=== PATIENT | male | born 1940 | race Caucasian/White ===

== ENCOUNTER → 2016-11-05 | Outpatient (REF) | payer MEDICARE, MEDICAID ==
[~2016-11-05] MED LIST: /TAMS4CA PO; ADV250INH INH; ALBU17IN INH; ASPI81TA85 PO; BAYECHW PO; COLA100C PO; COLA50CA3 PO; DAILTAB49 PO; DOXY100C PO; DRIS50002 PO; FLEEENE4 PR; FOLI1TAB2 PO; FOLI1TAB86 PO; LEVA500T PO; LEVA750T PO; LEVO750T PO; LOPE2CA PO; LOPE2TAB3 PO; MAALSUS18 PO; METO-346 PO; METO12TA PO; MILKSUS5 PO; MIRA255PW PO; MOM30SS PO; MULTTAB4 PO; PRED10TA2 PO; Proscar PO; SENO8.6T10 PO; SENO8.6T9 PO; SERT-141 PO; THIA100T PO; TUSSLIQ3 PO; TYLE325T5 PO; VITA10003 PO; VITA100T2 PO; VITMTA PO; Vitamin B12 PO; XANA0.25 PO; ZOLO100T PO; no
== END ==
PROVIDERS: ATTEND Nurse Practitioner Family
DX: E55.9 Vitamin D deficiency, unspecified (principal)

== ENCOUNTER → 2016-12-25 | Outpatient (REF) | payer MEDICARE, MEDICAID ==
[~2016-12-25] MED LIST changes: -COLA100C PO; +COLA100C3 PO; -SERT-141 PO; +SERT50TA PO
== END ==
LOC: M LAB REF 16:49
PROVIDERS: ATTEND Nurse Practitioner Family
DX: S31.100A Unspecified open wound of abdominal wall, right upper quadrant without penetration into peritoneal cavity, initial encounter (principal); X58.XXXA Exposure to other specified factors, initial encounter; Y92.89 Other specified places as the place of occurrence of the external cause; Y93.89 Activity, other specified; Y99.8 Other external cause status

== ENCOUNTER → 2017-01-16 | Outpatient (CLI) | payer MEDICARE, MEDICAID ==
[~2017-01-16] MED LIST changes: +NORCOTAB PO
--- NOTE | 2017-01-16 16:24 | REP ---
CHEST, ONE VIEW: This examination has a rib series with a two view chest. REASON: Pain, status-post fall. The rib series consists of four views of the left ribs. The technique in obtain his examination is suboptimal and the osseous structures are under penetrated by the radiographic beam. Even though manipulation at the physician read station has optimized contrast it can not be to the degree that could be obtained with proper radiographic technique. With this said there is a subtle fracture involving the anterior end of the 8th rib on the left. Other fractures could exist. The accompanying two view chest shows suspected basilar fibrotic changes, however, the costophrenic angles were not included in total on the frontal view further limiting this exam. The heart is not enlarged. There is no pneumothorax. When the frontal view of the chest is compared to the latest prior PA view of the chest which is dated 09/16/2012, there does not appear to be a significant change. IMPRESSION: 1. The examination is markedly limited as described above. Rib series repeat is recommended. 2. The frontal view of the chest is suboptimal and I can not completely evaluate the lung bases as described above. Although this limited exam shows no acute cardiopulmonary disease, I recommend a repeat PA view of the chest to include all of the chest. Signed by Frank Iniguez DO 01/16/2017 04:54 P
== END ==
LOC: M SMT 12:14
PROVIDERS: ATTEND Nurse Practitioner Family
DX: R07.89 Other chest pain (principal)

== ENCOUNTER 2017-01-17 12:13 | Emergency (ER) | payer MEDICARE, MEDICAID ==
[~2017-01-17] VITALS: Ht 182.9 cm; Wt 77.0 kg
[~2017-01-17 12:13] MED LIST changes: -NORCOTAB PO
[2017-01-17 12:26] VITALS: BP 136/74
[2017-01-17] MEDS ORDERED: NORCOTAB PO (13:36)
[2017-01-17] MEDS ORDERED: NORCO, ANEXSIA 5/325MG TABLET (HYDROcodone/ACETAMINOPHEN) PO ONE (13:45)
== END 2017-01-17 15:02 | disposition home or self-care (01) ==
LOC: EDBD 12:13 → M ED 13:40
DX: N40.1 Benign prostatic hyperplasia with lower urinary tract symptoms (principal); S22.32XA Fracture of one rib, left side, initial encounter for closed fracture; W19.XXXA Unspecified fall, initial encounter; Y92.89 Other specified places as the place of occurrence of the external cause; Y93.89 Activity, other specified; Y99.9 Unspecified external cause status

== ENCOUNTER 2017-03-03 12:36 | Emergency (ER) | payer MEDICARE, MEDICAID ==
[~2017-03-03] VITALS: Ht 182.9 cm; Wt 77.3 kg
[~2017-03-03 12:36] MED LIST changes: -ALBU83IN INH; -BREO1INH INH; -CIPR-249 PO; +COLA100C3 PO; -COLA100C5 PO; -FERR325T16 PO; +FOLI1TAB2 PO; -FOLI1TAB4 PO; -IPRASOL4 INH; -LEVA1TAB2 PO; +LEVA500T PO; +LEVA750T PO; -LEVA750T7 PO; -OMEP20CA3 PO; +THIA100T PO; -THIA100T6 PO
[2017-03-03 14:22] LABS: MEAN CORPUSCULAR HEMOGLOBIN 36.1 pg (27.0-33.0); MEAN CORPUSCULAR HGB CONC 33.8 g/dl (32.0-36.5); MEAN CORPUSCULAR VOLUME 106.8 fl (80.0-96.0); RED CELL DISTRIBUTION WIDTH 15.4 % (11.5-14.5); WHITE BLOOD COUNT 13.8 K/mm3 (4.0-10.0)
[2017-03-03 14:25] LABS: INR 1.02
[2017-03-03 15:34] VITALS: BP 107/67
== END 2017-03-03 15:39 | disposition home or self-care (01) ==
LOC: M ED 13:16
DX: T83.038A Leakage of other urinary catheter, initial encounter (principal); R31.9 Hematuria, unspecified; I10 Essential (primary) hypertension; N40.0 Benign prostatic hyperplasia without lower urinary tract symptoms

== ENCOUNTER → 2017-03-03 | Outpatient (REF) | payer MEDICARE, MEDICAID ==
[~2017-03-03] MED LIST changes: +ALBU83IN INH; +BREO1INH INH; +CIPR-249 PO; -COLA100C3 PO; +COLA100C5 PO; +FERR325T16 PO; -FOLI1TAB2 PO; +FOLI1TAB4 PO; +IPRASOL4 INH; +LEVA1TAB2 PO; -LEVA500T PO; -LEVA750T PO; +LEVA750T7 PO; +NORCOTAB PO; +OMEP20CA3 PO; -THIA100T PO; +THIA100T6 PO
== END ==
PROVIDERS: ATTEND Nurse Practitioner Family
DX: R31.9 Hematuria, unspecified (principal)

== ENCOUNTER → 2017-03-18 | Outpatient (REF) | payer MEDICARE, MEDICAID ==
[~2017-03-18] MED LIST changes: +ALBU83IN INH; +BREO1INH INH; +CIPR-249 PO; -COLA100C3 PO; +COLA100C5 PO; +FERR325T16 PO; -FOLI1TAB2 PO; +FOLI1TAB4 PO; +IPRASOL4 INH; +LEVA1TAB2 PO; -LEVA500T PO; -LEVA750T PO; +LEVA750T7 PO; +OMEP20CA3 PO; -THIA100T PO; +THIA100T6 PO
== END ==
LOC: M SMT 17:39
PROVIDERS: ATTEND Nurse Practitioner Women's Health
DX: N39.0 Urinary tract infection, site not specified (principal); N28.89 Other specified disorders of kidney and ureter
CPT/HCPCS: 81001; 87086; G0463

== ENCOUNTER → 2017-03-25 | Outpatient (REF) | payer MEDICARE, MEDICAID ==
[2017-03-25 10:02] LABS: ANION GAP 5 MEQ/L (8-16); BLOOD UREA NITROGEN 18 MG/DL (7-18); CALCIUM LEVEL 8.4 MG/DL (8.8-10.2); CARBON DIOXIDE LEVEL 31 MEQ/L (21-32); CHLORIDE LEVEL 105 MEQ/L (98-107); CREATININE FOR GFR 0.77 MG/DL (0.70-1.30); GLOMERULAR FILTRATION RATE > 60.0 (>42); GLUCOSE, FASTING 80 MG/DL (83-110); POTASSIUM SERUM 4.2 MEQ/L (3.5-5.1); SODIUM LEVEL 141 MEQ/L (136-145)
== END ==
PROVIDERS: ATTEND Nurse Practitioner Women's Health
DX: N39.0 Urinary tract infection, site not specified (principal)

== ENCOUNTER → 2017-03-31 | Outpatient (CLI) | payer MEDICARE, MEDICAID ==
--- NOTE | 2017-03-31 16:32 | REP ---
HISTORY: Urinary retention. COMPARISON: 12/19/2015 There are chronic lung base changes with bronchiectasis, status quo. There is a large hiatal hernia, status quo. Limited evaluation of the solid intraabdominal organs and gallbladder show no gross abnormalities or significant changes from the prior exam. Limited evaluation of the pancreas and adrenal glands show no gross abnormalities or significant changes from the prior exam. Once again, there is a large low density lesion seen arising from the superior pole of the right kidney which is unchanged. Limited evaluation of this shows no definite mural nodules, however, thin septations cannot be excluded by this limited exam. Two focal areas of low density are again seen in the right kidney, status quo. These also have low Hounsfield unit readings consistent with cysts. Limited evaluation of the abdominal aorta and periaortic regions again show multiple borderline, but stable periaortic lymph nodes. No free fluid or free air is seen in the abdomen. Limited evaluation of the bowel loops and their mesenteries show no gross abnormalities or significant changes from the prior exam. CT PELVIS: There is no significant change from the prior exam. There is a Mcfadden balloon seen in the urinary bladder decompressing it, status quo. There is no free fluid or free air. There is no change in the appearance of the bowel loops or their mesenteries. Bone window technique throughout the examination shows no significant change in the appearance of the osseous structures. Spinal degenerative changes are again noted, status quo. IMPRESSION: Chronic changes as described above. This limited noncontrast enhanced examination shows no evidence of an acute intraabdominal or intrapelvic process with findings as described above. Signed by Frank Iniguez DO 03/31/2017 07:08 P
== END ==
LOC: M RAD 14:43
PROVIDERS: ATTEND Nurse Practitioner Women's Health
DX: N39.0 Urinary tract infection, site not specified (principal); N28.89 Other specified disorders of kidney and ureter

== ENCOUNTER → 2017-05-06 | Outpatient (REF) | payer MEDICARE, MEDICAID ==
[2017-05-06 10:32] LABS: MEAN CORPUSCULAR HEMOGLOBIN 34.7 pg (27.0-33.0); MEAN CORPUSCULAR HGB CONC 33.8 g/dl (32.0-36.5); MEAN CORPUSCULAR VOLUME 102.6 fl (80.0-96.0); RED CELL DISTRIBUTION WIDTH 13.9 % (11.5-14.5); WHITE BLOOD COUNT 7.7 K/mm3 (4.0-10.0)
[2017-05-06 11:07] LABS: ALBUMIN/GLOBULIN RATIO 1.15 (1.00-1.93); ALKALINE PHOSPHATASE 55 U/L (45-117); ALT/SGPT 11 U/L (12-78); ANION GAP 7 MEQ/L (8-16); AST/SGOT 8 U/L (15-37); BILIRUBIN,TOTAL 0.3 MG/DL (0.2-1.0); BLOOD UREA NITROGEN 18 MG/DL (7-18); CALCIUM LEVEL 7.7 MG/DL (8.8-10.2); CARBON DIOXIDE LEVEL 29 MEQ/L (21-32); CHLORIDE LEVEL 108 MEQ/L (98-107); CREATININE FOR GFR 0.83 MG/DL (0.70-1.30); GLOMERULAR FILTRATION RATE > 60.0 (>42); GLUCOSE, FASTING 78 MG/DL (83-110); POTASSIUM SERUM 4.4 MEQ/L (3.5-5.1); SODIUM LEVEL 144 MEQ/L (136-145); TOTAL PROTEIN 5.6 GM/DL (6.4-8.2)
== END ==
PROVIDERS: ATTEND Nurse Practitioner Family
DX: E03.9 Hypothyroidism, unspecified (principal); D64.9 Anemia, unspecified; I10 Essential (primary) hypertension

== ENCOUNTER → 2017-06-25 | Outpatient (CLI) | payer MEDICARE, MEDICAID ==
[2017-06-25 11:05] LABS: MEAN CORPUSCULAR HEMOGLOBIN 33.8 pg (27.0-33.0); MEAN CORPUSCULAR HGB CONC 33.5 g/dl (32.0-36.5); MEAN CORPUSCULAR VOLUME 100.8 fl (80.0-96.0); PLATELET COUNT, AUTOMATED 147 10^3/uL (150-450); RED CELL DISTRIBUTION WIDTH 13.4 % (11.5-14.5); WHITE BLOOD COUNT 14.6 10^3/uL (4.0-10.0)
[2017-06-25 12:08] LABS: ANION GAP 7 MEQ/L (8-16); BLOOD UREA NITROGEN 18 MG/DL (7-18); CARBON DIOXIDE LEVEL 29 MEQ/L (21-32); CHLORIDE LEVEL 101 MEQ/L (98-107); CREATININE FOR GFR 0.85 MG/DL (0.70-1.30); GLOMERULAR FILTRATION RATE > 60.0 (>42); GLUCOSE, FASTING 98 MG/DL (83-110); POTASSIUM SERUM 4.2 MEQ/L (3.5-5.1); SODIUM LEVEL 137 MEQ/L (136-145)
--- NOTE | 2017-06-25 16:24 | REP ---
Chest two views HISTORY: Preop Comparison: 01/16/2017 Linear density is present in the left lower lobe consistent with scar. The right lung is clear. The heart is normal in size. The pulmonary vasculature is normal in appearance. A hiatal hernia is present. Degenerative change is present in the left shoulder. IMPRESSION: No acute disease. Signed by Darrick Jones MD 06/25/2017 10:38 A
--- NOTE | 2017-06-25 16:32 | ECGEPIP ---
Stationary ECG Study [facility] Test Date: 2017-06-25 Pat Name: TIGIST RAY Department: Room: - Gender: M Bender Machine: JERRI : [id number] Requested By: ANDREW Newton Order Number: [id number] Reading MD: Royal Sanford Measurements Intervals [place] Rate: 64 P: 48 AL: 134 QRS: 18 QRSD: 77 T: 71 QT: 395 QTc: 408 Interpretive Statements SINUS RHYTHM LOW QRS VOLTAGE IN EXTREMITY LEADS No significant change compared with 07/19/2016. Electronically Signed On 06-25-2017 16:32:39 EDT by Royal Sanford
== END ==
LOC: M LAB 09:48
PROVIDERS: ATTEND Urology
DX: N21.0 Calculus in bladder (principal); R94.31 Abnormal electrocardiogram [ECG] [EKG]

== ENCOUNTER → 2017-07-03 | Outpatient (REF) | payer MEDICARE, MEDICAID | LOC: M LAB REF 16:32 | PROVIDERS: ATTEND Urology | DX: N21.0 Calculus in bladder (principal) ==

== ENCOUNTER 2017-09-22 18:38 | Emergency (ER) | payer MEDICARE, MEDICAID ==
[2017-09-22] MEDS: CIPROFLOXACIN 500 MG TAB PO (00:15)
[2017-09-22] MEDS: LIDOCAINE 2% 5ML JELLY UROJET TOP (20:45)
[2017-09-22 20:59] LABS: HEMATOCRIT 39.2 % (42.0-52.0); HEMOGLOBIN 13.6 g/dl (14.0-18.0); MEAN CORPUSCULAR HEMOGLOBIN 34.1 pg (27.0-33.0); MEAN CORPUSCULAR HGB CONC 34.7 g/dl (32.0-36.5); MEAN CORPUSCULAR VOLUME 98.2 fl (80.0-96.0); PLATELET COUNT, AUTOMATED 157 10^3/uL (150-450); RED BLOOD COUNT 3.99 10^6/uL (4.30-6.10); RED CELL DISTRIBUTION WIDTH 13.6 % (11.5-14.5); WHITE BLOOD COUNT 18.2 10^3/uL (4.0-10.0)
[2017-09-22 21:10] LABS: INR 1.02; PARTIAL THROMBOPLASTIN TIME 25.3 SECONDS (26.8-37.9); PROTHROMBIN TIME 13.5 SECONDS (12.4-14.5)
[2017-09-22 21:15] LABS: ADD MANUAL DIFFER YES; POSITIVE DIFF POS FLAG
[2017-09-22 21:16] LABS: DIFF SLIDE NUMBER 374
[2017-09-22 21:19] LABS: ANION GAP 8 MEQ/L (8-16); BANDS 4 % (< 11); BLOOD UREA NITROGEN 33 MG/DL (7-18); CALCIUM LEVEL 8.6 MG/DL (8.8-10.2); CARBON DIOXIDE LEVEL 30 MEQ/L (21-32); CHLORIDE LEVEL 100 MEQ/L (98-107); CREATININE FOR GFR 1.14 MG/DL (0.70-1.30); GLOMERULAR FILTRATION RATE > 60.0 (>42); GLUCOSE, FASTING 118 MG/DL (83-110); LYMPHOCYTES 24 % (16-52); METAMYELOCYTES 1 % (0-0); MONOCYTES 6 % (0-8); NEUTROPHILS 65 % (35-75); POTASSIUM SERUM 4.2 MEQ/L (3.5-5.1); SODIUM LEVEL 138 MEQ/L (136-145)
[2017-09-22 21:20] LABS: PLATELET ESTIMATE NORMAL (NORMAL)
[2017-09-22 21:25] LABS: KETONE, URINE AUTO RFX NEGATIVE (NEGATIVE); NITRITE, URINE AUTO RFX NEGATIVE (NEGATIVE); RBC, URINE AUTO RFX 134 /HPF (0-3); SPECIFIC GRAVITY UR AUTO RFX 1.008 (1.002-1.035); SQUAM EPITHELIAL CELL UR AURFX 0 /HPF (0-6)
[2017-09-22 21:30] LABS: LEUKOCYTE ESTERASE UR AUTO RFX 2+ (NEGATIVE); WBC, URINE AUTO RFX 21 /HPF (0-3)
== END 2017-09-23 00:33 | disposition home or self-care (01) ==
LOC: M ED 09-23 00:33
DX: N39.0 Urinary tract infection, site not specified (principal); T83.9XXD Unspecified complication of genitourinary prosthetic device, implant and graft, subsequent encounter; Z79.899 Other long term (current) drug therapy; Z79.82 Long term (current) use of aspirin; Z79.51 Long term (current) use of inhaled steroids; Z87.442 Personal history of urinary calculi
CPT/HCPCS: 80048

== ENCOUNTER → 2017-10-21 | Outpatient (REF) | payer MEDICARE, MEDICAID ==
[2017-10-21 10:13] LABS: HEMATOCRIT 34.4 % (42.0-52.0); HEMOGLOBIN 11.9 g/dl (14.0-18.0); MEAN CORPUSCULAR HGB CONC 34.6 g/dl (32.0-36.5); MEAN CORPUSCULAR VOLUME 98.3 fl (80.0-96.0); PLATELET COUNT, AUTOMATED 113 10^3/uL (150-450); RED CELL DISTRIBUTION WIDTH 13.6 % (11.5-14.5); WHITE BLOOD COUNT 9.7 10^3/uL (4.0-10.0)
[2017-10-21 10:47] LABS: ALBUMIN 3.1 GM/DL (3.2-5.2); ALBUMIN/GLOBULIN RATIO 1.07 (1.00-1.93); ALKALINE PHOSPHATASE 86 U/L (45-117); ALT/SGPT 12 U/L (12-78); ANION GAP 8 MEQ/L (8-16); AST/SGOT 14 U/L (7-37); BILIRUBIN,TOTAL 0.5 MG/DL (0.2-1.0); BLOOD UREA NITROGEN 27 MG/DL (7-18); CALCIUM LEVEL 8.5 MG/DL (8.8-10.2); CARBON DIOXIDE LEVEL 31 MEQ/L (21-32); CHLORIDE LEVEL 100 MEQ/L (98-107); CREATININE FOR GFR 0.98 MG/DL (0.70-1.30); GLOMERULAR FILTRATION RATE > 60.0 (>42); GLUCOSE, FASTING 97 MG/DL (70-100); POTASSIUM SERUM 3.7 MEQ/L (3.5-5.1); SODIUM LEVEL 139 MEQ/L (136-145)
== END ==
DX: E03.9 Hypothyroidism, unspecified (principal)
CPT/HCPCS: 84443

== ENCOUNTER 2017-12-02 11:24 | Emergency (ER) | payer MEDICARE, MEDICAID | END 2017-12-02 14:24 | disposition home or self-care (01) | LOC: M ED 11:24 | DX: T83.098A Other mechanical complication of other urinary catheter, initial encounter (principal); Y92.9 Unspecified place or not applicable; Y93.9 Activity, unspecified; I51.9 Heart disease, unspecified; I10 Essential (primary) hypertension; J44.9 Chronic obstructive pulmonary disease, unspecified; D64.9 Anemia, unspecified; Z79.82 Long term (current) use of aspirin; Z79.899 Other long term (current) drug therapy | CPT/HCPCS: 51703 ==

== ENCOUNTER 2018-01-07 18:43 | Emergency (ER) | payer MEDICARE, MEDICAID | END 2018-01-07 21:01 | disposition home or self-care (01) | LOC: M ED 18:43 | DX: Z46.6 Encounter for fitting and adjustment of urinary device (principal); R33.9 Retention of urine, unspecified; I10 Essential (primary) hypertension; J44.9 Chronic obstructive pulmonary disease, unspecified; N40.1 Benign prostatic hyperplasia with lower urinary tract symptoms; Z87.891 Personal history of nicotine dependence; Z79.899 Other long term (current) drug therapy; Z79.82 Long term (current) use of aspirin; Z79.52 Long term (current) use of systemic steroids; Z79.51 Long term (current) use of inhaled steroids | CPT/HCPCS: 99284 ==

== ENCOUNTER 2018-01-18 11:06 | Emergency (ER) | payer MEDICARE, MEDICAID | END 2018-01-18 12:08 | disposition home or self-care (01) | LOC: M ED 11:06 | DX: T83.098A Other mechanical complication of other urinary catheter, initial encounter (principal); Y73.2 Prosthetic and other implants, materials and accessory gastroenterology and urology devices associated with adverse incidents; N40.1 Benign prostatic hyperplasia with lower urinary tract symptoms; J44.9 Chronic obstructive pulmonary disease, unspecified; K21.9 Gastro-esophageal reflux disease without esophagitis; Z79.899 Other long term (current) drug therapy; Z79.84 Long term (current) use of oral hypoglycemic drugs; Z79.82 Long term (current) use of aspirin | CPT/HCPCS: 87186 ==

== ENCOUNTER 2018-02-06 18:28 | Emergency (ER) | payer MEDICARE, MEDICAID ==
[2018-02-06] MEDS ORDERED: LIDOCAINE 2% 5ML JELLY UROJET TOP (20:00)
== END 2018-02-06 21:37 | disposition home or self-care (01) ==
LOC: M ED 18:28
DX: T83.018A Breakdown (mechanical) of other urinary catheter, initial encounter (principal); Y84.6 Urinary catheterization as the cause of abnormal reaction of the patient, or of later complication, without mention of misadventure at the time of the procedure; Z85.46 Personal history of malignant neoplasm of prostate; D64.9 Anemia, unspecified; J44.9 Chronic obstructive pulmonary disease, unspecified; K21.9 Gastro-esophageal reflux disease without esophagitis; Z79.899 Other long term (current) drug therapy; Z79.82 Long term (current) use of aspirin; Z79.52 Long term (current) use of systemic steroids; Z79.51 Long term (current) use of inhaled steroids
CPT/HCPCS: 87086

== ENCOUNTER 2018-03-05 10:00 | Emergency (ER) | payer MEDICARE, MEDICAID | END 2018-03-05 11:47 | disposition home or self-care (01) | LOC: M ED 10:00 | DX: T83.098A Other mechanical complication of other urinary catheter, initial encounter (principal); Y92.9 Unspecified place or not applicable; Y93.9 Activity, unspecified; J44.9 Chronic obstructive pulmonary disease, unspecified; D64.9 Anemia, unspecified; R33.9 Retention of urine, unspecified; F10.10 Alcohol abuse, uncomplicated; Z87.891 Personal history of nicotine dependence; Z79.82 Long term (current) use of aspirin; Z79.899 Other long term (current) drug therapy | CPT/HCPCS: 51703 ==

== ENCOUNTER 2018-04-28 14:04 | Emergency (ER) | payer MEDICARE, MEDICAID | END 2018-04-28 15:20 | disposition home or self-care (01) | LOC: M ED 14:04 | DX: T83.091A Other mechanical complication of indwelling urethral catheter, initial encounter (principal); Y84.6 Urinary catheterization as the cause of abnormal reaction of the patient, or of later complication, without mention of misadventure at the time of the procedure; R10.9 Unspecified abdominal pain; D64.9 Anemia, unspecified; N40.0 Benign prostatic hyperplasia without lower urinary tract symptoms; I10 Essential (primary) hypertension; K31.1 Adult hypertrophic pyloric stenosis; Z87.891 Personal history of nicotine dependence; Z79.899 Other long term (current) drug therapy; Z79.52 Long term (current) use of systemic steroids; Z79.82 Long term (current) use of aspirin | CPT/HCPCS: 99283 ==

== ENCOUNTER → 2018-05-08 | Outpatient (REF) | payer MEDICARE, MEDICAID ==
[2018-05-08 10:27] LABS: HEMATOCRIT 38.4 % (42.0-52.0); MEAN CORPUSCULAR HGB CONC 33.9 g/dl (32.0-36.5); MEAN CORPUSCULAR VOLUME 103.5 fl (80.0-96.0); PLATELET COUNT, AUTOMATED 156 10^3/uL (150-450); RED BLOOD COUNT 3.71 10^6/uL (4.30-6.10); RED CELL DISTRIBUTION WIDTH 13.8 % (11.5-14.5); WHITE BLOOD COUNT 14.7 10^3/uL (4.0-10.0)
[2018-05-08 11:02] LABS: ALBUMIN 3.4 GM/DL (3.2-5.2); ALBUMIN/GLOBULIN RATIO 1.03 (1.00-1.93); ALKALINE PHOSPHATASE 78 U/L (45-117); ALT/SGPT 14 U/L (12-78); ANION GAP 8 MEQ/L (8-16); AST/SGOT 9 U/L (7-37); BILIRUBIN,TOTAL 0.5 MG/DL (0.2-1.0); BLOOD UREA NITROGEN 21 MG/DL (7-18); CALCIUM LEVEL 8.5 MG/DL (8.8-10.2); CARBON DIOXIDE LEVEL 29 MEQ/L (21-32); CHLORIDE LEVEL 105 MEQ/L (98-107); GLOMERULAR FILTRATION RATE > 60.0 (>42); GLUCOSE, FASTING 94 MG/DL (70-100); POTASSIUM SERUM 4.1 MEQ/L (3.5-5.1); SODIUM LEVEL 142 MEQ/L (136-145); TOTAL PROTEIN 6.7 GM/DL (6.4-8.2)
== END ==
DX: D64.9 Anemia, unspecified (principal); I10 Essential (primary) hypertension; E05.90 Thyrotoxicosis, unspecified without thyrotoxic crisis or storm
CPT/HCPCS: 84443

== ENCOUNTER → 2018-06-15 | Outpatient (REF) | payer MEDICARE, MEDICAID ==
[2018-06-15 18:52] LABS: APPEARANCE, URINE CLEAR (CLEAR); BACTERIA, URINE AUTO NEGATIVE (NEGATIVE); BILIRUBIN, URINE AUTO NEGATIVE (NEGATIVE); BLOOD, URINE BLOOD 2+ (NEGATIVE); COLOR, URINE YELLOW (YELLOW); GLUCOSE, URINE (UA) AUTO NEGATIVE (NEGATIVE); KETONE, URINE AUTO NEGATIVE (NEGATIVE); LEUKOCYTE ESTERASE, URINE AUTO 1+ (NEGATIVE); MUCUS, URINE SMALL (NEGATIVE); NITRITE, URINE AUTO NEGATIVE (NEGATIVE); PROTEIN, URINE AUTO NEGATIVE (NEGATIVE); RBC, URINE AUTO 4 /HPF (0-3); SPECIFIC GRAVITY URINE AUTO 1.011 (1.002-1.035); SQUAMOUS EPITHELIAL CELL UR AU 0 /HPF (0-6); UROBILINOGEN, URINE AUTO 0.2 mg/dL (0.0-2.0); WBC, URINE AUTO 5 /HPF (0-3)
== END ==
LOC: M SMT 17:25
DX: R32 Unspecified urinary incontinence (principal)
CPT/HCPCS: 81001

== ENCOUNTER 2018-07-15 13:43 | Emergency (ER) | payer MEDICARE, MEDICAID | END 2018-07-15 15:11 | disposition home or self-care (01) | LOC: M ED 13:43 | DX: T83.098A Other mechanical complication of other urinary catheter, initial encounter (principal); Y92.9 Unspecified place or not applicable; Y93.9 Activity, unspecified; N40.1 Benign prostatic hyperplasia with lower urinary tract symptoms; J44.9 Chronic obstructive pulmonary disease, unspecified; D50.9 Iron deficiency anemia, unspecified; K31.1 Adult hypertrophic pyloric stenosis; Z87.891 Personal history of nicotine dependence; Z79.82 Long term (current) use of aspirin; Z79.899 Other long term (current) drug therapy | CPT/HCPCS: 99283 ==

== ENCOUNTER 2018-07-18 13:33 | Emergency (ER) | payer MEDICARE, MEDICAID | END 2018-07-18 15:00 | disposition home or self-care (01) | LOC: M ED 13:33 | DX: T83.028A Displacement of other urinary catheter, initial encounter (principal); I10 Essential (primary) hypertension; J44.9 Chronic obstructive pulmonary disease, unspecified; G47.33 Obstructive sleep apnea (adult) (pediatric) | CPT/HCPCS: 99283 ==

== ENCOUNTER 2018-07-19 13:08 | Emergency (ER) | payer MEDICARE, MEDICAID ==
[2018-07-19] MEDS: IPRATROPIUM 0.5MG/ALBUTEROL 2.5MG INH SOL UD 3ML (DUONEB)(J7620) NEB ×3 (13:37→14:33)
[2018-07-19] MEDS: predniSONE 20 MG TAB PO (14:45)
== END 2018-07-19 16:03 | disposition home or self-care (01) ==
LOC: M ED 13:08
DX: T83.098A Other mechanical complication of other urinary catheter, initial encounter (principal); J44.1 Chronic obstructive pulmonary disease with (acute) exacerbation; I10 Essential (primary) hypertension; F41.9 Anxiety disorder, unspecified; Z79.899 Other long term (current) drug therapy; Z79.82 Long term (current) use of aspirin; Z87.891 Personal history of nicotine dependence
CPT/HCPCS: 99284

== ENCOUNTER → 2018-08-12 | Outpatient (REF) | payer MEDICARE, MEDICAID ==
[2018-08-12 14:21] LABS: AMORPHOUS SEDIMENT SMALL (NEGATIVE); APPEARANCE, URINE CLOUDY (CLEAR); BACTERIA, URINE AUTO 1+ (NEGATIVE); BILIRUBIN, URINE AUTO NEGATIVE (NEGATIVE); BLOOD, URINE BLOOD 3+ (NEGATIVE); COLOR, URINE YELLOW (YELLOW); GLUCOSE, URINE (UA) AUTO NEGATIVE (NEGATIVE); KETONE, URINE AUTO NEGATIVE (NEGATIVE); LEUKOCYTE ESTERASE, URINE AUTO 3+ (NEGATIVE); MUCUS, URINE SMALL (NEGATIVE); NITRITE, URINE AUTO NEGATIVE (NEGATIVE); PROTEIN, URINE AUTO NEGATIVE (NEGATIVE); RBC, URINE AUTO 52 /HPF (0-3); SPECIFIC GRAVITY URINE AUTO 1.014 (1.002-1.035); SQUAMOUS EPITHELIAL CELL UR AU 0 /HPF (0-6); UROBILINOGEN, URINE AUTO 0.2 mg/dL (0.0-2.0); WBC, URINE AUTO 51 /HPF (0-3)
== END ==
DX: R41.82 Altered mental status, unspecified (principal)
CPT/HCPCS: 81001

== ENCOUNTER → 2018-09-04 | Outpatient (REF) | payer MEDICARE, MEDICAID ==
[~2018-09-04] MED LIST changes: +ACET20%4ML INH; +ASPI81TA24 PO; +CLAR10CA3 PO; -DRIS50002 PO; +DRIS50003 PO; +FOLI1TAB11 PO; -FOLI1TAB4 PO; +HYDR-3713 PO; +IPRA0.00 INH; -IPRASOL4 INH; +LASI40TA9 PO; +METO1TAB87 PO; +PRED10PA2 PO; +SERT-138 PO; -THIA100T6 PO; +THIA100T7 PO; +VENTAER INH
[2018-09-04 18:16] LABS: APPEARANCE, URINE HAZY (CLEAR); BACTERIA, URINE AUTO NEGATIVE (NEGATIVE); BILIRUBIN, URINE AUTO NEGATIVE (NEGATIVE); BLOOD, URINE BLOOD 2+ (NEGATIVE); COLOR, URINE YELLOW (YELLOW); GLUCOSE, URINE (UA) AUTO NEGATIVE (NEGATIVE); KETONE, URINE AUTO NEGATIVE (NEGATIVE); LEUKOCYTE ESTERASE, URINE AUTO 2+ (NEGATIVE); MUCUS, URINE SMALL (NEGATIVE); NITRITE, URINE AUTO NEGATIVE (NEGATIVE); PROTEIN, URINE AUTO NEGATIVE (NEGATIVE); RBC, URINE AUTO 5 /HPF (0-3); SPECIFIC GRAVITY URINE AUTO 1.012 (1.002-1.035); SQUAMOUS EPITHELIAL CELL UR AU 0 /HPF (0-6); UROBILINOGEN, URINE AUTO 0.2 mg/dL (0.0-2.0); WBC, URINE AUTO 57 /HPF (0-3)
== END ==
LOC: M SMT 16:49
PROVIDERS: ATTEND Nurse Practitioner Women's Health
DX: N50.819 Testicular pain, unspecified (principal)

== ENCOUNTER 2018-09-09 10:14 | Inpatient (IN) | payer MEDICARE, MEDICAID ==
[~2018-09-09] VITALS: Ht 175.3 cm; Wt 94.7 kg
[~2018-09-09 10:14] MED LIST changes: -ACET20%4ML INH; -CLAR10CA3 PO; -PRED10PA2 PO
[2018-09-09 10:37] LABS: ABG HCO3 27.3 MEQ/L (22.0-26.0); ABG O2 SATURATION 95.1 % (95.0-99.0); ABG PARTIAL PRESSURE CO2 40.9 mmHg (35.0-45.0); ABG STANDARD HCO3 27.1 MEQ/L (22.0-26.0); ABG TOTAL CO2 28.6 MEQ/L (23.0-31.0); ABG pH (ARTERIAL) 7.443 UNITS (7.350-7.450)
[2018-09-09 10:40] LABS: HEMATOCRIT 39.1 % (42.0-52.0); HEMOGLOBIN 13.1 g/dl (13.5-17.5); MEAN CORPUSCULAR HEMOGLOBIN 35.5 pg (27.0-33.0); MEAN CORPUSCULAR HGB CONC 33.5 g/dl (32.0-36.5); PLATELET COUNT, AUTOMATED 106 10^3/uL (150-450); RED BLOOD COUNT 3.69 10^6/uL (4.30-6.10)
[2018-09-09] MEDS ORDERED: CLAR10CA3 PO (10:41)
[2018-09-09] MEDS ORDERED: CIPR-249 PO (10:41)
[2018-09-09 10:42] LABS: WHITE BLOOD COUNT 11.7 10^3/uL (4.0-10.0)
--- NOTE | 2018-09-09 10:50 | REP ---
Chest one-view HISTORY: Cough Comparison: 06/25/2017 Linear density is present in the left lower lobe consistent with scar. The right lung is clear. The heart is normal in size. The pulmonary vasculature is normal in appearance. Impression: No acute disease. Electronically Signed by Darrick Jones MD 09/09/2018 10:42 A
[2018-09-09 11:03] LABS: ATYPICAL LYMPH 5 % (0-5); BASOPHILS 1 % (0-4); LYMPHOCYTES 40 % (16-52); MONOCYTES 6 % (0-8); NEUTROPHILS 48 % (35-75); PLATELET ESTIMATE DECREASED (NORMAL)
[2018-09-09] MEDS ORDERED: IPRATROPIUM 0.5MG/ALBUTEROL 2.5MG INH SOL UD 3ML (DUONEB)(J7620) NEB ONE (11:15)
[2018-09-09 11:17] LABS: ALBUMIN 3.5 GM/DL (3.2-5.2); BILIRUBIN,DIRECT 0.2 MG/DL (0.0-0.2); BILIRUBIN,TOTAL 0.7 MG/DL (0.2-1.0); CALCIUM LEVEL 8.8 MG/DL (8.8-10.2); CREATININE FOR GFR 1.29 MG/DL (0.70-1.30); GLOMERULAR FILTRATION RATE 57.6 (>42); MB/CK RELATIVE INDEX 1.55 (< OR =4); THYROID STIMULATING HORMONE 0.666 uIU/ML (0.358-3.740); TOTAL PROTEIN 7.3 GM/DL (6.4-8.2); TROPONIN I 0.03 NG/ML (< 0.10)
[2018-09-09] MEDS ORDERED: OSELTAMIVIR PHOSPHATE 75 MG CAP (TAMIFLU) PO ONE (13:00)
[2018-09-09 13:32] VITALS: O2SAT 90
[2018-09-09] MEDS ORDERED: methylPREDNISolone INJ 125 MG/2 ML VIAL (J2930) IV ONE (13:45)
[2018-09-09] MEDS: HEPARIN SOD (PORCINE) 5000 UNITS/ML VIAL SC SCH ×2 (14:00→21:05)
[2018-09-09] MEDS ORDERED: ACETAMINOPHEN TAB 650MG DOSE (2X325MG) PO PRN (14:30)
--- NOTE | 2018-09-09 14:58 | HPEPDOC ---
General Date of Admission Sep 09, 2018 at 14:29 Chief Complaint The patient is a 78-year-old male who presented to the ER with complaints of ryne rtness of breath History of Present Illness Patient is a 78-year-old male with a PMHx of HTN, COPD on O2, Depression, BPH / Urinary retention (s/p Chronic Mcfadden catheter), Hx of PVC, GERD who is a resident of [facility] who presented to the emergency room with complaints of shortness of breath that has been going on for approximately 7-10 days. Patient has noted that his shortness of breath has been progressive. . He denies any chest pain or palpitations. Denies any productive cough. Denies any fevers or chills. Patient does report two-pillow orthopnea but denies any nighttime awakenings because of shortness of breath. Patient denies any lower extremity edema. Patient denies any nausea, vomiting, abdominal pain, constipation or diarrhea. Patient does have a chronic Mcfadden catheter in place. He is unsure of when this was last changed. He does follow with Dr. Guerra as an outpatient. As per ER staff, patient has been reported to be noncompliant with his oxygen use as an outpatient. Patient denies any significant change to his weight, and notes that his appetite has improved over the years. Home Medications Scheduled Albuterol/Ipratropium (Ipratropium [place]/Albut 0.5-2.5 (3) mg/3Ml) 1 Jennifer Jennifer, 1 JENNIFER INH TID, (Reported) 0600/1400/2000 Aspirin (Aspirin EC) 81 Mg Tab, 81 MG PO DAILY, (Reported) Ciprofloxacin HCl (Cipro) 500 Mg Tab, 500 MG PO BID, (Reported) FOR 11 DAYS. FINISH ON 09/15/18. Cyanocobalamin (Vitamin B-12 Cr) 1,000 Mcg Tab, 1,000 MCG PO DAILY, (Reported) Docusate Sod/Senna (Senokot S 8.6-50 mg) 1 Tab Tab, 1 TAB PO DAILY, (Reported) Docusate Sodium (Colace) 100 Mg Cap, 100 MG PO BID, (Reported) Ferrous Gluconate (Ferrous Gluconate) 324 Mg Tab, 324 MG PO BID, (Reported) Fluticasone/Vilanterol (Breo Ellipta 100-25 Mcg/INH) 1 Inh Inh, 1 PUFF INH DAILY, (Reported) Folic Acid (Folic Acid) 1 Mg Tab, 1 MG PO DAILY, (Reported) Furosemide (Lasix) 40 Mg Tab, 40 MG PO DAILY, (Reported) Loratadine (Claritin) 10 Mg Cap, 10 MG PO DAILY, (Reported) Metoprolol Tartrate (Metoprolol Tartrate) 25 Mg Tab, 12.5 MG PO BID, (Reported) Omeprazole (Omeprazole) 20 Mg Cap, 20 MG PO DAILY, (Reported) Prednisone (Prednisone) 10 Mg Tab, 10 MG PO DAILY, (Reported) Sertraline HCl (Sertraline HCl) 100 Mg Tab, 150 MG PO DAILY, (Reported) Thiamine HCl (Thiamine HCl) 100 Mg Tab, 100 MG PO DAILY, (Reported) Scheduled PRN Acetaminophen (Tylenol) 325 Mg Tab, 650 MG PO Q4H PRN for PAIN, (Reported) Acetaminophen/Hydrocodone (Hydrocodone/Acetaminophen 5-325 mg) 1 Tab Tab, 1 TAB PO Q6H PRN for PAIN, (Reported) Albuterol Sulfate (Albuterol Sulfate) 2.5 Mg/3 Ml Nebu, 2.5 MG INH Q2HP PRN for SOB/WHEEZING, (Reported) Albuterol Sulfate (Ventolin Hfa) 108 Mcg/Act Aer, 2 PUFFS INH Q6H PRN for SHORTNESS OF BREATH, (Reported) Loperamide HCl (Loperamide HCl) 2 Mg Cap, 2 MG PO for DIARRHEA, (Reported) Allergies Coded Allergies: No Known Allergies (Verified , 03/05/18) Past Medical History Medical History HTN, COPD on O2, Depression, BPH / Urinary retention (s/p Chronic Mcfadden catheter), Hx of PVC, GERD Surgical History Hx of Pyloric stenosis - s/p repair (Child) Family History - Noncontributory given advanced age Social History - Denies the use of illicit drugs; quit smoking 5 years ago but was a smoker of 50 years at 1 [facility]. 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 No evidence of rhonchi, rales - Abdomen: Soft, Non-distended, Non-tender, old scar/stretched lesions from prior surgery - Extremities: No lower extremity edema, No calf tenderness - Neuro: No focal motor or sensory deficit - Skin: No visible rashes Laboratory Data Labs 24H Laboratory Tests 2 09/09/18 10:23: Blood Gas Bicarbonate Standard 27.1H, Arterial Blood pH 7.443, Arterial Blood Partial Pressure CO2 40.9, Arterial Blood Partial Pressure O2 76.0, Arterial Blo od Total CO2 28.6, Arterial Blood HCO3 27.3H, Arterial Blood Base Excess 3.0H, Arterial Blood Oxygen Saturation 95.1 09/09/18 10:29: White Blood Count 11.7H, Red Blood Count 3.69L, Hemoglobin 13.1L, Hematocrit 39.1L, Mean Corpuscular Volume 106.0H, Mean Corpuscular Hemoglobin 35.5H, Mean Corpuscular Hemoglobin Concent 33.5, Red Cell Distribution Width 13.5, Platelet Count 106L, Lymphocytes # (Auto) , Nucleated Red Blood Cells % (auto) 0.0, Neutrophils 48, Lymphocytes (Manual) 40, Monocytes (Manual) 6, Basophils (Manual) 1, Atypical Lymphocytes 5, Platelet Estimate DECREASED, Macrocytosis 2+, Anion Gap 8, Glomerular Filtration Rate 57.6, Lactic Acid Level 1.4, Calcium Level 8.8, Aspartate Amino Transf (AST/SGOT) 29, Alanine Aminotransferase (ALT/SGPT) 26, Alkaline Phosphatase 90, Total Bilirubin 0.7, Direct Bilirubin 0.2, Total Creatine Kinase 110, Creatine Kinase MB 2.0, Creatine Kinase MB Relative Index 1.55, Troponin I 0.03, LO-Gbh-N-Type Natriuretic Peptide 548H, Total Protein 7.3, Albumin 3.5, Albumin/Globulin Ratio 0.92L, Thyroid Stimulating Hormone (TSH) 0.666 CBC/BMP Laboratory Tests 09/09/18 10:29 Red Blood Count 3.69 L, Mean Corpuscular Volume 106.0 H, Mean Corpuscular Hemoglobin 35.5 H, Mean Corpuscular Hemoglobin Concent 33.5, Red Cell Distribution Width 13.5, Lymphocytes # (Auto) Microbiology Microbiology 09/09/18 Blood Culture, Received Pending 09/09/18 Blood Culture, Received Pending 09/09/18 Respiratory Virus Panel (PCR) ([facility]) - Final, Complete Influenza A H1-2008 Plan / VTE VTE Prophylaxis Ordered?: Yes Plan Plan Acute hypoxic respiratory failure / Shortness of breath - Presented to the ER with complaints of shortness of breath - Has been reported to use oxygen as an outpatient for COPD; however has not been compliant - Physical reveals mild expiratory wheezing - Mild leukocytosis, no lactic acidosis - Respiratory panel: + Influenza A - CXR 09/09: No acute disease. - s/p Solumedrol 125mg in ER - c/w Inhaled therapy as ordered and Solumedrol 30 IV q8h - c/w Tamiflu HTN - BP well controlled - Reported history of orthopnea - Will check ECHO - c/w Metoprolol / Furosemide Depression - c/w Sertraline BPH / Urinary retention - s/p Chronic Mcfadden catheter - Changed on 09/05/18 by Urology clinic - Was prescribed Ciprofloxacin 500mg BID (Day #4) Hx of PVC GERD - c/w Omeprazole DVT prophylaxis - Will start Heparin BRISEIDA ALBRECHT MD Sep 09, 2018 14:58
[2018-09-09] MEDS ORDERED: NORCO, ANEXSIA 5/325MG TABLET (HYDROcodone/ACETAMINOPHEN) PO PRN (16:30)
[2018-09-09 16:45] VITALS: BP 161/80
[2018-09-09] MEDS: IPRATROPIUM 0.5MG/ALBUTEROL 2.5MG INH SOL UD 3ML (DUONEB)(J7620) NEB SCH ×2 (21:02→21:03)
[2018-09-09] MEDS: methylPREDNISolone INJ 40 MG/1 ML VIAL (J2920) IV SCH (21:03)
[2018-09-09] MEDS: CIPROFLOXACIN 500 MG TAB PO SCH (21:04)
[2018-09-09] MEDS: FERROUS GLUCONATE 324 MG TAB PO SCH (21:04)
[2018-09-09] MEDS: METOPROLOL TART 12.5 MG PER 1/2 TAB PO SCH (21:04)
[2018-09-09] MEDS: OSELTAMIVIR PHOSPHATE 75 MG CAP (TAMIFLU) PO SCH (21:04)
--- NOTE | 2018-09-09 21:57 | ECHO ---
DATE OF PROCEDURE: 09/09/2018 REFERRING PHYSICIAN: Jennifer Fleming MD PATIENT LOCATION: Room 4222 REASON FOR ECHOCARDIOGRAM: Shortness of breath. 2D MEASUREMENTS: IVS: LV: LVPW: LA: Aorta: IVC/inferior vena cava: 1.4 cm DOPPLER MEASUREMENTS: Peak velocity across the aortic valve: 0.95 Peak velocity across the LVOT: 0.55 Mitral E: 0.5, Mitral A: 0.7, with a ratio of 0.7 Maximum tricuspid valve velocity: 2.8 m/s 2D COMMENTS: 1. Technically limited study due to poor acoustic window. 2. The left ventricular size appeared to be normal as well as left ventricular wall thickness and systolic function. The estimated global left ventricular ejection fraction is 60%. 3. The left atrium appeared to be normal in limited views. The right ventricle and the right atrium were not well visualized, but appeared to be normal in limited views. 4. The aortic root was not well visualized. 5. No pericardial effusion seen. 6. The aortic valve was not well visualized. The mitral valve and the tricuspid valve appeared to be normal in limited views. The pulmonic valve and proximal pulmonary artery branches were not well visualized. 7. The inferior vena cava appeared to be normal in size in limited views. DOPPLER: Only mild tricuspid regurgitation detected. The calculated pulmonary artery systolic pressure varied between 30 to 40 mmHg. Abnormal relaxation pattern was noted across the mitral valve leaflets as well as the mitral valve annulus consistent with delayed relaxation. IMPRESSION: 1. Technically limited study. 2. As mentioned above.
[2018-09-09 22:00] VITALS: BP 138/92
[2018-09-10] MEDS: methylPREDNISolone INJ 40 MG/1 ML VIAL (J2920) IV SCH ×3 (05:13→21:27)
[2018-09-10] MEDS: HEPARIN SOD (PORCINE) 5000 UNITS/ML VIAL SC SCH ×3 (05:14→21:26)
[2018-09-10] MEDS: IPRATROPIUM 0.5MG/ALBUTEROL 2.5MG INH SOL UD 3ML (DUONEB)(J7620) NEB PRN ×2 (05:20→22:36)
[2018-09-10 05:51] LABS: HEMOGLOBIN 11.7 g/dl (13.5-17.5); MEAN CORPUSCULAR HEMOGLOBIN 34.6 pg (27.0-33.0); MEAN CORPUSCULAR HGB CONC 33.4 g/dl (32.0-36.5); MEAN CORPUSCULAR VOLUME 103.6 fl (80.0-96.0); PLATELET COUNT, AUTOMATED 104 10^3/uL (150-450); RED BLOOD COUNT 3.38 10^6/uL (4.30-6.10)
[2018-09-10 05:54] LABS: WHITE BLOOD COUNT 11.6 10^3/uL (4.0-10.0)
[2018-09-10 06:00] VITALS: BP 140/82
[2018-09-10 06:12] LABS: ALT/SGPT 23 U/L (12-78); BILIRUBIN,TOTAL 0.4 MG/DL (0.2-1.0); BLOOD UREA NITROGEN 38 MG/DL (7-18); CALCIUM LEVEL 8.5 MG/DL (8.8-10.2); CARBON DIOXIDE LEVEL 31 MEQ/L (21-32); CHLORIDE LEVEL 101 MEQ/L (98-107); CREATININE FOR GFR 1.15 MG/DL (0.70-1.30); GLOMERULAR FILTRATION RATE > 60.0 (>42); GLUCOSE, FASTING 128 MG/DL (70-100); MAGNESIUM LEVEL 2.2 MG/DL (1.8-2.4); POTASSIUM SERUM 4.1 MEQ/L (3.5-5.1); SODIUM LEVEL 139 MEQ/L (136-145); TOTAL PROTEIN 6.5 GM/DL (6.4-8.2)
[2018-09-10 06:31] LABS: ATYPICAL LYMPH 1 % (0-5); LYMPHOCYTES 34 % (16-52); MONOCYTES 7 % (0-8); NEUTROPHILS 58 % (35-75)
[2018-09-10 06:32] LABS: GIANT PLATELETS 1+; PLATELET ESTIMATE DECREASED (NORMAL)
[2018-09-10] MEDS: IPRATROPIUM 0.5MG/ALBUTEROL 2.5MG INH SOL UD 3ML (DUONEB)(J7620) NEB SCH ×4 (07:20→20:07)
[2018-09-10] MEDS: OMEPRAZOLE 20 MG CAP PO SCH (09:08)
[2018-09-10] MEDS: ASPIRIN 81 MG ENTERIC TAB PO SCH (09:08)
[2018-09-10] MEDS: FOLIC ACID 1 MG TAB PO SCH (09:08)
[2018-09-10] MEDS: LORATADINE 10 MG TAB PO SCH (09:08)
[2018-09-10] MEDS: CYANOCOBALAMIN 500 MCG TAB PO SCH (09:08)
[2018-09-10] MEDS: FERROUS GLUCONATE 324 MG TAB PO SCH ×2 (09:08→21:27)
[2018-09-10] MEDS: THIAMINE 100 MG TAB PO SCH (09:08)
[2018-09-10] MEDS: OSELTAMIVIR PHOSPHATE 75 MG CAP (TAMIFLU) PO SCH ×2 (09:08→21:27)
[2018-09-10] MEDS: CIPROFLOXACIN 500 MG TAB PO SCH ×2 (09:08→21:27)
[2018-09-10] MEDS: SENOKOT S TAB PO SCH (09:08)
[2018-09-10] MEDS: SERTRALINE HCL 50 MG TAB PO SCH (09:08)
[2018-09-10] MEDS: FUROSEMIDE 40 MG TAB PO SCH (09:08)
[2018-09-10] MEDS: METOPROLOL TART 12.5 MG PER 1/2 TAB PO SCH ×2 (09:09→21:27)
--- NOTE | 2018-09-10 10:44 | IPNPDOC ---
Text Note Date of Service The patient was seen on 09/10/18. NOTE Subjective: Patient is a 78-year-old male with a PMHx of HTN, COPD on O2, Depression, BPH / Urinary retention (s/p Chronic Mcfadden catheter), Hx of PVC, SANA D who is a resident of [facility] who presented to the emergency room with complaints of shortness of breath that has been going on for approximately 7-10 days. Patient was found to have positive Influenza in the ER. There admitted to the hospitalist service for further evaluation and treatment. Patient was seen and examined at the bedside. Currently patient denies any difficulty breathing. Denies chest pain or palpitations. Denies nausea, vomiting, abdominal pain, constipation, diarrhea or discomfort with urination. . He does have a chronic Mcfadden catheter in place. Objective: Vitals (See below) General: Lying in bed, no acute distress, comfortable, AAOx3 HEENT: NC, AT CVS: RRR, +S1S2 Lungs: Fair air entry b/l, mild wheezing, no appreciable rhonchi / rales Abdomen: Soft, ND, NT Extremities: - Edema, - Calf tenderness Assessment and plan: Chronic hypoxic respiratory failure / Shortness of breath - Presented to the ER with complaints of shortness of breath - Has been reported to use oxygen as an outpatient for COPD; however has not b een compliant - Physical continues to reveal mild expiratory wheezing - Mild leukocytosis, no lactic acidosis - Respiratory panel: + Influenza A - CXR /2: No acute disease. - c/w Inhaled therapy as ordered and current dose of Solumedrol; will begin to taper tomorrow - c/w Tamiflu (Day #2) HTN - BP well controlled - ECHO /2: Evidence of diastolic dysfunction - c/w Metoprolol / Furosemide Depression - c/w Sertraline BPH / Urinary retention - s/p Chronic Mcfadden catheter - Changed on 09/05/18 by Urology clinic - c/w Ciprofloxacin 500mg BID (Day #5) Hx of PVC GERD - c/w Omeprazole DVT prophylaxis - c/w Heparin Disposition: - Awaiting clinical improvement - Taper steroids - Start physical therapy VS,Fishbone, I+O VS, Fishbone, I+O Laboratory Tests 09/10/18 05:36 Red Blood Count 3.38 L, Mean Corpuscular Volume 103.6 H, Mean Corpuscular Hemoglobin 34.6 H, Mean Corpuscular Hemoglobin Concent 33.4, Red Cell Distri bution Width 13.2, Lymphocytes # (Auto) , Calcium Level 8.5 L, Aspartate Amino Transf (AST/SGOT) 23, Alanine Aminotransferase (ALT/SGPT) 23, Alkaline Phosphatase 74, Total Bilirubin 0.4, Total Protein 6.5, Albumin 3.0 L Vital Signs Date Time Temp Pulse Resp B/P (MAP) Pulse Ox O2 Delivery O2 Flow Rate FiO2 09/10/18 09:09 76 146/80 09/10/18 06:00 96.6 22 94 Nasal Cannula 2.0 I&O- Last 24 Hours up to 6 AM 09/10/18 05:59 Intake Total 100 ml Output Total 500 ml Balance -400 ml BRISEIDA ALBRECHT MD Sep 10, 2018 10:44
[2018-09-10 14:00] VITALS: BP 123/74
[2018-09-10 22:00] VITALS: BP 137/82
[2018-09-11] MEDS: HEPARIN SOD (PORCINE) 5000 UNITS/ML VIAL SC SCH ×3 (05:07→21:05)
[2018-09-11] MEDS: methylPREDNISolone INJ 40 MG/1 ML VIAL (J2920) IV SCH (05:07)
[2018-09-11 06:00] VITALS: BP 138/68
[2018-09-11 06:03] LABS: BASO % 0.1 % (0.0-1.0); HEMATOCRIT 31.8 % (42.0-52.0); HEMOGLOBIN 10.7 g/dl (13.5-17.5); LYMPH # 3.2 10^3/uL (1.5-4.5); LYMPH % 35.2 % (24.0-44.0); MEAN CORPUSCULAR HEMOGLOBIN 34.6 pg (27.0-33.0); MEAN CORPUSCULAR HGB CONC 33.6 g/dl (32.0-36.5); MEAN CORPUSCULAR VOLUME 102.9 fl (80.0-96.0); MONO # 0.7 10^3/uL (0.0-0.8); MONO % 7.4 % (0.0-5.0); NEUTROPHILS # 5.2 10^3/uL (1.8-7.7); NEUTROPHILS % 56.4 % (36.0-66.0); PLATELET COUNT, AUTOMATED 100 10^3/uL (150-450); RED BLOOD COUNT 3.09 10^6/uL (4.30-6.10); WHITE BLOOD COUNT 9.2 10^3/uL (4.0-10.0)
[2018-09-11 06:35] LABS: ALBUMIN 2.6 GM/DL (3.2-5.2); ALT/SGPT 22 U/L (12-78); BILIRUBIN,TOTAL 0.3 MG/DL (0.2-1.0); BLOOD UREA NITROGEN 36 MG/DL (7-18); CALCIUM LEVEL 8.1 MG/DL (8.8-10.2); CARBON DIOXIDE LEVEL 29 MEQ/L (21-32); CHLORIDE LEVEL 99 MEQ/L (98-107); CREATININE FOR GFR 1.15 MG/DL (0.70-1.30); GLOMERULAR FILTRATION RATE > 60.0 (>42); GLUCOSE, FASTING 141 MG/DL (70-100); MAGNESIUM LEVEL 2.2 MG/DL (1.8-2.4); POTASSIUM SERUM 3.7 MEQ/L (3.5-5.1); SODIUM LEVEL 137 MEQ/L (136-145)
[2018-09-11] MEDS: IPRATROPIUM 0.5MG/ALBUTEROL 2.5MG INH SOL UD 3ML (DUONEB)(J7620) NEB SCH ×4 (07:26→20:55)
[2018-09-11] MEDS: ASPIRIN 81 MG ENTERIC TAB PO SCH (09:10)
[2018-09-11] MEDS: LORATADINE 10 MG TAB PO SCH (09:10)
[2018-09-11] MEDS: THIAMINE 100 MG TAB PO SCH (09:10)
[2018-09-11] MEDS: FOLIC ACID 1 MG TAB PO SCH (09:10)
[2018-09-11] MEDS: OMEPRAZOLE 20 MG CAP PO SCH (09:10)
[2018-09-11] MEDS: CYANOCOBALAMIN 500 MCG TAB PO SCH (09:10)
[2018-09-11 09:11] VITALS: BP 138/91
[2018-09-11] MEDS: FUROSEMIDE 40 MG TAB PO SCH (09:11)
[2018-09-11] MEDS: OSELTAMIVIR PHOSPHATE 75 MG CAP (TAMIFLU) PO SCH ×2 (09:11→21:05)
[2018-09-11] MEDS: SERTRALINE HCL 50 MG TAB PO SCH (09:11)
[2018-09-11] MEDS: FERROUS GLUCONATE 324 MG TAB PO SCH ×2 (09:11→21:05)
[2018-09-11] MEDS: SENOKOT S TAB PO SCH (09:11)
[2018-09-11] MEDS: CIPROFLOXACIN 500 MG TAB PO SCH ×2 (09:11→21:05)
[2018-09-11] MEDS: METOPROLOL TART 12.5 MG PER 1/2 TAB PO SCH ×2 (09:12→21:11)
[2018-09-11] MEDS: methylPREDNISolone INJ 125 MG/2 ML VIAL (J2930) IV SCH ×2 (13:55→21:04)
[2018-09-11 14:00] VITALS: BP_SYST 119; BP_SYST 136; BP_DIAS 76; BP_DIAS 77
--- NOTE | 2018-09-11 14:34 | IPNPDOC ---
Text Note Date of Service The patient was seen on 09/11/18. NOTE Subjective: Patient is a 78-year-old male with a PMHx of HTN, COPD on O2, Depression, BPH / Urinary retention (s/p Chronic Mcfadden catheter), Hx of PVC, SANA D who is a resident of [facility] who presented to the emergency room with complaints of shortness of breath that has been going on for approximately 7-10 days. Patient was found to have positive Influenza in the ER. There admitted to the hospitalist service for further evaluation and treatment. Patient was seen and examined at the bedside. Patient is that there is still experiencing some shortness of breath overnight. Denies any chest pain, palpitations or significant cough, nausea, vomiting, abdominal pain, constipation, diarrhea or discomfort with urination. Objective: Vitals (See below) General: Lying in bed, no acute distress, comfortable, AAOx3 HEENT: NC, AT CVS: RRR, +S1S2 Lungs: Fair air entry b/l, auscultation. Still reveals mild wheezing bilaterally. There is no evidence of rales or rhonchi Abdomen: Soft, Non-distended without tenderness Extremities: NO LE edema, - Calf tenderness Assessment and plan: Chronic hypoxic respiratory failure / Shortness of breath - Presented to the ER with complaints of shortness of breath - Has been reported to use oxygen as an outpatient for COPD; however has not been compliant - Physical continues to reveal mild expiratory wheezing - s/p leukocytosis, no lactic acidosis - Respiratory panel: + Influenza A - CXR 1/2: No acute disease. - c/w Inhaled therapy - Will resume Solumedrol - c/w Tamiflu (Day #3) HTN - BP well controlled - ECHO 1/2: Evidence of diastolic dysfunction - c/w Metoprolol / Furosemide Depression - c/w Sertraline BPH / Urinary retention - s/p Chronic Mcfadden catheter - Changed on 09/05/18 by Urology clinic - c/w Ciprofloxacin 500mg BID (Day #5) Hx of PVC GERD - c/w Omeprazole DVT prophylaxis - c/w Heparin Disposition: - Awaiting clinical improvement - Taper steroids - Start physical therapy VS,Fishbone, I+O VS, Fishbone, I+O Laboratory Tests 09/11/18 05:38 Red Blood Count 3.09 L, Mean Corpuscular Volume 102.9 H, Mean Corpuscular Hemoglobin 34.6 H, Mean Corpuscular Hemoglobin Concent 33.6, Red Cell Distribution Width 13.2, Neutrophils (%) (Auto) 56.4, Lymphocytes (%) (Auto) 3 5.2, Monocytes (%) (Auto) 7.4 H, Eosinophils (%) (Auto) 0.0, Basophils (%) (Auto) 0.1, Neutrophils # (Auto) 5.2, Lymphocytes # (Auto) 3.2, Monocytes # (Auto) 0.7, Eosinophils # (Auto) 0.0, Basophils # (Auto) 0.0, Calcium Level 8.1 L, Aspartate Amino Transf (AST/SGOT) 18, Alanine Aminotransferase (ALT/SGPT) 22, Alkaline Phosphatase 67, Total Bilirubin 0.3, Total Protein 6.0 L, Albumin 2.6 L Vital Signs Date Time Temp Pulse Resp B/P (MAP) Pulse Ox O2 Delivery O2 Flow Rate FiO2 09/11/18 09:12 87 138/91 09/11/18 09:00 2.0 09/11/18 06:00 97.1 18 100 Nasal Cannula I&O- Last 24 Hours up to 6 AM 09/11/18 05:59 Intake Total 2160 ml Output Total 1150 ml Balance 1010 ml BRISEIDA ALBRECHT MD Sep 11, 2018 14:34
[2018-09-11 22:00] VITALS: BP 136/80
[2018-09-12] MEDS: methylPREDNISolone INJ 125 MG/2 ML VIAL (J2930) IV SCH ×3 (05:00→20:40)
[2018-09-12 06:00] VITALS: BP 132/80
[2018-09-12] MEDS: HEPARIN SOD (PORCINE) 5000 UNITS/ML VIAL SC SCH ×3 (06:00→22:19)
[2018-09-12 06:23] LABS: BASO % 0.1 % (0.0-1.0); EOS % 0.1 % (0.0-3.0); HEMATOCRIT 32.5 % (42.0-52.0); LYMPH # 3.9 10^3/uL (1.5-4.5); LYMPH % 46.6 % (24.0-44.0); MEAN CORPUSCULAR HEMOGLOBIN 34.6 pg (27.0-33.0); MEAN CORPUSCULAR HGB CONC 33.8 g/dl (32.0-36.5); MEAN CORPUSCULAR VOLUME 102.2 fl (80.0-96.0); MONO # 0.6 10^3/uL (0.0-0.8); MONO % 7.2 % (0.0-5.0); NEUTROPHILS # 3.9 10^3/uL (1.8-7.7); NEUTROPHILS % 45.6 % (36.0-66.0); PLATELET COUNT, AUTOMATED 113 10^3/uL (150-450); RED BLOOD COUNT 3.18 10^6/uL (4.30-6.10); WHITE BLOOD COUNT 8.4 10^3/uL (4.0-10.0)
[2018-09-12 06:48] LABS: ALBUMIN 2.7 GM/DL (3.2-5.2); ALT/SGPT 19 U/L (12-78); BILIRUBIN,TOTAL 0.2 MG/DL (0.2-1.0); BLOOD UREA NITROGEN 34 MG/DL (7-18); CALCIUM LEVEL 8.3 MG/DL (8.8-10.2); CARBON DIOXIDE LEVEL 34 MEQ/L (21-32); CHLORIDE LEVEL 100 MEQ/L (98-107); GLOMERULAR FILTRATION RATE > 60.0 (>42); GLUCOSE, FASTING 125 MG/DL (70-100); MAGNESIUM LEVEL 2.2 MG/DL (1.8-2.4); SODIUM LEVEL 140 MEQ/L (136-145); TOTAL PROTEIN 6.2 GM/DL (6.4-8.2)
--- NOTE | 2018-09-12 07:42 | ECGEPIP ---
Stationary ECG Study [facility] Test Date: 2018-09-09 Pat Name: TIGIST RAY Department: Room: [place] [address] Gender: M [employer]amp Red[employer] Clerk: ROMÁN : 1940 Requested By: Fátima Marie Order Number: [id number] Reading MD: Ruben Suh Measurements Intervals [place] Rate: 90 P: IA: 0 QRS: -6 QRSD: 77 T: 88 QT: 358 QTc: 440 Interpretive Statements SINUS RHYTHM WITH OCCASIONAL ATRIAL PREMATURE COMPLEXES BASELINE ARTIFACT AFFECTS INTERPRETATION SIMILAR TO 06/25/17 Electronically Signed On 09-12-2018 7:42:22 EST by Ruben Suh
[2018-09-12] MEDS: IPRATROPIUM 0.5MG/ALBUTEROL 2.5MG INH SOL UD 3ML (DUONEB)(J7620) NEB SCH ×4 (08:18→20:00)
[2018-09-12] MEDS ORDERED: predniSONE 20 MG TAB PO SCH (09:00)
[2018-09-12] MEDS: CYANOCOBALAMIN 500 MCG TAB PO SCH (10:07)
[2018-09-12] MEDS: SENOKOT S TAB PO SCH (10:08)
[2018-09-12] MEDS: OSELTAMIVIR PHOSPHATE 75 MG CAP (TAMIFLU) PO SCH ×2 (10:08→19:18)
[2018-09-12] MEDS: OMEPRAZOLE 20 MG CAP PO SCH (10:08)
[2018-09-12] MEDS: SERTRALINE HCL 50 MG TAB PO SCH (10:08)
[2018-09-12] MEDS: FOLIC ACID 1 MG TAB PO SCH (10:08)
[2018-09-12] MEDS: THIAMINE 100 MG TAB PO SCH (10:08)
[2018-09-12] MEDS: METOPROLOL TART 12.5 MG PER 1/2 TAB PO SCH ×2 (10:09→20:42)
[2018-09-12] MEDS: LORATADINE 10 MG TAB PO SCH (10:09)
[2018-09-12] MEDS: FERROUS GLUCONATE 324 MG TAB PO SCH ×2 (10:09→20:41)
[2018-09-12] MEDS: ASPIRIN 81 MG ENTERIC TAB PO SCH (10:09)
[2018-09-12] MEDS: CIPROFLOXACIN 500 MG TAB PO SCH ×2 (10:10→20:41)
[2018-09-12] MEDS: FUROSEMIDE 40 MG TAB PO SCH (10:10)
--- NOTE | 2018-09-12 12:28 | IPNPDOC ---
Text Note Date of Service The patient was seen on 09/12/18. NOTE Subjective: Patient is a 78-year-old male with a PMHx of HTN, COPD on O2, Depression, BPH / Urinary retention (s/p Chronic Mcfadden catheter), Hx of PVC, SANA Ava who is a resident of [facility] who presented to the emergency room with complaints of shortness of breath that has been going on for approximately 7-10 days. Patient was found to have positive Influenza in the ER. There admitted to the hospitalist service for further evaluation and treatment. Patient was seen and examined at the bedside. Patient notes that his breathing is actually doing better today. She still notes a nonproductive cough. Denies any chest pain or palpitations. Denies nausea, vomiting, abdominal pain, constipation, diarrhea or discomfort with urination. Objective: Vitals (See below) General: Lying in bed, no acute distress, comfortable, AAOx3 HEENT: NC, AT CVS: RRR, +S1S2 Lungs: Fair air entry b/l, auscultation reveals an improvement in his bilateral wheezing. There does not appear to be any rhonchi or rales Abdomen: Soft, nondistended, without tenderness Extremities: Lower extremities are without any edema, - Calf tenderness Assessment and plan: Chronic hypoxic respiratory failure / Shortness of breath - Presented to the ER with complaints of shortness of breath; clinically is having improvement in his breathing with current therapy - Has been reported to use oxygen as an outpatient for COPD; however has not been compliant - Auscultation reveals improvement in wheezing - s/p leukocytosis, no lactic acidosis - Respiratory panel: + Influenza A - CXR 1/2: No acute disease. - c/w Inhaled therapy - c/w Solumedrol at current dose; will possibly reduce dose tomorrow - c/w Tamiflu (Day #4) HTN - BP well controlled - ECHO /2: Evidence of diastolic dysfunction - c/w Metoprolol / Furosemide Depression - c/w Sertraline BPH / Urinary retention - s/p Chronic Mcfadden catheter - Changed on 09/05/18 by Urology clinic Urinary tract infection - likely 2/2 Mcfadden Catheter - Urine culture 09/04: E. Coli - c/w Ciprofloxacin 500mg BID (Day #6) Hx of PVC GERD - c/w Omeprazole DVT prophylaxis - c/w Heparin Disposition: - c/w Solumedrol; will reduce dose in 24-48 hours - c/w physical therapy VS,Fishbone, I+O VS, Fishbone, I+O Laboratory Tests 09/12/18 06:07 Red Blood Count 3.18 L, Mean Corpuscular Volume 102.2 H, Mean Corpuscular Hemoglobin 34.6 H, Mean Corpuscular Hemoglobin Concent 33.8, Red Cell Distribution Width 13.0, Neutrophils (%) (Auto) 45.6, Lymphocytes (%) (Auto) 46.6 H, Monocytes (%) (Auto) 7.2 H, Eosinophils (%) (Auto) 0.1, Basophils (%) (Auto) 0.1, Neutrophils # (Auto) 3.9, Lymphocytes # (Auto) 3.9, Monocytes # (Auto) 0.6, Eosinophils # (Auto) 0.0, Basophils # (Auto) 0.0, Calcium Level 8.3 L, Aspartate Amino Transf (AST/SGOT) 14, Alanine Aminotransferase (ALT/SGPT) 19, Alkaline Phosphatase 64, Total Bilirubin 0.2, Total Protein 6.2 L, Albumin 2.7 L Vital Signs Date Time Temp Pulse Resp B/P (MAP) Pulse Ox O2 Delivery O2 Flow Rate FiO2 09/12/18 10:09 87 132/80 09/12/18 10:00 2.0 09/12/18 06:00 96.9 20 95 Nasal Cannula I&O- Last 24 Hours up to 6 AM 09/12/18 05:59 Intake Total 1498 ml Output Total 1810 ml Balance -312 ml BRISEIDA ALBRECHT MD Sep 12, 2018 12:28
[2018-09-12 14:00] VITALS: BP 139/77
[2018-09-12 22:00] VITALS: BP 165/79
[2018-09-13] MEDS: HEPARIN SOD (PORCINE) 5000 UNITS/ML VIAL SC SCH ×3 (05:38→21:28)
[2018-09-13] MEDS: methylPREDNISolone INJ 125 MG/2 ML VIAL (J2930) IV SCH ×2 (05:38→13:00)
[2018-09-13 06:00] VITALS: BP 112/86
[2018-09-13 06:16] LABS: HEMATOCRIT 32.7 % (42.0-52.0); MEAN CORPUSCULAR HEMOGLOBIN 34.4 pg (27.0-33.0); MEAN CORPUSCULAR HGB CONC 33.6 g/dl (32.0-36.5); MEAN CORPUSCULAR VOLUME 102.2 fl (80.0-96.0); PLATELET COUNT, AUTOMATED 135 10^3/uL (150-450); WHITE BLOOD COUNT 10.4 10^3/uL (4.0-10.0)
[2018-09-13 06:38] LABS: ALBUMIN 2.7 GM/DL (3.2-5.2); ALT/SGPT 18 U/L (12-78); BILIRUBIN,TOTAL 0.3 MG/DL (0.2-1.0); BLOOD UREA NITROGEN 33 MG/DL (7-18); CALCIUM LEVEL 8.4 MG/DL (8.8-10.2); CARBON DIOXIDE LEVEL 34 MEQ/L (21-32); CHLORIDE LEVEL 99 MEQ/L (98-107); CREATININE FOR GFR 0.96 MG/DL (0.70-1.30); GLOMERULAR FILTRATION RATE > 60.0 (>42); GLUCOSE, FASTING 116 MG/DL (70-100); MAGNESIUM LEVEL 2.2 MG/DL (1.8-2.4); POTASSIUM SERUM 3.9 MEQ/L (3.5-5.1); SODIUM LEVEL 137 MEQ/L (136-145)
[2018-09-13 06:45] LABS: ATYPICAL LYMPH 4 % (0-5); LYMPHOCYTES 45 % (16-52); MONOCYTES 1 % (0-8); NEUTROPHILS 50 % (35-75); PLATELET ESTIMATE DECREASED (NORMAL)
[2018-09-13 06:46] LABS: SMUDGE CELLS 2+
[2018-09-13] MEDS: ASPIRIN 81 MG ENTERIC TAB PO SCH (08:25)
[2018-09-13] MEDS: LORATADINE 10 MG TAB PO SCH (08:26)
[2018-09-13] MEDS: OMEPRAZOLE 20 MG CAP PO SCH (08:26)
[2018-09-13] MEDS: FERROUS GLUCONATE 324 MG TAB PO SCH ×2 (08:26→21:28)
[2018-09-13] MEDS: METOPROLOL TART 12.5 MG PER 1/2 TAB PO SCH ×2 (08:26→21:28)
[2018-09-13] MEDS: SERTRALINE HCL 50 MG TAB PO SCH (08:27)
[2018-09-13] MEDS: OSELTAMIVIR PHOSPHATE 75 MG CAP (TAMIFLU) PO SCH ×2 (08:27→21:27)
[2018-09-13] MEDS: SENOKOT S TAB PO SCH (08:27)
[2018-09-13] MEDS: THIAMINE 100 MG TAB PO SCH (08:27)
[2018-09-13] MEDS: CIPROFLOXACIN 500 MG TAB PO SCH ×2 (08:27→21:27)
[2018-09-13] MEDS: CYANOCOBALAMIN 500 MCG TAB PO SCH (08:27)
[2018-09-13] MEDS: FOLIC ACID 1 MG TAB PO SCH (08:27)
[2018-09-13] MEDS: FUROSEMIDE 40 MG TAB PO SCH (08:28)
[2018-09-13] MEDS: IPRATROPIUM 0.5MG/ALBUTEROL 2.5MG INH SOL UD 3ML (DUONEB)(J7620) NEB SCH ×4 (08:53→20:33)
--- NOTE | 2018-09-13 13:26 | IPNPDOC ---
Text Note Date of Service The patient was seen on 09/13/18. NOTE Subjective: Patient is a 78-year-old male with a PMHx of HTN, COPD on O2, Depression, BPH / Urinary retention (s/p Chronic Mcfadden catheter), Hx of PVC, SANA D who is a resident of [facility] who presented to the emergency room with complaints of shortness of breath that has been going on for approximately 7-10 days. Patient was found to have positive Influenza in the ER. There admitted to the hospitalist service for further evaluation and treatment. Patient was seen and examined at the bedside. Patient notes his breathing is somewhat doing better. Denies any chest pain or palpitations. Denies any nausea, vomiting, abdominal pain, diarrhea, constipation, or urinary discomfort. Objective: Vitals (See below) General: Lying in bed, no acute distress, comfortable, AAOx3 HEENT: NC, AT CVS: RRR, +S1S2 Lungs: Fair air entry b/l, still appears to be mild wheezing bilaterally. No appreciable rhonchi, rales Abdomen: Soft, ND without tenderness Extremities: LE do not reveal any edema, - Calf tenderness Assessment and plan: Chronic hypoxic respiratory failure / Shortness of breath - Continues to have some improvement in breathing; - Has been reported to use oxygen as an outpatient for COPD; however has not been compliant - Physical still reveals mild expiratory wheezing - s/p leukocytosis, no lactic acidosis - Respiratory panel: + Influenza A - CXR /2: No acute disease. - c/w Inhaled therapy - c/w Solumedrol at current dose; dose reduced today - c/w Tamiflu (Day #5) HTN - BP well controlled - ECHO 2: Evidence of diastolic dysfunction - c/w Metoprolol / Furosemide Depression - c/w Sertraline BPH / Urinary retention - s/p Chronic Mcfadden catheter - Changed on 09/05/18 by Urology clinic Urinary tract infection - likely 2/2 Mcfadden Catheter - Urine culture 09/04: E. Coli - c/w Ciprofloxacin 500mg BID (Day #7) Hx of PVC GERD - c/w Omeprazole DVT prophylaxis - c/w Heparin Disposition: - c/w Solumedrol; dose reduced today - c/w physical therapy VS,Fishbone, I+O VS, Fishbone, I+O Laboratory Tests 09/13/18 05:44 Red Blood Count 3.20 L, Mean Corpuscular Volume 102.2 H, Mean Corpuscular Hemoglobin 34.4 H, Mean Corpuscular Hemoglobin Concent 33.6, Red Cell Distribution Width 12.9, Lymphocytes # (Auto) , Calcium Level 8.4 L, Aspartate Amino Transf (AST/SGOT) 12, Alanine Aminotransferase (ALT/SGPT) 18, Alkaline Phosphatase 61, Total Bilirubin 0.3, Total Protein 6.0 L, Albumin 2.7 L Vital Signs Date Time Temp Pulse Resp B/P (MAP) Pulse Ox O2 Delivery O2 Flow Rate FiO2 09/13/18 09:00 2.0 09/13/18 08:26 76 112/86 09/13/18 06:00 97.2 19 93 Nasal Cannula l I&O- Last 24 Hours up to 6 AM 09/13/18 05:59 Intake Total 1200 ml Output Total 1050 ml Balance 150 ml BRISEIDA ALBRECHT MD Sep 13, 2018 13:26
[2018-09-13 14:00] VITALS: BP 133/80
[2018-09-13] MEDS: methylPREDNISolone INJ 40 MG/1 ML VIAL (J2920) IV SCH (21:28)
[2018-09-13 22:00] VITALS: BP 130/70
[2018-09-14 05:57] LABS: HEMATOCRIT 33.6 % (42.0-52.0); HEMOGLOBIN 11.4 g/dl (13.5-17.5); MEAN CORPUSCULAR HEMOGLOBIN 35.3 pg (27.0-33.0); MEAN CORPUSCULAR HGB CONC 33.9 g/dl (32.0-36.5); PLATELET COUNT, AUTOMATED 133 10^3/uL (150-450); RED BLOOD COUNT 3.23 10^6/uL (4.30-6.10)
[2018-09-14 06:00] VITALS: BP 130/84
[2018-09-14 06:01] LABS: WHITE BLOOD COUNT 13.9 10^3/uL (4.0-10.0)
[2018-09-14] MEDS: HEPARIN SOD (PORCINE) 5000 UNITS/ML VIAL SC SCH ×3 (06:06→20:51)
[2018-09-14] MEDS: methylPREDNISolone INJ 40 MG/1 ML VIAL (J2920) IV SCH ×2 (06:06→13:05)
[2018-09-14 06:14] LABS: ALBUMIN 2.7 GM/DL (3.2-5.2); ALT/SGPT 27 U/L (12-78); BILIRUBIN,TOTAL 0.4 MG/DL (0.2-1.0); BLOOD UREA NITROGEN 37 MG/DL (7-18); CALCIUM LEVEL 8.4 MG/DL (8.8-10.2); CARBON DIOXIDE LEVEL 32 MEQ/L (21-32); CHLORIDE LEVEL 96 MEQ/L (98-107); CREATININE FOR GFR 1.06 MG/DL (0.70-1.30); GLOMERULAR FILTRATION RATE > 60.0 (>42); GLUCOSE, FASTING 104 MG/DL (70-100); POTASSIUM SERUM 3.9 MEQ/L (3.5-5.1); SODIUM LEVEL 135 MEQ/L (136-145); TOTAL PROTEIN 5.9 GM/DL (6.4-8.2)
[2018-09-14 06:20] LABS: ATYPICAL LYMPH 3 % (0-5); LYMPHOCYTES 48 % (16-52); MONOCYTES 7 % (0-8); NEUTROPHILS 42 % (35-75); PLATELET ESTIMATE NORMAL (NORMAL)
[2018-09-14 06:22] LABS: SMUDGE CELLS 1+
[2018-09-14] MEDS: IPRATROPIUM 0.5MG/ALBUTEROL 2.5MG INH SOL UD 3ML (DUONEB)(J7620) NEB SCH ×4 (08:16→20:20)
[2018-09-14] MEDS: FOLIC ACID 1 MG TAB PO SCH (08:24)
[2018-09-14] MEDS: FUROSEMIDE 40 MG TAB PO SCH (08:24)
[2018-09-14] MEDS: OSELTAMIVIR PHOSPHATE 75 MG CAP (TAMIFLU) PO SCH (08:24)
[2018-09-14] MEDS: FERROUS GLUCONATE 324 MG TAB PO SCH ×2 (08:24→20:50)
[2018-09-14] MEDS: SERTRALINE HCL 50 MG TAB PO SCH (08:24)
[2018-09-14] MEDS: SENOKOT S TAB PO SCH (08:24)
[2018-09-14] MEDS: THIAMINE 100 MG TAB PO SCH (08:24)
[2018-09-14] MEDS: ASPIRIN 81 MG ENTERIC TAB PO SCH (08:24)
[2018-09-14] MEDS: CIPROFLOXACIN 500 MG TAB PO SCH (08:24)
[2018-09-14] MEDS: OMEPRAZOLE 20 MG CAP PO SCH (08:24)
[2018-09-14] MEDS: LORATADINE 10 MG TAB PO SCH (08:24)
[2018-09-14] MEDS: METOPROLOL TART 12.5 MG PER 1/2 TAB PO SCH ×2 (08:25→20:50)
[2018-09-14] MEDS: CYANOCOBALAMIN 500 MCG TAB PO SCH (08:25)
--- NOTE | 2018-09-14 14:07 | IPNPDOC ---
Text Note Date of Service The patient was seen on 09/14/18. NOTE Subjective: Patient is a 78-year-old male with a PMHx of HTN, COPD on O2, Depression, BPH / Urinary retention (s/p Chronic Mcfadden catheter), Hx of PVC, SANA D who is a resident of [facility] who presented to the emergency room with complaints of shortness of breath that has been going on for approximately 7-10 days. Patient was found to have positive Influenza in the ER. There admitted to the hospitalist service for further evaluation and treatment. Patient was seen and examined at the bedside. Patient's breathing is doing better. Denies any nausea, vomiting, abdominal pain, constipation, diarrhea. Mcfadden catheter in place. Objective: Vitals (See below) General: Lying in bed, no acute distress, comfortable, AAOx3 HEENT: NC, AT CVS: RRR, +S1S2 Lungs: Fair air entry b/l, improvement in wheezing, no rhonchi / rales Abdomen: Soft, non-distended and non-tender Extremities: LE without edema, - Calf tenderness Assessment and plan: Chronic hypoxic respiratory failure / Shortness of breath - Breathing continues to improve - Has been reported to use oxygen as an outpatient for COPD; however has not been compliant - Physical still reveals mild expiratory wheezing - s/p leukocytosis, no lactic acidosis - Respiratory panel: + Influenza A - CXR 09/09: No acute disease. - c/w Inhaled therapy - c/w Solumedrol at current dose; dose reduced frequency today - s/p Tamiflu (5 day course) HTN - BP well controlled - ECHO 09/09: Evidence of diastolic dysfunction - c/w Metoprolol / Furosemide Depression - c/w Sertraline BPH / Urinary retention - s/p Chronic Mcfadden catheter - Changed on 09/05/18 by Urology clinic Urinary tract infection - likely 2/2 Mcfadden Catheter - Urine culture 09/04: E. Coli - s/p Ciprofloxacin 500mg BID (Completed 7 day course) Hx of PVC GERD - c/w Omeprazole DVT prophylaxis - c/w Heparin Disposition: - c/w Corticosteroids; will consider starting prednisone in next 24-48 hours - c/w physical therapy VS,Fishbone, I+O VS, Fishbone, I+O Laboratory Tests 09/14/18 05:25 Red Blood Count 3.23 L, Mean Corpuscular Volume 104.0 H, Mean Corpuscular Hemoglobin 35.3 H, Mean Corpuscular Hemoglobin Concent 33.9, Red Cell Distribution Width 13.0, Lymphocytes # (Auto) , Calcium Level 8.4 L, Aspartate Amino Transf (AST/SGOT) 22, Alanine Aminotransferase (ALT/SGPT) 27, Alkaline Phosphatase 62, Total Bilirubin 0.4, Total Protein 5.9 L, Albumin 2.7 L Vital Signs Date Time Temp Pulse Resp B/P (MAP) Pulse Ox O2 Delivery O2 Flow Rate FiO2 09/14/18 08:25 84 132/77 09/14/18 08:15 2.0 09/14/18 06:00 97.3 19 96 Nasal Cannula I&O- Last 24 Hours up to 6 AM 09/14/18 06:00 Intake Total 1200 ml Output Total 1700 ml Balance -500 ml BRISEIDA ALBRECHT MD Sep 14, 2018 14:07
[2018-09-14 22:00] VITALS: BP 126/77
[2018-09-15] MEDS: methylPREDNISolone INJ 40 MG/1 ML VIAL (J2920) IV SCH ×2 (01:11→13:10)
[2018-09-15] MEDS: IPRATROPIUM 0.5MG/ALBUTEROL 2.5MG INH SOL UD 3ML (DUONEB)(J7620) NEB PRN ×2 (01:28→04:25)
[2018-09-15] MEDS: HEPARIN SOD (PORCINE) 5000 UNITS/ML VIAL SC SCH ×3 (05:46→21:36)
[2018-09-15 06:00] VITALS: BP 112/59
[2018-09-15 06:07] LABS: HEMATOCRIT 33.7 % (42.0-52.0); HEMOGLOBIN 11.5 g/dl (13.5-17.5); MEAN CORPUSCULAR HEMOGLOBIN 35.1 pg (27.0-33.0); MEAN CORPUSCULAR HGB CONC 34.1 g/dl (32.0-36.5); MEAN CORPUSCULAR VOLUME 102.7 fl (80.0-96.0); PLATELET COUNT, AUTOMATED 138 10^3/uL (150-450); RED BLOOD COUNT 3.28 10^6/uL (4.30-6.10)
[2018-09-15 06:08] LABS: WHITE BLOOD COUNT 15.3 10^3/uL (4.0-10.0)
[2018-09-15 06:30] LABS: ALBUMIN 2.9 GM/DL (3.2-5.2); ALT/SGPT 42 U/L (12-78); BILIRUBIN,TOTAL 0.3 MG/DL (0.2-1.0); BLOOD UREA NITROGEN 36 MG/DL (7-18); CALCIUM LEVEL 8.6 MG/DL (8.8-10.2); CARBON DIOXIDE LEVEL 32 MEQ/L (21-32); CHLORIDE LEVEL 96 MEQ/L (98-107); GLOMERULAR FILTRATION RATE > 60.0 (>42); GLUCOSE, FASTING 128 MG/DL (70-100); MAGNESIUM LEVEL 2.1 MG/DL (1.8-2.4); POTASSIUM SERUM 3.8 MEQ/L (3.5-5.1); SODIUM LEVEL 134 MEQ/L (136-145)
[2018-09-15 06:43] LABS: LYMPHOCYTES 57 % (16-52); MONOCYTES 2 % (0-8); NEUTROPHILS 41 % (35-75); PLATELET ESTIMATE NORMAL (NORMAL)
[2018-09-15] MEDS: IPRATROPIUM 0.5MG/ALBUTEROL 2.5MG INH SOL UD 3ML (DUONEB)(J7620) NEB SCH ×4 (07:43→23:40)
[2018-09-15] MEDS: FERROUS GLUCONATE 324 MG TAB PO SCH ×2 (08:59→21:36)
[2018-09-15] MEDS: SERTRALINE HCL 50 MG TAB PO SCH (08:59)
[2018-09-15] MEDS: THIAMINE 100 MG TAB PO SCH (08:59)
[2018-09-15] MEDS: FOLIC ACID 1 MG TAB PO SCH (08:59)
[2018-09-15] MEDS: LORATADINE 10 MG TAB PO SCH (09:00)
[2018-09-15] MEDS: CYANOCOBALAMIN 500 MCG TAB PO SCH (09:00)
[2018-09-15] MEDS: FUROSEMIDE 40 MG TAB PO SCH (09:00)
[2018-09-15] MEDS: ASPIRIN 81 MG ENTERIC TAB PO SCH (09:01)
[2018-09-15] MEDS: SENOKOT S TAB PO SCH (09:01)
[2018-09-15] MEDS: OMEPRAZOLE 20 MG CAP PO SCH (09:01)
[2018-09-15] MEDS: METOPROLOL TART 12.5 MG PER 1/2 TAB PO SCH ×2 (09:01→21:36)
[2018-09-15 14:00] VITALS: BP 132/80
--- NOTE | 2018-09-15 15:20 | IPNPDOC ---
Date Seen The patient was seen on 09/15/18. Progress Note Subjective: Patient tells me that he is breathing more easily today he is more comfortably he denies any specific complaints at this time other than feeling fatigued Objective: Vitals (See below) General: Lying in bed, no acute distress, comfortable, AAOx3 HEENT: NC, AT CVS: RRR, +S1S2 Lungs: Fair air entry b/l, no rhonchi / rales Abdomen: Soft, non-distended and non-tender Extremities: LE without edema, - Calf tenderness, urinary catheter in place Assessment and plan: Chronic hypoxic respiratory failure / Shortness of breath. - Breathing continues to improve he tells me he is approaching his baseline today he supposed to be using O2 at home but does not use this regularly at this time he is using it. He did decompensate rather quickly when I trial of by mouth prednisone was attempted earlier and as such I'll continue him on IV Solu-Medrol today and transition to by mouth prednisone tomorrow with the hopes of disp osition planning. Likely secondary to influenza he has completed a course of Tamiflu. Continue to work with physical therapy and monitor ambulate and O2 sats HTN - BP well controlled - ECHO 09/09: Evidence of diastolic dysfunction - c/w Metoprolol / Furosemide Depression - c/w Sertraline BPH / Urinary retention - s/p Chronic Mcfadden catheter - Changed on 09/05/18 by Urology clinic Urinary tract infection - likely 2/2 Mcfadden Catheter - Urine culture 09/04: E. Coli - s/p Ciprofloxacin 500mg BID (Completed 7 day course) GERD - c/w Omeprazole DVT prophylaxis - c/w Heparin Disposition: Pending PT clearance and weaning of steroids with maintaining of O2 saturations VS, I&O, 24H, Fishbone Vital Signs/I&O Vital Signs Date Time Temp Pulse Resp B/P (MAP) Pulse Ox O2 Delivery O2 Flow Rate FiO2 09/15/18 11:42 2.0 09/15/18 09:01 76 128/88 09/15/18 06:00 97.9 19 93 Nasal Cannula I&O- Last 24 Hours up to 6 AM 09/15/18 06:00 Intake Total 2120 ml Output Total 2835 ml Balance -715 ml Laboratory Data 24H LABS Laboratory Tests 2 09/15/18 05:40: White Blood Count 15.3H, Red Blood Count 3.28L, Hemoglobin 11.5L, Hematocrit 33.7L, Mean Corpuscular Volume 102.7H, Mean Corpuscular Hemoglobin 35.1H, Mean Corpuscular Hemoglobin Concent 34.1, Red Cell Distribution Width 13.0, Platelet Count 138L, Lymphocytes # (Auto) , Nucleated Red Blood Cells % (auto) 0.0, Neutrophils 41, Lymphocytes (Manual) 57H, Monocytes (Manual) 2, Platelet Estimate NORMAL, Red Blood Cell Morphology NORMAL, Anion Gap 6L, Glomerular Filtration Rate > 60.0, Blood Urea Nitrogen 36H, Creatinine 1.10, Sodium Level 134L, Potassium Level 3.8, Chloride Level 96L, Carbon Dioxide Level 32, Calcium Level 8.6L, Aspartate Amino Transf (AST/SGOT) 31, Alanine Aminotransferase (ALT/SGPT) 42, Alkaline Phosphatase 60, Total Bilirubin 0.3, Total Protein 6.0L, Albumin 2.9L, Magnesium Level 2.1, Albumin/Globulin Ratio 0.94L CBC/BMP Laboratory Tests 09/15/18 05:40 Red Blood Count 3.28 L, Mean Corpuscular Volume 102.7 H, Mean Corpuscular Hemoglobin 35.1 H, Mean Corpuscular Hemoglobin Concent 34.1, Red Cell Distributi on Width 13.0, Lymphocytes # (Auto) , Calcium Level 8.6 L, Aspartate Amino Transf (AST/SGOT) 31, Alanine Aminotransferase (ALT/SGPT) 42, Alkaline Phosphatase 60, Total Bilirubin 0.3, Total Protein 6.0 L, Albumin 2.9 L Microbiology Microbiology 09/09/18 Blood Culture - Final, Complete NO GROWTH AFTER 5 DAYS 09/09/18 Blood Culture - Final, Complete NO GROWTH AFTER 5 DAYS 09/09/18 Respiratory Virus Panel (PCR) ([facility]) - Final, Complete Influenza A H1-2009 ANDERSON KELLEY MD Sep 15, 2018 15:20
[2018-09-15 22:00] VITALS: BP 129/77
[2018-09-16] MEDS: methylPREDNISolone INJ 40 MG/1 ML VIAL (J2920) IV SCH (00:09)
[2018-09-16] MEDS: HEPARIN SOD (PORCINE) 5000 UNITS/ML VIAL SC SCH ×3 (05:07→21:33)
[2018-09-16 06:00] VITALS: BP 129/79
[2018-09-16 06:29] LABS: HEMATOCRIT 34.2 % (42.0-52.0); HEMOGLOBIN 11.6 g/dl (13.5-17.5); MEAN CORPUSCULAR HEMOGLOBIN 34.5 pg (27.0-33.0); MEAN CORPUSCULAR HGB CONC 33.9 g/dl (32.0-36.5); MEAN CORPUSCULAR VOLUME 101.8 fl (80.0-96.0); PLATELET COUNT, AUTOMATED 151 10^3/uL (150-450); RED BLOOD COUNT 3.36 10^6/uL (4.30-6.10)
[2018-09-16 06:49] LABS: WHITE BLOOD COUNT 15.8 10^3/uL (4.0-10.0)
[2018-09-16 06:53] LABS: ALBUMIN 2.8 GM/DL (3.2-5.2); ALT/SGPT 51 U/L (12-78); BILIRUBIN,TOTAL 0.3 MG/DL (0.2-1.0); BLOOD UREA NITROGEN 37 MG/DL (7-18); CALCIUM LEVEL 8.6 MG/DL (8.8-10.2); CARBON DIOXIDE LEVEL 34 MEQ/L (21-32); CHLORIDE LEVEL 98 MEQ/L (98-107); GLOMERULAR FILTRATION RATE > 60.0 (>42); GLUCOSE, FASTING 126 MG/DL (70-100); MAGNESIUM LEVEL 2.3 MG/DL (1.8-2.4); POTASSIUM SERUM 4.1 MEQ/L (3.5-5.1); SODIUM LEVEL 136 MEQ/L (136-145); TOTAL PROTEIN 5.9 GM/DL (6.4-8.2)
[2018-09-16] MEDS: IPRATROPIUM 0.5MG/ALBUTEROL 2.5MG INH SOL UD 3ML (DUONEB)(J7620) NEB SCH ×4 (07:14→20:30)
[2018-09-16 07:37] LABS: ATYPICAL LYMPH 2 % (0-5); LYMPHOCYTES 57 % (16-52); MONOCYTES 2 % (0-8); NEUTROPHILS 39 % (35-75)
[2018-09-16 07:38] LABS: PLATELET ESTIMATE NORMAL (NORMAL); SMUDGE CELLS 2+
[2018-09-16] MEDS: SENOKOT S TAB PO SCH (08:45)
[2018-09-16] MEDS: METOPROLOL TART 12.5 MG PER 1/2 TAB PO SCH ×3 (08:45→22:06)
[2018-09-16] MEDS: SERTRALINE HCL 50 MG TAB PO SCH (08:46)
[2018-09-16] MEDS: THIAMINE 100 MG TAB PO SCH (08:46)
[2018-09-16] MEDS: LORATADINE 10 MG TAB PO SCH (08:46)
[2018-09-16] MEDS: CYANOCOBALAMIN 500 MCG TAB PO SCH (08:47)
[2018-09-16] MEDS: FUROSEMIDE 40 MG TAB PO SCH (08:47)
[2018-09-16] MEDS: OMEPRAZOLE 20 MG CAP PO SCH (08:47)
[2018-09-16] MEDS: ASPIRIN 81 MG ENTERIC TAB PO SCH (08:47)
[2018-09-16] MEDS: FERROUS GLUCONATE 324 MG TAB PO SCH ×2 (08:47→21:33)
[2018-09-16] MEDS: FOLIC ACID 1 MG TAB PO SCH (08:48)
--- NOTE | 2018-09-16 11:30 | DS.PDOC ---
Discharge Summary General Date of Admission Sep 09, 2018 at 14:29 Date of Discharge Anticipated for 09/17/18 Discharge Summary PROCEDURES PERFORMED DURING STAY: [None]. DISCHARGE DIAGNOSES: 1. Influenza A 2. chronic hypoxic respiratory failure 3. generalized deconditioning Secondary Diagnoses: 1. HTN 2. COPD 3. chronic hypoxic respiratory failure 4. BPH/urinary retention - chronic downey catheter 5. GERD COMPLICATIONS/CHIEF COMPLAINT: Copd Exacerbation Influenza A. HISTORY OF PRESENT ILLNESS: Patient is a 78-year-old male with a PMHx of HTN, COPD on O2, Depression, BPH / Urinary retention (s/p Chronic Downey catheter), Hx of PVC, GERD who is a resident of [facility] who presented to the emergency room with complaints of progressively worsening shortness of breath that has been going on for approximately 7-10 days. Patient does have a chronic Downey catheter in place. He is unsure of when this was last changed. He does follow with Dr. Guerra as an outpatient. Patient did report two-pillow orthopnea but denied any nighttime awakenings because of shortness of breath. He denied any chest pain or palpitations, cough, fevers or chills. Patient denied any lower extremity edema. As per ER staff, patient has been reported to be noncompliant with his oxygen use as an outpatient. HOSPITAL COURSE: Patient admitted for further evaluation and treatment. Respiratory was positive for influenza A. He states he did receive a flu vaccine this year. He was started on Tamiflu and IV steroid therapy. He was found to have mild leukocytosis, with no lactic acidosis. He was already receiving Cipro for chronic urinary tract infections. An echocardiogram was obtained which was a technically limited study due to a poor acoustic window, but showed and estimated LVEF of 60%. An attempt to wean from IV to PO steroids was initially unsuccessful, but will be attempted again. He was not particularly ambulatory during his hospital stay, which is also being re-evaluated. DISCHARGE MEDICATIONS: Please see below. ALLERGIES: Please see below. PHYSICAL EXAMINATION ON DISCHARGE: VITAL SIGNS: Please see below. GENERAL: NAD, lying comfortably in bed HEENT: NC/AT, EOMI, PERRL CARDIOVASCULAR EXAMINATION: RRR, +S1S2 RESPIRATORY EXAMINATION: mild VISH wheezing ABDOMINAL EXAMINATION: obese, soft, NT, ND, +BS LABORATORY DATA: Please see below. PROGNOSIS: Guarded given non-compliance and medical history. ACTIVITY: [As tolerated]. DIET: 2 gram sodium/COPD DISCHARGE PLAN: Discharge home, with services if needed. DISCHARGE INSTRUCTIONS: 1. Follow up PCP in 3-5 days. 2. Medications as directed. 3. Oxygen as directed. 4. Urology as scheduled DISCHARGE CONDITION: [Stable]. TIME SPENT ON DISCHARGE: Greater than 30 minutes. Vital Signs/I&Os Vital Signs Date Time Temp Pulse Resp B/P (MAP) Pulse Ox O2 Delivery O2 Flow Rate FiO2 09/16/18 08:45 63 129/79 09/16/18 07:15 Nasal Cannula 2.0 09/16/18 06:00 97.2 21 98 I&O- Last 24 Hours up to 6 AM 09/16/18 06:00 Intake Total 120 ml Output Total 2100 ml Balance -1980 ml Laboratory Data Labs 24H Laboratory Tests 2 09/16/18 06:09: White Blood Count 15.8H, Red Blood Count 3.36L, Hemoglobin 11.6L, Hematocrit 34.2L, Mean Corpuscular Volume 101.8H, Mean Corpuscular Hemoglobin 34.5H, Mean Corpuscular Hemoglobin Concent 33.9, Red Cell Distribution Width 13.0, Platelet Count 151, Lymphocytes # (Auto) , Nucleated Red Blood Cells % (auto) 0.1H, Neutrophils 39, Lymphocytes (Manual) 57H, Monocytes (Manual) 2, Atypical Lymphocytes 2, Smudge Cells 2+, Platelet Estimate NORMAL, Anion Gap 4L, Glome rular Filtration Rate > 60.0, Blood Urea Nitrogen 37H, Creatinine 1.00, Sodium Level 136, Potassium Level 4.1, Chloride Level 98, Carbon Dioxide Level 34H, Calcium Level 8.6L, Aspartate Amino Transf (AST/SGOT) 31, Alanine Aminotransferase (ALT/SGPT) 51, Alkaline Phosphatase 56, Total Bilirubin 0.3, Total Protein 5.9L, Albumin 2.8L, Magnesium Level 2.3, Albumin/Globulin Ratio 0.90L CBC/BMP Laboratory Tests 09/16/18 06:09 Red Blood Count 3.36 L, Mean Corpuscular Volume 101.8 H, Mean Corpuscular Hemoglobin 34.5 H, Mean Corpuscular Hemoglobin Concent 33.9, Red Cell Distribution Width 13.0, Lymphocytes # (Auto) , Calcium Level 8.6 L, Aspartate Amino Transf (AST/SGOT) 31, Alanine Aminotransferase (ALT/SGPT) 51, Alkaline Phosphatase 56, Total Bilirubin 0.3, Total Protein 5.9 L, Albumin 2.8 L Microbiology Microbiology 09/09/18 Blood Culture - Final, Complete NO GROWTH AFTER 5 DAYS 09/09/18 Blood Culture - Final, Complete NO GROWTH AFTER 5 DAYS 09/09/18 Respiratory Virus Panel (PCR) (LIZA) - Final, Complete Influenza A H1-2009 Discharge Medications Scheduled Albuterol/Ipratropium (Ipratropium [place]/Albut 0.5-2.5 (3) mg/3Ml) 1 Elmo Elmo, 1 ELMO INH TID, (Reported) 0600/1400/2000 Aspirin (Aspirin EC) 81 Mg Tab, 81 MG PO DAILY, (Reported) Ciprofloxacin HCl (Cipro) 500 Mg Tab, 500 MG PO BID, (Reported) FOR 11 DAYS. FINISH ON 09/15/18. Cyanocobalamin (Vitamin B-12 Cr) 1,000 Mcg Tab, 1,000 MCG PO DAILY, (Reported) Docusate Sod/Senna (Senokot S 8.6-50 mg) 1 Tab Tab, 1 TAB PO DAILY, (Reported) Docusate Sodium (Colace) 100 Mg Cap, 100 MG PO BID, (Reported) Ferrous Gluconate (Ferrous Gluconate) 324 Mg Tab, 324 MG PO BID, (Reported) Fluticasone/Vilanterol (Breo Ellipta 100-25 Mcg/INH) 1 Inh Inh, 1 PUFF INH DAILY, (Reported) Folic Acid (Folic Acid) 1 Mg Tab, 1 MG PO DAILY, (Reported) Furosemide (Lasix) 40 Mg Tab, 40 MG PO DAILY, (Reported) Loratadine (Claritin) 10 Mg Cap, 10 MG PO DAILY, (Reported) Metoprolol Tartrate (Metoprolol Tartrate) 25 Mg Tab, 12.5 MG PO BID, (Reported) Omeprazole (Omeprazole) 20 Mg Cap, 20 MG PO DAILY, (Reported) Prednisone (Prednisone) 10 Mg Tab, 10 MG PO DAILY, (Reported) Sertraline HCl (Sertraline HCl) 100 Mg Tab, 150 MG PO DAILY, (Reported) Thiamine HCl (Thiamine HCl) 100 Mg Tab, 100 MG PO DAILY, (Reported) Scheduled PRN Acetaminophen (Tylenol) 325 Mg Tab, 650 MG PO Q4H PRN for PAIN, (Reported) Acetaminophen/Hydrocodone (Hydrocodone/Acetaminophen 5-325 mg) 1 Tab Tab, 1 TAB PO Q6H PRN for PAIN, (Reported) Albuterol Sulfate (Albuterol Sulfate) 2.5 Mg/3 Ml Nebu, 2.5 MG INH Q2HP PRN for SOB/WHEEZING, (Reported) Albuterol Sulfate (Ventolin Hfa) 108 Mcg/Act Aer, 2 PUFFS INH Q6H PRN for SHORTNESS OF BREATH, (Reported) Loperamide HCl (Loperamide HCl) 2 Mg Cap, 2 MG PO for DIARRHEA, (Reported) Allergies Coded Allergies: No Known Allergies (Verified , 03/05/18) SARAH CUMMINS MD Sep 16, 2018 11:30
[2018-09-16] MEDS: predniSONE 20 MG TAB PO SCH (12:28)
[2018-09-16 14:00] VITALS: BP_SYST 110; BP_SYST 124; BP_DIAS 74; BP_DIAS 80
[2018-09-16 22:00] VITALS: BP 141/81
[2018-09-17] MEDS: HEPARIN SOD (PORCINE) 5000 UNITS/ML VIAL SC SCH ×3 (06:00→22:58)
[2018-09-17 06:38] LABS: HEMATOCRIT 34.3 % (42.0-52.0); HEMOGLOBIN 11.9 g/dl (13.5-17.5); MEAN CORPUSCULAR HEMOGLOBIN 35.2 pg (27.0-33.0); MEAN CORPUSCULAR HGB CONC 34.7 g/dl (32.0-36.5); MEAN CORPUSCULAR VOLUME 101.5 fl (80.0-96.0); PLATELET COUNT, AUTOMATED 160 10^3/uL (150-450); RED BLOOD COUNT 3.38 10^6/uL (4.30-6.10)
[2018-09-17 07:06] LABS: WHITE BLOOD COUNT 20.2 10^3/uL (4.0-10.0)
[2018-09-17] MEDS: IPRATROPIUM 0.5MG/ALBUTEROL 2.5MG INH SOL UD 3ML (DUONEB)(J7620) NEB SCH ×4 (07:37→21:24)
[2018-09-17 07:43] LABS: ATYPICAL LYMPH 4 % (0-5); LYMPHOCYTES 56 % (16-52); MONOCYTES 8 % (0-8); NEUTROPHILS 32 % (35-75); PLATELET ESTIMATE NORMAL (NORMAL); SMUDGE CELLS 3+
[2018-09-17] MEDS: FOLIC ACID 1 MG TAB PO SCH (08:51)
[2018-09-17] MEDS: SENOKOT S TAB PO SCH (08:51)
[2018-09-17] MEDS: ASPIRIN 81 MG ENTERIC TAB PO SCH (08:51)
[2018-09-17] MEDS: FERROUS GLUCONATE 324 MG TAB PO SCH ×2 (08:51→20:34)
[2018-09-17] MEDS: THIAMINE 100 MG TAB PO SCH (08:51)
[2018-09-17] MEDS: predniSONE 20 MG TAB PO SCH (08:51)
[2018-09-17] MEDS: LORATADINE 10 MG TAB PO SCH (08:51)
[2018-09-17] MEDS: FUROSEMIDE 40 MG TAB PO SCH (08:52)
[2018-09-17] MEDS: CYANOCOBALAMIN 500 MCG TAB PO SCH (08:52)
[2018-09-17] MEDS: SERTRALINE HCL 50 MG TAB PO SCH (08:52)
[2018-09-17] MEDS: OMEPRAZOLE 20 MG CAP PO SCH (08:52)
[2018-09-17] MEDS: METOPROLOL TART 12.5 MG PER 1/2 TAB PO SCH ×2 (08:56→20:34)
--- NOTE | 2018-09-17 13:18 | IPNPDOC ---
Text Note Date of Service The patient was seen on 09/17/18. NOTE Subjective: Patient seen and examined at bedside. Admits to non-productive cough today. Denies any changes with his breathing. He has no specific complaints, but is somewhat reluctant to answer questions. Objective: General: NAD, lying comfortably in bed, somewhat disheveled HEENT: NC, AT, EOMI CVS: RRR, +S1S2 Lungs: diminished breath sounds, diffuse wheezes Abdomen: soft, obese, non-distended and non-tender Extremities: no edema Assessment/Plan: #Chronic hypoxic respiratory failure / SOB - respiratory status somewhat worsened today - transitioned to PO prednisone yes terday - CXR pending - added IS/acapella - if no further improvements consider resuming IV steroid therapy #Influenza - completed Tamiflu #HTN - BP well controlled - ECHO 09/09: Evidence of diastolic dysfunction - c/w Metoprolol / Furosemide #EtOH abuse - continue folic acid/thiamine #Depression - c/w Sertraline #BPH / Urinary retention - s/p Chronic Mcfadden catheter - Changed on 09/05/18 by Urology clinic #Urinary tract infection/likely CAUTI - UCx 09/04 = E. Coli - s/p Ciprofloxacin 500mg BID (Completed 7 day course) #GERD - c/w Omeprazole #DVT prophylaxis - c/w Heparin Dispo: Pending clinical improvement, f/u CXR; possible return to [facility] tomorrow VS,Fishbone, I+O VS, Fishbone, I+O Laboratory Tests 09/17/18 06:15 Red Blood Count 3.38 L, Mean Corpuscular Volume 101.5 H, Mean Corpuscular Hemoglobin 35.2 H, Mean Corpuscular Hemoglobin Concent 34.7, Red Cell Distribution Width 12.9, Lymphocytes # (Auto) Vital Signs Date Time Temp Pulse Resp B/P (MAP) Pulse Ox O2 Delivery O2 Flow Rate FiO2 09/17/18 08:56 80 124/82 09/17/18 06:00 97.2 18 94 Nasal Cannula 2.0 I&O- Last 24 Hours up to 6 AM 09/17/18 06:00 Intake Total 980 ml Output Total 1425 ml Balance -445 ml SARAH CUMMINS MD Sep 17, 2018 13:18
[2018-09-17 14:00] VITALS: BP 104/56
--- NOTE | 2018-09-17 14:45 | REP ---
Chest two views HISTORY: Shortness of breath Comparison: 09/09/2018 Linear density is present in the left lower lobe consistent with scar. The right lung is clear. The heart is normal in size. The pulmonary vasculature is normal in appearance. A small hiatal hernia is present. The bony structure is intact. IMPRESSION: No acute disease. Electronically Signed by Darrick Jones MD 09/17/2018 02:38 P
[2018-09-17 22:00] VITALS: BP 134/85
[2018-09-18] MEDS: HEPARIN SOD (PORCINE) 5000 UNITS/ML VIAL SC SCH ×3 (05:37→21:23)
[2018-09-18 06:00] VITALS: BP 125/93
[2018-09-18] MEDS: IPRATROPIUM 0.5MG/ALBUTEROL 2.5MG INH SOL UD 3ML (DUONEB)(J7620) NEB SCH ×4 (07:16→19:25)
[2018-09-18 07:33] LABS: HEMATOCRIT 37.1 % (42.0-52.0); HEMOGLOBIN 12.7 g/dl (13.5-17.5); MEAN CORPUSCULAR HEMOGLOBIN 34.7 pg (27.0-33.0); MEAN CORPUSCULAR HGB CONC 34.2 g/dl (32.0-36.5); MEAN CORPUSCULAR VOLUME 101.4 fl (80.0-96.0); PLATELET COUNT, AUTOMATED 197 10^3/uL (150-450); RED BLOOD COUNT 3.66 10^6/uL (4.30-6.10)
[2018-09-18 08:00] LABS: ALBUMIN 3.3 GM/DL (3.2-5.2); ALT/SGPT 71 U/L (12-78); BILIRUBIN,TOTAL 0.6 MG/DL (0.2-1.0); BLOOD UREA NITROGEN 43 MG/DL (7-18); CALCIUM LEVEL 8.6 MG/DL (8.8-10.2); CARBON DIOXIDE LEVEL 33 MEQ/L (21-32); CHLORIDE LEVEL 97 MEQ/L (98-107); CREATININE FOR GFR 1.17 MG/DL (0.70-1.30); GLOMERULAR FILTRATION RATE > 60.0 (>42); GLUCOSE, FASTING 85 MG/DL (70-100); POTASSIUM SERUM 3.6 MEQ/L (3.5-5.1); SODIUM LEVEL 135 MEQ/L (136-145); TOTAL PROTEIN 6.6 GM/DL (6.4-8.2)
[2018-09-18 08:11] LABS: ATYPICAL LYMPH 6 % (0-5); EOSINOPHILS 1 % (0-5); LYMPHOCYTES 65 % (16-52); MONOCYTES 1 % (0-8); NEUTROPHILS 27 % (35-75); OVALOCYTES 1+; PLATELET ESTIMATE NORMAL (NORMAL); POIKILOCYTOSIS 1+; SMUDGE CELLS 1+
[2018-09-18 08:12] LABS: GIANT PLATELETS 1+
[2018-09-18] MEDS: predniSONE 20 MG TAB PO SCH (09:55)
[2018-09-18] MEDS: FUROSEMIDE 40 MG TAB PO SCH (09:55)
[2018-09-18] MEDS: SERTRALINE HCL 50 MG TAB PO SCH (09:55)
[2018-09-18] MEDS: FERROUS GLUCONATE 324 MG TAB PO SCH ×2 (09:55→21:23)
[2018-09-18] MEDS: SENOKOT S TAB PO SCH (09:56)
[2018-09-18] MEDS: ASPIRIN 81 MG ENTERIC TAB PO SCH (09:56)
[2018-09-18] MEDS: LORATADINE 10 MG TAB PO SCH (09:56)
[2018-09-18] MEDS: FOLIC ACID 1 MG TAB PO SCH (09:56)
[2018-09-18] MEDS: THIAMINE 100 MG TAB PO SCH (09:56)
[2018-09-18] MEDS: CYANOCOBALAMIN 500 MCG TAB PO SCH (09:56)
[2018-09-18] MEDS: OMEPRAZOLE 20 MG CAP PO SCH (09:56)
[2018-09-18] MEDS: METOPROLOL TART 12.5 MG PER 1/2 TAB PO SCH ×2 (10:00→21:22)
--- NOTE | 2018-09-18 11:34 | IPNPDOC ---
Date Seen The patient was seen on 09/18/18. Progress Note Subjective: Patient tells me that he is breathing close to his normal he tells me that he wants to go home today and he is not interested in staying here any longer denies chest pressure and nausea vomiting lightheadedness or dizziness. He tells me he has been using his Acapella Objective: Vitals (See below) General: Lying in bed, no acute distress, comfortable, AAOx3 speaking in complete sentences HEENT: NC, AT CVS: RRR, +S1S2 Lungs: Fair air entry b/l, no rhonchi / rales transmitted upper airway sounds Abdomen: Soft, non-distended and non-tender Extremities: LE without edema, - Calf tenderness, urinary catheter in place Assessment and plan: Chronic hypoxic respiratory failure / Shortness of breath. Normally on 2 L co ntinuously however he is intermittently compliant with this therapy. He improved today and wishes to return back to assisted living however shortly after I visited the patient did request nursing staff to check ambulating O2 site with him on oxygen and he was unable to make it out of the room without dropping his sats significantly. It is curious that he is not improved course of Tamiflu for his influenza I will check a CT angiogram to rule out any other reason why he could be remaining to be hypoxic he has been on steroids for quite a significant amount of time at this point should his CTA be revealing we'll consider inpatient pulmonary consult. I'm less concerned with his rising white count does not appear to be grossly septic whatsoever HTN - BP well controlled - ECHO 09/09: Evidence of diastolic dysfunction - c/w Metoprolol / Furosemide Depression - c/w Sertraline BPH / Urinary retention - s/p Chronic Mcfadden catheter - Changed on 09/05/18 by Urology clinic Urinary tract infection - likely /2 Mcfadden Catheter - Urine culture 09/04: E. Coli - s/p Ciprofloxacin 500mg BID (Completed 7 day course) GERD - c/w Omeprazole DVT prophylaxis - c/w Heparin Disposition: Pending improvement in his respiratory status VS, I&O, 24H, Fishbone Vital Signs/I&O Vital Signs Date Time Temp Pulse Resp B/P (MAP) Pulse Ox O2 Delivery O2 Flow Rate FiO2 09/18/18 11:24 Nasal Cannula 2.0 09/18/18 10:40 22 93 09/18/18 10:00 60 112/78 09/18/18 06:00 97.1 I&O- Last 24 Hours up to 6 AM 09/18/18 06:00 Intake Total 1200 ml Output Total 1350 ml Balance -150 ml Laboratory Data 24H LABS Laboratory Tests 2 09/18/18 07:21: White Blood Count 28.0H, Red Blood Count 3.66L, Hemoglobin 12.7L, Hematocrit 37.1L, Mean Corpuscular Volume 101.4H, Mean Corpuscular Hemoglobin 34.7H, Mean Corpuscular Hemoglobin Concent 34.2, Red Cell Distribution Width 13.1, Platelet Count 197, Lymphocytes # (Auto) , Nucleated Red Blood Cells % (auto) 0.1H, Neutrophils 27L, Lymphocytes (Manual) 65H, Monocytes (Manual) 1, Eosinophils (Manual) 1, Atypical Lymphocytes 6H, Smudge Cells 1+, Platelet Estimate NORMAL, Giant Platelets 1+, Poikilocytosis 1+, Macrocytosis 2+, Ovalocytes 1+, Schistocytes , Anion Gap 5L, Glomerular Filtration Rate > 60.0, Blood Urea Nitrogen 43H, Creatinine 1.17, Sodium Level 135L, Potassium Level 3.6, Chloride Level 97L, Carbon Dioxide Level 33H, Calcium Level 8.6L, Aspartate Amino Transf (AST/SGOT) 36, Alanine Aminotransferase (ALT/SGPT) 71, Alkaline Phosphatase 63, Total Bilirubin 0.6#, Total Protein 6.6, Albumin 3.3, Albumin/Globulin Ratio 1.00 CBC/BMP Laboratory Tests 09/18/18 07:21 Red Blood Count 3.66 L, Mean Corpuscular Volume 101.4 H, Mean Corpuscular Hemoglobin 34.7 H, Mean Corpuscular Hemoglobin Concent 34.2, Red Cell Distribution Width 13.1, Lymphocytes # (Auto) , Calcium Level 8.6 L, Aspartate Amino Transf (AST/SGOT) 36, Alanine Aminotransferase (ALT/SGPT) 71, Alkaline Phosphatase 63, Total Bilirubin 0.6 #, Total Protein 6.6, Albumin 3.3 Microbiology Microbiology 09/09/18 Blood Culture - Final, Complete NO GROWTH AFTER 5 DAYS 09/09/18 Blood Culture - Final, Complete NO GROWTH AFTER 5 DAYS 09/09/18 Respiratory Virus Panel (PCR) (LIZA) - Final, Complete Influenza A H1-2009 ANDERSON KELLEY MD Sep 18, 2018 11:34
[2018-09-18] MEDS ORDERED: ISOVUE-370 76% 100ML VIAL (Q9967) As Ordered ONE (12:02)
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
[2018-09-18 14:00] VITALS: BP 130/89
[2018-09-18] MEDS: guaiFENesin ER 600 MG TAB PO SCH ×2 (14:17→21:22)
[2018-09-18 22:00] VITALS: BP 128/82
[2018-09-19] MEDS: HEPARIN SOD (PORCINE) 5000 UNITS/ML VIAL SC SCH ×3 (05:48→22:00)
[2018-09-19] MEDS: IPRATROPIUM 0.5MG/ALBUTEROL 2.5MG INH SOL UD 3ML (DUONEB)(J7620) NEB SCH ×4 (07:46→19:05)
[2018-09-19] MEDS: SENOKOT S TAB PO SCH (09:02)
[2018-09-19] MEDS: CYANOCOBALAMIN 500 MCG TAB PO SCH (09:02)
[2018-09-19] MEDS: FERROUS GLUCONATE 324 MG TAB PO SCH ×2 (09:02→21:13)
[2018-09-19] MEDS: predniSONE 20 MG TAB PO SCH (09:02)
[2018-09-19] MEDS: FOLIC ACID 1 MG TAB PO SCH (09:02)
[2018-09-19] MEDS: FUROSEMIDE 40 MG TAB PO SCH (09:02)
[2018-09-19] MEDS: guaiFENesin ER 600 MG TAB PO SCH ×2 (09:02→21:13)
[2018-09-19] MEDS: ASPIRIN 81 MG ENTERIC TAB PO SCH (09:02)
[2018-09-19] MEDS: LORATADINE 10 MG TAB PO SCH (09:02)
[2018-09-19] MEDS: SERTRALINE HCL 50 MG TAB PO SCH (09:02)
[2018-09-19] MEDS: THIAMINE 100 MG TAB PO SCH (09:02)
[2018-09-19] MEDS: METOPROLOL TART 12.5 MG PER 1/2 TAB PO SCH ×2 (09:03→21:14)
[2018-09-19] MEDS: OMEPRAZOLE 20 MG CAP PO SCH (09:03)
[2018-09-19 10:40] LABS: HEMOGLOBIN 11.5 g/dl (13.5-17.5); MEAN CORPUSCULAR HGB CONC 33.8 g/dl (32.0-36.5); MEAN CORPUSCULAR VOLUME 103.3 fl (80.0-96.0); PLATELET COUNT, AUTOMATED 191 10^3/uL (150-450); RED BLOOD COUNT 3.29 10^6/uL (4.30-6.10); WHITE BLOOD COUNT 22.8 10^3/uL (4.0-10.0)
[2018-09-19 10:56] LABS: BLOOD UREA NITROGEN 36 MG/DL (7-18); CALCIUM LEVEL 8.2 MG/DL (8.8-10.2); CARBON DIOXIDE LEVEL 31 MEQ/L (21-32); CHLORIDE LEVEL 98 MEQ/L (98-107); GLOMERULAR FILTRATION RATE > 60.0 (>42); GLUCOSE, FASTING 108 MG/DL (70-100); POTASSIUM SERUM 3.5 MEQ/L (3.5-5.1); SODIUM LEVEL 139 MEQ/L (136-145)
--- NOTE | 2018-09-19 11:53 | IPNPDOC ---
Date Seen The patient was seen on 09/19/18. Progress Note SUBJECTIVE: Patient is a 78-year-old male with influenza positive. Patient is evaluated at bedside this morning. Laying in the supine position and does not use to conversant. States he feels short of breath and has a productive cough. States has a history of chronic obstructive pulmonary disease and follows with a local training consultant, but is unsure which training consultant. Wears oxygen c hronically. OBJECTIVE PHYSICAL EXAMINATION: VITAL SIGNS: Please see below. GENERAL: Elderly frail male, appropriately dressed in hospital attire, laying in the supine position in the hospital, minimally conversant, no acute distress. HEENT: Atraumatic, normocephalic, PERRL, EOMI, oral mucosa appears pink and moist, nasal septum appears midline, nares are patent, nasal cannula is initia lly not in place during my evaluation, dry blood around the bilateral nares. CARDIOVASCULAR: Regular rate and rhythm, normal S1 and S2, no murmur, rub, click. RESPIRATORY: Diffuse wheezes noted throughout lung lobes, diminished in the bases bilaterally, no crackles. ABDOMINAL: Soft, nontender, nondistended, bowel sounds appreciated EXTREMITIES: No cyanosis, no clubbing, no peripheral edema. NEUROLOGICAL: No focal neurological deficits. PSYCHOLOGICAL: Minimally conversant, but answers questions appropriately. LABORATORY DATA, IMAGING STUDIES, MICROBIOLOGY: Please see below. Portable chest x-ray on 09/09/2018 - no acute disease. Chest x-ray, two-view, PA and lateral on 09/17/2018 - no acute disease. CT angiogram of the chest on 09/18/2018 - no evidence of pulmonary embolus, large hiatal hernia, bilateral upper pole renal cyst, bronchiectasis in the lower lobes bilaterally, no infiltrate. Echocardiogram - mild tricuspid regurgitation. DVT prophylaxis ordered?: Heparin 5000 units subcutaneous every 8 hours. ASSESSMENT AND PLAN: This is a 78-year-old male with COPD exacerbation with influenza positive. PROBLEMS: 1. Chronic obstructive pulmonary disease exacerbation, bronchiectasis: Likely secondary to influenza infection. Continue DuoNeb scheduled and as needed. Cont inue with prednisone 40 mg by mouth daily. Patient was previously on Solu- Medrol. Chronically, patient takes prednisone 10 mg by mouth daily. Takes Breo at home. Patient is chronically oxygen dependent and currently on 2 L by nasal cannula. Continue with incentive spirometry, EZ-Pap and chest PT. CT angiogram of the chest negative for pulmonary embolism. Added Advair and Mucomyst. Pulmonology consulted. 2. Influenza positive: Patient completed a course of Tamiflu. 3. Cough: Continue with Mucinex. Respiratory panel was positive for influenza A [id number]. 4. Hypertension: Continue metoprolol and Lasix. 5. Gastroesophageal reflux disease: Continue omeprazole. 6. Allergies: Continue Claritin. 7. Depression: Continue sertraline. 8. Iron deficiency: Continue ferrous gluconate. DISPOSITION: Pulmonology consulted. VS, I&O, 24H, Fishbone Vital Signs/I&O Vital Signs Date Time Temp Pulse Resp B/P (MAP) Pulse Ox O2 Delivery O2 Flow Rate FiO2 09/19/18 10:33 2.0 09/19/18 09:03 79 133/77 09/18/18 22:00 97.8 20 96 Nasal Cannula I&O- Last 24 Hours up to 6 AM 09/19/18 06:00 Intake Total 2040 ml Output Total 1800 ml Balance 240 ml Laboratory Data 24H LABS Laboratory Tests 2 09/19/18 10:15: Nucleated Red Blood Cells % (auto) 0.0, Anion Gap 10, Glomerular Filtration Rate > 60.0, Blood Urea Nitrogen 36H, Creatinine 1.00, Sodium Level 139, Potassium Level 3.5, Chloride Level 98, Carbon Dioxide Level 31, Calcium Level 8.2L CBC/BMP Laboratory Tests 09/19/18 10:15 Red Blood Count 3.29 L, Mean Corpuscular Volume 103.3 H, Mean Corpuscular Hemoglobin 35.0 H, Mean Corpuscular Hemoglobin Concent 33.8, Red Cell Distribution Width 13.2, Calcium Level 8.2 L Microbiology Microbiology 09/09/18 Blood Culture - Final, Complete NO GROWTH AFTER 5 DAYS 09/09/18 Blood Culture - Final, Complete NO GROWTH AFTER 5 DAYS 09/09/18 Respiratory Virus Panel (PCR) ([facility]) - Final, Complete Influenza A H1-2009 GIULIANO DÍAZ DO Sep 19, 2018 11:53
[2018-09-19] MEDS ORDERED: ACETYLCYSTEINE 20% 4 ML VIAL (200MG/ML) INH ONE (13:45)
[2018-09-19 14:00] VITALS: BP 117/62
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
[2018-09-19] MEDS: ADVAIR HFA 230/21MCG INHALER INH SCH (19:06)
[2018-09-19] MEDS: ACETYLCYSTEINE 20% 4 ML VIAL (200MG/ML) INH SCH (20:00)
[2018-09-19 22:00] VITALS: BP 124/80
[2018-09-20] MEDS: HEPARIN SOD (PORCINE) 5000 UNITS/ML VIAL SC SCH (05:03)
[2018-09-20 06:00] VITALS: BP 130/76
[2018-09-20] MEDS: ACETYLCYSTEINE 20% 4 ML VIAL (200MG/ML) INH SCH ×2 (07:56→21:29)
[2018-09-20] MEDS: IPRATROPIUM 0.5MG/ALBUTEROL 2.5MG INH SOL UD 3ML (DUONEB)(J7620) NEB SCH ×4 (07:56→21:29)
[2018-09-20] MEDS: ADVAIR HFA 230/21MCG INHALER INH SCH ×2 (07:59→21:00)
[2018-09-20] MEDS: SENOKOT S TAB PO SCH (08:38)
[2018-09-20] MEDS: predniSONE 20 MG TAB PO SCH (08:38)
[2018-09-20] MEDS: ASPIRIN 81 MG ENTERIC TAB PO SCH (08:39)
[2018-09-20] MEDS: SERTRALINE HCL 50 MG TAB PO SCH (08:39)
[2018-09-20] MEDS: FERROUS GLUCONATE 324 MG TAB PO SCH ×2 (08:39→21:30)
[2018-09-20] MEDS: CYANOCOBALAMIN 500 MCG TAB PO SCH (08:39)
[2018-09-20] MEDS: FUROSEMIDE 40 MG TAB PO SCH (08:39)
[2018-09-20] MEDS: OMEPRAZOLE 20 MG CAP PO SCH (08:39)
[2018-09-20] MEDS: guaiFENesin ER 600 MG TAB PO SCH ×2 (08:39→21:30)
[2018-09-20] MEDS: FOLIC ACID 1 MG TAB PO SCH (08:39)
[2018-09-20] MEDS: LORATADINE 10 MG TAB PO SCH (08:40)
[2018-09-20] MEDS: THIAMINE 100 MG TAB PO SCH (08:40)
[2018-09-20] MEDS: METOPROLOL TART 12.5 MG PER 1/2 TAB PO SCH ×2 (08:40→21:30)
[2018-09-20] MEDS: ENOXAPARIN 40 MG/0.4 ML SYRINGE (J1650) SC SCH (09:00)
[2018-09-20 14:00] VITALS: BP 127/87
--- NOTE | 2018-09-20 14:21 | IPNPDOC ---
Date Seen The patient was seen on 09/20/18. Progress Note Subjective: Patient tells me that he is breathing is improved today he has no specific complaints at this time Objective: Vitals (See below) General: Sitting in a chair, no acute distress, comfortable, AAOx3 speaking in complete sentences HEENT: NC, AT CVS: RRR, +S1S2 Lungs: Fair air entry b/l, no rhonchi / rales transmitted upper airway sounds Abdomen: Soft, non-distended and non-tender ecchymosis secondary to heparin injections Extremities: LE without edema, - Calf tenderness, urinary catheter in place Assessment and plan: Chronic hypoxic respiratory failure / Shortness of breath. Normally on 2 L continuously however he is intermittently compliant with this therapy. He has had very slow progress, pulmonary help is greatly appreciated he does appear to be improved. I've encouraged him to be out of bed with meals. Continue steroid she's completed a course of Tamiflu continue with pulmonary toilet easy Pap chest PT Advair Mucomyst duo nebs. We'll check an admitting O2 sat tomorrow morning HTN - BP well controlled - ECHO 09/09: Evidence of diastolic dysfunction - c/w Metoprolol / Furosemide Depression - c/w Sertraline BPH / Urinary retention - s/p Chronic Mcfadden catheter - Changed on 09/05/18 by Urology clinic Urinary tract infection - likely 2/2 Mcfadden Catheter - Urine culture 09/04: E. Coli - s/p Ciprofloxacin 500mg BID (Completed 7 day course) GERD - c/w Omeprazole DVT prophylaxis - c/w Heparin Disposition: Pending improvement in his respiratory status VS, I&O, 24H, Fishbone Vital Signs/I&O Vital Signs Date Time Temp Pulse Resp B/P (MAP) Pulse Ox O2 Delivery O2 Flow Rate FiO2 09/20/18 10:07 2.0 09/20/18 08:40 88 127/83 09/20/18 06:00 97.7 18 97 Nasal Cannula I&O- Last 24 Hours up to 6 AM 09/20/18 06:00 Intake Total 600 ml Output Total 1775 ml Balance -1175 ml ANDERSON KELLEY MD Sep 20, 2018 14:21
[2018-09-20 22:00] VITALS: BP 130/90
[2018-09-21 06:00] VITALS: BP 130/78
[2018-09-21] MEDS: ACETYLCYSTEINE 20% 4 ML VIAL (200MG/ML) INH SCH ×2 (07:12→23:15)
[2018-09-21] MEDS: IPRATROPIUM 0.5MG/ALBUTEROL 2.5MG INH SOL UD 3ML (DUONEB)(J7620) NEB SCH ×4 (07:12→23:15)
[2018-09-21] MEDS: ADVAIR HFA 230/21MCG INHALER INH SCH ×2 (07:12→20:14)
[2018-09-21] MEDS: CYANOCOBALAMIN 500 MCG TAB PO SCH (08:30)
[2018-09-21] MEDS: THIAMINE 100 MG TAB PO SCH (08:30)
[2018-09-21] MEDS: OMEPRAZOLE 20 MG CAP PO SCH (08:30)
[2018-09-21] MEDS: guaiFENesin ER 600 MG TAB PO SCH ×2 (08:30→21:42)
[2018-09-21] MEDS: FOLIC ACID 1 MG TAB PO SCH (08:30)
[2018-09-21] MEDS: FUROSEMIDE 40 MG TAB PO SCH (08:31)
[2018-09-21] MEDS: FERROUS GLUCONATE 324 MG TAB PO SCH ×2 (08:31→21:42)
[2018-09-21] MEDS: SERTRALINE HCL 50 MG TAB PO SCH (08:31)
[2018-09-21] MEDS: METOPROLOL TART 12.5 MG PER 1/2 TAB PO SCH ×2 (08:31→21:43)
[2018-09-21] MEDS: SENOKOT S TAB PO SCH (08:31)
[2018-09-21] MEDS: LORATADINE 10 MG TAB PO SCH (08:31)
[2018-09-21] MEDS: ASPIRIN 81 MG ENTERIC TAB PO SCH (08:31)
[2018-09-21] MEDS: predniSONE 20 MG TAB PO SCH (08:31)
[2018-09-21] MEDS: ENOXAPARIN 40 MG/0.4 ML SYRINGE (J1650) SC SCH (08:32)
--- NOTE | 2018-09-21 11:26 | IPNPDOC ---
Date Seen The patient was seen on 09/21/18. Progress Note SUBJECTIVE: Patient is a 78-year-old male with influenza. Patient is evaluated bedside this morning. Is laying in the supine position. He states that he feels short of breath, is coughing, and feels diffusely weak. No fevers, night sweats, chills. Ate breakfast this morning without difficulty. OBJECTIVE PHYSICAL EXAMINATION: VITAL SIGNS: Please see below. GENERAL: Elderly frail male, appropriately dressed in hospital attire, laying in the supine position in the hospital, more conversant today, no acute distress. HEENT: Atraumatic, normocephalic, PERRL, EOMI, oral mucosa appears pink and moist, nasal septum appears midline, nares are patent, nasal cannula malaligned in nares. CARDIOVASCULAR: Regular rate and rhythm, normal S1 and S2, no murmur, rub, click. RESPIRATORY: Coarse breath sounds noted in upper bilateral lobes, diminished auscultatory findings noted in the bilateral lower lobes, poor inspiratory effort, no definite wheezing noted, no crackles. ABDOMINAL: Soft, nontender, nondistended, bowel sounds appreciated EXTREMITIES: No cyanosis, no clubbing, no peripheral edema. NEUROLOGICAL: No focal neurological deficits. PSYCHOLOGICAL: Minimally conversant, but answers questions appropriately. LABORATORY DATA, IMAGING STUDIES, MICROBIOLOGY: Please see below. Portable chest x-ray on 09/09/2018 - no acute disease. Chest x-ray, two-view, PA and lateral on 09/17/2018 - no acute disease. CT angiogram of the chest on 09/18/2018 - no evidence of pulmonary embolus, large hiatal hernia, bilateral upper pole renal cyst, bronchiectasis in the lower lobes bilaterally, no infiltrate. Echocardiogram - mild tricuspid regurgitation. DVT prophylaxis ordered?: Heparin 5000 units subcutaneous every 8 hours. ASSESSMENT AND PLAN: This is a 78-year-old male with influenza and chronic obstructive pulmonary disease exacerbation. PROBLEMS: 1. Chronic obstructive pulmonary disease exacerbation, bronchiectasis: Likely secondary to influenza. Pulmonary consult. Continue with DuoNeb's. Continue with Mucomyst and Advair. Continue with EZ Pap, incentive spirometry, and chest PT. Continue with prednisone 40 mg by mouth daily. Patient is on prednisone 10 mg by mouth daily as outpatient. Patient is chronically oxygen dependent and on 2 L by nasal cannula. Patient to be ambulated with oxygen with monitoring of oxygen saturation. 2. Diffuse weakness. Patient is previously been cleared by physical therapy on 09/11/2018 and 09/15/2018. Will have physical therapy reevaluate patient. Patient lives in assisted living facility and uses a wheelchair at baseline. Patient's ambulatory distance may need clarification prior to discharge. 3. Leukocytosis: Patient is on Prednisone and takes Prednisone chronically at home. He is not currently febrile, tachycardiac, or hypotensive. No active si gns indicating infectious source. Patient has chronic Mcfadden catheter. Will change catheter. Nursing informed. 4. Influenza positive: Patient completed a course of Tamiflu. 5. Cough: Continue with Mucinex. Respiratory panel was positive for influenza A [id number]. 6. Hypertension: Continue metoprolol and Lasix. 7. Gastroesophageal reflux disease: Continue omeprazole. 8. Allergies: Continue Claritin. 9. Depression: Continue sertraline. 10. Iron deficiency: Continue ferrous gluconate. 11. Chronic indwelling Mcfadden catheter: Will change urinary catheter. No clinical signs of infection. Negative CVA. No suprapubic pain. DISPOSITION: Pending respiratory improvement and physical therapy evaluation. VS, I&O, 24H, Fishbone Vital Signs/I&O Vital Signs Date Time Temp Pulse Resp B/P (MAP) Pulse Ox O2 Delivery O2 Flow Rate FiO2 09/21/18 09:00 2.0 09/21/18 08:31 59 09/21/18 08:30 97 Nasal Cannula 09/21/18 06:00 97.7 20 130/78 (95) I&O- Last 24 Hours up to 6 AM 09/21/18 06:00 Intake Total 1580 ml Output Total 900 ml Balance 680 ml GIULIANO DÍAZ DO Sep 21, 2018 11:26
[2018-09-21 14:00] VITALS: BP 126/68
[2018-09-21 21:43] VITALS: BP 126/68
[2018-09-21 22:00] VITALS: BP 142/79
[2018-09-22 06:00] VITALS: BP 143/69
[2018-09-22 06:16] LABS: HEMATOCRIT 32.6 % (42.0-52.0); HEMOGLOBIN 10.8 g/dl (13.5-17.5); MEAN CORPUSCULAR HEMOGLOBIN 34.5 pg (27.0-33.0); MEAN CORPUSCULAR HGB CONC 33.1 g/dl (32.0-36.5); MEAN CORPUSCULAR VOLUME 104.2 fl (80.0-96.0); PLATELET COUNT, AUTOMATED 198 10^3/uL (150-450); RED BLOOD COUNT 3.13 10^6/uL (4.30-6.10); WHITE BLOOD COUNT 17.4 10^3/uL (4.0-10.0)
[2018-09-22 06:40] LABS: BLOOD UREA NITROGEN 33 MG/DL (7-18); CALCIUM LEVEL 8.3 MG/DL (8.8-10.2); CARBON DIOXIDE LEVEL 33 MEQ/L (21-32); CHLORIDE LEVEL 99 MEQ/L (98-107); CREATININE FOR GFR 0.93 MG/DL (0.70-1.30); GLOMERULAR FILTRATION RATE > 60.0 (>42); GLUCOSE, FASTING 105 MG/DL (70-100); POTASSIUM SERUM 3.4 MEQ/L (3.5-5.1); SODIUM LEVEL 138 MEQ/L (136-145)
[2018-09-22] MEDS ORDERED: POTASSIUM CHLORIDE 10 MEQ SR TABLET PO ONE (07:15)
[2018-09-22] MEDS: IPRATROPIUM 0.5MG/ALBUTEROL 2.5MG INH SOL UD 3ML (DUONEB)(J7620) NEB SCH ×2 (07:57→10:56)
[2018-09-22] MEDS: ACETYLCYSTEINE 20% 4 ML VIAL (200MG/ML) INH SCH (07:57)
[2018-09-22] MEDS: ADVAIR HFA 230/21MCG INHALER INH SCH (07:58)
[2018-09-22] MEDS: guaiFENesin ER 600 MG TAB PO SCH (09:17)
[2018-09-22] MEDS: CYANOCOBALAMIN 500 MCG TAB PO SCH (09:17)
[2018-09-22] MEDS: ASPIRIN 81 MG ENTERIC TAB PO SCH (09:18)
[2018-09-22] MEDS: SERTRALINE HCL 50 MG TAB PO SCH (09:18)
[2018-09-22] MEDS: FERROUS GLUCONATE 324 MG TAB PO SCH (09:18)
[2018-09-22] MEDS: predniSONE 20 MG TAB PO SCH (09:18)
[2018-09-22] MEDS: FOLIC ACID 1 MG TAB PO SCH (09:18)
[2018-09-22] MEDS: LORATADINE 10 MG TAB PO SCH (09:18)
[2018-09-22] MEDS: FUROSEMIDE 40 MG TAB PO SCH (09:18)
[2018-09-22] MEDS: THIAMINE 100 MG TAB PO SCH (09:18)
[2018-09-22] MEDS: OMEPRAZOLE 20 MG CAP PO SCH (09:18)
[2018-09-22] MEDS: SENOKOT S TAB PO SCH (09:18)
[2018-09-22] MEDS: METOPROLOL TART 12.5 MG PER 1/2 TAB PO SCH (09:19)
[2018-09-22] MEDS: ENOXAPARIN 40 MG/0.4 ML SYRINGE (J1650) SC SCH ×2 (09:20→10:15)
[2018-09-22] MEDS ORDERED: PRED10PA2 PO (10:32)
[2018-09-22] MEDS ORDERED: ACET20%4ML INH ×3 (11:05→11:46)
[2018-09-22] MEDS ORDERED: PRED10TA2 PO (11:18)
[2018-09-22] MEDS ORDERED: ALBU83IN INH (11:46)
--- NOTE | 2018-09-22 14:01 | DS.PDOC ---
Discharge Summary General Date of Admission Sep 09, 2018 at 14:29 Date of Discharge 09/22/2018 Primary Care Physician: Jr Mccarthy Collins Attending Physician: ANDERSON KELLEY MD Specialist/Consultants Involve: ROCAEL LANGSTON MD Discharge Summary PROCEDURES PERFORMED DURING STAY: 1. Transthoracic echocardiogram - left ventricular ejection fraction 60%, mild tricuspid regurgitation, mild pulmonary hypertension. ADMITTING DIAGNOSES: 1. Acute hypoxic respiratory failure. 2. Shortness of breath. DISCHARGE DIAGNOSES: 1. Chronic hypoxic respiratory failure. 2. Shortness of breath. 3. COPD exacerbation, bronchiectasis. 4. Influenza A. 5. Diffuse weakness. 6. Leukocytosis, reactive/drug induced. 7. Cough. 8. Hypertension. 9. Gastroesophageal reflux disease. 10. Allergies. 11. Depression. 12. Iron deficiency. 13. Chronic indwelling Mcfadden catheter. COMPLICATIONS/CHIEF COMPLAINT: COPD Exacerbation, Influenza A. HISTORY OF PRESENT ILLNESS: Mr. Sterling is a 78-year-old male with a PMHx of HTN, COPD on O2, Depression, BPH / Urinary retention (s/p Chronic Mcfadden catheter), Hx of PVC, GERD who is a resident of [facility] who presented to the emergency room with complaints of shortness of breath that has been going on for approximately 7-10 days. Patient has noted that his shortness of breath has been progressive. . He denies any chest pain or palpitations. Denies any productive cough. Denies any fevers or chills. Patient does report two-pillow orthopnea but denies any nighttime awakenings because of shortness of breath. Patient denies any lower extremity edema. Patient denies any nausea, vomiting, abdominal pain, constipation or diarrhea. Patient does have a chronic Mcfadden catheter in place. He is unsure of when this was last changed. He does follow with Dr. Guerra as an outpatient. As per ER staff, patient has been reported to be noncompliant with his oxygen use as an outpatient. Patient denies any significant change to his weight, and notes that his appetite has improved over the years. HOSPITAL COURSE: Patient was admitted for COPD exacerbation with underlying influenza A infection. Continue inhaled therapy. Started SoluMedrol, tapered dose, and transitioned to oral Prednisone which patient initially did not tolerated. Required transition back to SoluMedrol. Taper to oral Prednisone was again attempted with success which was continued on a long taper at time of discharge. Completed a course of Tamiflu. Obtained a chest x-ray which was unrevealing. However, patient continued to cough with noted wheezing. Ambulation with oxygen while monitoring oxygenation saturation revealed a decrease in his oxygenation. Incentive spirometry and Acapella were added as well as chest PT. Pulmonology was consulted with recommendations to start Mucomyst and adjust patient's out-patient BREO to Advair. Patient may continue BREo at time of discharge. He is to continue Mucomyst upon discharge. Physical therapy evaluated patient several time with determination that patient was at baseline for return to assisted living when medically cleared. Obtained a echocardiogram as resulted above. Continued Ciprofloxacin that was prescribed as an out-patient for urinary retention with urine culture positive for E. coli. The course of antibiotic was completed. Continued medications for chronic medi shane conditions. Patient improved to baseline with additions made to medications. Cleared for discharge to assisted living facility. DISCHARGE MEDICATIONS: Please see below. ALLERGIES: Please see below. PHYSICAL EXAMINATION ON DISCHARGE: VITAL SIGNS: Please see below. GENERAL: Elderly frail male, appropriately dressed in hospital attire, laying in the supine position in the hospital, more conversant today, no acute distress. HEENT: Atraumatic, normocephalic, PERRL, EOMI, oral mucosa appears pink and moist, nasal septum appears midline, nares are patent, nasal cannula malaligned in nares. CARDIOVASCULAR: Regular rate and rhythm, normal S1 and S2, no murmur, rub, click. RESPIRATORY: Coarse breath sounds noted in upper bilateral lobes, diminished auscultatory findings noted in the bilateral lower lobes, poor inspiratory effort, no definite wheezing noted, no crackles. ABDOMINAL: Soft, nontender, nondistended, bowel sounds appreciated EXTREMITIES: No cyanosis, no clubbing, no peripheral edema. NEUROLOGICAL: No focal neurological deficits. PSYCHOLOGICAL: Minimally conversant, but answers questions appropriately. LABORATORY DATA: Please see below. IMAGING: PROGNOSIS: ACTIVITY: Activity as tolerated, wheelchair as needed for shortness of breath. DIET: Regular. DISCHARGE PLAN: Problem: Managing health at home Goal: Improve health & wellness Instructions: Follow DC Instruction DISPOSITION: [facility], [facility]. DISCHARGE INSTRUCTIONS: 1. Follow up with primary care provider, Dr. Mccarthy, in 7-10 days. 2. Start using Mucomyst co-administered with Albuterol nebulizer twice daily. 3. Complete the tapering course of Prednisone. 4. Return to the nearest Emergency Department should your symptoms worsen or persist. ITEMS TO FOLLOWUP ON ON OUTPATIENT: 1. Bronchiectasis. 2. Chronic indwelling Mcfadden catheter management. DISCHARGE CONDITION: Stable. TIME SPENT ON DISCHARGE: Greater than 30 minutes. Vital Signs/I&Os Vital Signs Date Time Temp Pulse Resp B/P (MAP) Pulse Ox O2 Delivery O2 Flow Rate FiO2 09/22/18 09:19 76 09/22/18 09:00 2.0 09/22/18 06:00 97.3 16 143/69 (93) 97 Nasal Cannula I&O- Last 24 Hours up to 6 AM 09/22/18 05:59 Intake Total 1730 ml Output Total 1350 ml Balance 380 ml Laboratory Data Labs 24H Laboratory Tests 2 09/22/18 06:03: Nucleated Red Blood Cells % (auto) 0.0, Anion Gap 6L, Glomerular Filtration Rate > 60.0, Blood Urea Nitrogen 33H, Creatinine 0.93, Sodium Level 138, Potassium Level 3.4L, Chloride Level 99, Carbon Dioxide Level 33H, Calcium Level 8.3L CBC/BMP Laboratory Tests 09/22/18 06:03 Red Blood Count 3.13 L, Mean Corpuscular Volume 104.2 H, Mean Corpuscular Hemoglobin 34.5 H, Mean Corpuscular Hemoglobin Concent 33.1, Red Cell Dis tribution Width 13.1, Calcium Level 8.3 L Discharge Medications Scheduled Acetylcysteine (Acetylcysteine) 800 Mg/4 Ml Elmo, 400 MG INH RBID Co-administer with Albuterol nebulizer, twice daily Albuterol Sulfate (Albuterol Sulfate) 2.5 Mg/3 Ml Nebu, 2.5 MG INH BID Co-administer with Mucomyst, twice daily Albuterol/Ipratropium (Ipratropium Thomas/Albut 0.5-2.5 (3) mg/3Ml) 1 Elmo Elmo, 1 ELMO INH TID, (Reported) 0600/1400/1999 Aspirin (Aspirin EC) 81 Mg Tab, 81 MG PO DAILY, (Reported) Cyanocobalamin (Vitamin B-12 Cr) 1,000 Mcg Tab, 1,000 MCG PO DAILY, (Reported) Docusate Sod/Senna (Senokot S 8.6-50 mg) 1 Tab Tab, 1 TAB PO DAILY, (Reported) Docusate Sodium (Colace) 100 Mg Cap, 100 MG PO BID, (Reported) Ferrous Gluconate (Ferrous Gluconate) 324 Mg Tab, 324 MG PO BID, (Reported) Fluticasone/Vilanterol (Breo Ellipta 100-25 Mcg/INH) 1 Inh Inh, 1 PUFF INH DAILY, (Reported) Folic Acid (Folic Acid) 1 Mg Tab, 1 MG PO DAILY, (Reported) Furosemide (Lasix) 40 Mg Tab, 40 MG PO DAILY, (Reported) Loratadine (Claritin) 10 Mg Cap, 10 MG PO DAILY, (Reported) Metoprolol Tartrate (Metoprolol Tartrate) 25 Mg Tab, 12.5 MG PO BID, (Reported) Omeprazole (Omeprazole) 20 Mg Cap, 20 MG PO DAILY, (Reported) Prednisone (Prednisone) 10 Mg Arturo, 10 MG PO DAILY Take 3 tabs daily for 7 days, then take 2 tabs daily for 7 days, then resume home dose of 10mg daily Prednisone (Prednisone) 10 Mg Tab, 10 MG PO DAILY Continue upon completion of tapering Prednisone dosing Sertraline HCl (Sertraline HCl) 100 Mg Tab, 150 MG PO DAILY, (Reported) Thiamine HCl (Thiamine HCl) 100 Mg Tab, 100 MG PO DAILY, (Reported) Scheduled PRN Acetaminophen (Tylenol) 325 Mg Tab, 650 MG PO Q4H PRN for PAIN, (Reported) Acetaminophen/Hydrocodone (Hydrocodone/Acetaminophen 5-325 mg) 1 Tab Tab, 1 TAB PO Q6H PRN for PAIN, (Reported) Albuterol Sulfate (Albuterol Sulfate) 2.5 Mg/3 Ml Nebu, 2.5 MG INH Q2HP PRN for SOB/WHEEZING, (Reported) Albuterol Sulfate (Ventolin Hfa) 108 Mcg/Act Aer, 2 PUFFS INH Q6H PRN for SHORTNESS OF BREATH, (Reported) Loperamide HCl (Loperamide HCl) 2 Mg Cap, 2 MG PO for DIARRHEA, (Reported) Allergies Coded Allergies: No Known Allergies (Verified , 03/05/18) GIULIANO DÍAZ DO Sep 22, 2018 14:01
== END 2018-09-22 13:30 | DRG 194 ==
LOC: EDBD 10:14 → M ED 10:14 → M ED INP 14:29 → M MSPAV 16:45
PROVIDERS: ADMIT Internal Medicine; ATTEND Internal Medicine
DX: J10.1 Influenza due to other identified influenza virus with other respiratory manifestations (principal); J96.11 Chronic respiratory failure with hypoxia; J44.1 Chronic obstructive pulmonary disease with (acute) exacerbation; J44.0 Chronic obstructive pulmonary disease with (acute) lower respiratory infection; I10 Essential (primary) hypertension; F32.9 Major depressive disorder, single episode, unspecified; B96.20 Unspecified Escherichia coli [E. coli] as the cause of diseases classified elsewhere; N40.1 Benign prostatic hyperplasia with lower urinary tract symptoms; J30.9 Allergic rhinitis, unspecified; E61.1 Iron deficiency; R33.9 Retention of urine, unspecified; K21.9 Gastro-esophageal reflux disease without esophagitis; Z99.81 Dependence on supplemental oxygen; Z79.82 Long term (current) use of aspirin; Z79.52 Long term (current) use of systemic steroids; Z79.899 Other long term (current) drug therapy; Z87.891 Personal history of nicotine dependence

== ENCOUNTER 2018-09-30 10:22 | Emergency (ER) | payer MEDICARE, MEDICAID ==
[~2018-09-30 10:22] MED LIST changes: +ACET20%4ML INH; +CLAR10CA3 PO; +PRED10PA2 PO
--- NOTE | 2018-09-30 11:54 | REP ---
Chest one-view HISTORY: Weakness Comparison: 09/17/2018 Linear density is present in the left lower lobe consistent with scarring. The right lung is clear. The heart is normal in size. The pulmonary vasculature is normal in appearance. Impression: No acute disease. Electronically Signed by Darrick Jones MD 09/30/2018 11:46 A
[2018-09-30 11:55] LABS: ABG BASE EXCESS 7.3 (-2.0-2.0); ABG HCO3 31.9 MEQ/L (22.0-26.0); ABG O2 SATURATION 95.7 % (95.0-99.0); ABG PARTIAL PRESSURE CO2 44.8 mmHg (35.0-45.0); ABG PARTIAL PRESSURE O2 80.9 mmHg (75.0-100.0); ABG STANDARD HCO3 31.1 MEQ/L (22.0-26.0); ABG TOTAL CO2 33.2 MEQ/L (23.0-31.0)
[2018-09-30 11:57] LABS: HEMATOCRIT 36.3 % (42.0-52.0); HEMOGLOBIN 12.4 g/dl (13.5-17.5); MEAN CORPUSCULAR HEMOGLOBIN 34.5 pg (27.0-33.0); MEAN CORPUSCULAR HGB CONC 34.2 g/dl (32.0-36.5); MEAN CORPUSCULAR VOLUME 101.1 fl (80.0-96.0); PLATELET COUNT, AUTOMATED 189 10^3/uL (150-450); RED BLOOD COUNT 3.59 10^6/uL (4.30-6.10)
[2018-09-30] MEDS ORDERED: IPRA2IN NEB (12:08)
[2018-09-30] MEDS ORDERED: ACET20%4ML INH (12:08)
[2018-09-30] MEDS ORDERED: ALB2.5NEB INH ×2 (12:08→12:21)
[2018-09-30 12:09] LABS: WHITE BLOOD COUNT 19.4 10^3/uL (4.0-10.0)
[2018-09-30] MEDS ORDERED: PRED10TA2 PO (12:21)
[2018-09-30 12:31] LABS: BLOOD UREA NITROGEN 34 MG/DL (7-18); CARBON DIOXIDE LEVEL 31 MEQ/L (21-32); CHLORIDE LEVEL 99 MEQ/L (98-107); GLOMERULAR FILTRATION RATE > 60.0 (>42); GLUCOSE, FASTING 139 MG/DL (70-100); POTASSIUM SERUM 3.8 MEQ/L (3.5-5.1); SODIUM LEVEL 138 MEQ/L (136-145)
[2018-09-30 12:32] LABS: MB/CK RELATIVE INDEX 6.9 (< OR =4); TROPONIN I 0.05 NG/ML (< 0.10)
[2018-09-30 12:54] LABS: ATYPICAL LYMPH 12 % (0-5); BASOPHILS 2 % (0-4); LYMPHOCYTES 32 % (16-52); MONOCYTES 4 % (0-8); NEUTROPHILS 46 % (35-75); PLATELET ESTIMATE NORMAL (NORMAL)
[2018-09-30 15:47] VITALS: BP 125/76
--- NOTE | 2018-09-30 17:52 | ECGEPIP ---
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
== END 2018-09-30 17:30 | disposition home or self-care (01) ==
LOC: M ED 10:22 → EDBD 10:22 → M ED 17:30
DX: J44.1 Chronic obstructive pulmonary disease with (acute) exacerbation (principal); J09.X2 Influenza due to identified novel influenza A virus with other respiratory manifestations; Z91.19 Patient's noncompliance with other medical treatment and regimen; I10 Essential (primary) hypertension; K21.9 Gastro-esophageal reflux disease without esophagitis; Z87.891 Personal history of nicotine dependence

== ENCOUNTER → 2018-10-06 | Outpatient (REF) | payer MEDICARE, MEDICAID ==
[~2018-10-06] MED LIST changes: +ALB2.5NEB INH; +IPRA2IN NEB
[2018-10-06 10:56] LABS: MB/CK RELATIVE INDEX 8.97 (< OR =4); TROPONIN I 0.04 NG/ML (< 0.10)
== END ==
PROVIDERS: ATTEND Nurse Practitioner Family
DX: I10 Essential (primary) hypertension (principal)

== ENCOUNTER → 2018-10-14 | Outpatient (REF) | payer MEDICARE, MEDICAID ==
[2018-10-14 08:46] LABS: HEMATOCRIT 32.9 % (42.0-52.0); HEMOGLOBIN 10.8 g/dl (13.5-17.5); MEAN CORPUSCULAR HEMOGLOBIN 34.3 pg (27.0-33.0); MEAN CORPUSCULAR HGB CONC 32.8 g/dl (32.0-36.5); MEAN CORPUSCULAR VOLUME 104.4 fl (80.0-96.0); PLATELET COUNT, AUTOMATED 115 10^3/uL (150-450); RED BLOOD COUNT 3.15 10^6/uL (4.30-6.10); WHITE BLOOD COUNT 13.5 10^3/uL (4.0-10.0)
[2018-10-14 09:09] LABS: BLOOD UREA NITROGEN 25 MG/DL (7-18); CALCIUM LEVEL 8.3 MG/DL (8.8-10.2); CARBON DIOXIDE LEVEL 31 MEQ/L (21-32); CHLORIDE LEVEL 100 MEQ/L (98-107); GLOMERULAR FILTRATION RATE > 60.0 (>42); GLUCOSE, FASTING 88 MG/DL (70-100); POTASSIUM SERUM 3.7 MEQ/L (3.5-5.1); SODIUM LEVEL 138 MEQ/L (136-145)
== END ==
PROVIDERS: ATTEND Internal Medicine
DX: J44.9 Chronic obstructive pulmonary disease, unspecified (principal)

== ENCOUNTER → 2018-10-19 | Outpatient (REF) | payer MEDICARE, MEDICAID ==
--- NOTE | 2018-10-19 12:43 | REP ---
Chest, single AP view, patient sitting: Comparison is 09/30/2018. The patient is rotated. The lung higgins are clear. The cardiac size is normal. The eddie and mediastinum are unchanged, taking into consideration patient rotation. There is chronic deformity of the left humeral head and multiple metallic densities in the left shoulder, compatible with trauma. However, these findings are unchanged from a prior study of 2016. Impression: No acute cardiopulmonary findings are identified. Electronically Signed by Harman Dupree MD 10/19/2018 12:35 P
[2018-10-19 13:17] LABS: HEMOGLOBIN 11.8 g/dl (13.5-17.5); MEAN CORPUSCULAR HEMOGLOBIN 34.4 pg (27.0-33.0); MEAN CORPUSCULAR HGB CONC 32.8 g/dl (32.0-36.5); PLATELET COUNT, AUTOMATED 165 10^3/uL (150-450); RED BLOOD COUNT 3.43 10^6/uL (4.30-6.10); WHITE BLOOD COUNT 14.8 10^3/uL (4.0-10.0)
[2018-10-19 13:43] LABS: BLOOD UREA NITROGEN 23 MG/DL (7-18); CALCIUM LEVEL 8.3 MG/DL (8.8-10.2); CARBON DIOXIDE LEVEL 32 MEQ/L (21-32); CHLORIDE LEVEL 98 MEQ/L (98-107); CREATININE FOR GFR 0.98 MG/DL (0.70-1.30); GLOMERULAR FILTRATION RATE > 60.0 (>42); GLUCOSE, FASTING 105 MG/DL (70-100); NT-PRO BNP 682 PG/ML (<450); POTASSIUM SERUM 4.2 MEQ/L (3.5-5.1); SODIUM LEVEL 136 MEQ/L (136-145)
== END ==
PROVIDERS: ATTEND Internal Medicine
DX: J44.9 Chronic obstructive pulmonary disease, unspecified (principal)

== ENCOUNTER → 2018-10-27 | Outpatient (REF) | payer MEDICARE, MEDICAID ==
[2018-10-27 09:42] LABS: HEMATOCRIT 37.3 % (42.0-52.0); HEMOGLOBIN 12.3 g/dl (13.5-17.5); MEAN CORPUSCULAR HEMOGLOBIN 33.9 pg (27.0-33.0); MEAN CORPUSCULAR VOLUME 102.8 fl (80.0-96.0); PLATELET COUNT, AUTOMATED 245 10^3/uL (150-450); RED BLOOD COUNT 3.63 10^6/uL (4.30-6.10); WHITE BLOOD COUNT 19.5 10^3/uL (4.0-10.0)
[2018-10-27 09:58] LABS: BLOOD UREA NITROGEN 26 MG/DL (7-18); CALCIUM LEVEL 8.7 MG/DL (8.8-10.2); CARBON DIOXIDE LEVEL 30 MEQ/L (21-32); CHLORIDE LEVEL 98 MEQ/L (98-107); CREATININE FOR GFR 1.12 MG/DL (0.70-1.30); GLOMERULAR FILTRATION RATE > 60.0 (>42); GLUCOSE, FASTING 125 MG/DL (70-100); POTASSIUM SERUM 3.8 MEQ/L (3.5-5.1); SODIUM LEVEL 136 MEQ/L (136-145)
== END ==
PROVIDERS: ATTEND Internal Medicine
DX: J44.9 Chronic obstructive pulmonary disease, unspecified (principal)

== ENCOUNTER → 2018-11-24 | Outpatient (REF) | payer MEDICARE, MEDICAID ==
[2018-11-24 10:03] LABS: HEMATOCRIT 38.9 % (42.0-52.0); HEMOGLOBIN 12.8 g/dl (13.5-17.5); MEAN CORPUSCULAR HEMOGLOBIN 34.5 pg (27.0-33.0); MEAN CORPUSCULAR HGB CONC 32.9 g/dl (32.0-36.5); MEAN CORPUSCULAR VOLUME 104.9 fl (80.0-96.0); PLATELET COUNT, AUTOMATED 178 10^3/uL (150-450); RED BLOOD COUNT 3.71 10^6/uL (4.30-6.10); WHITE BLOOD COUNT 15.2 10^3/uL (4.0-10.0)
[2018-11-24 10:31] LABS: BLOOD UREA NITROGEN 32 MG/DL (7-18); CALCIUM LEVEL 8.6 MG/DL (8.8-10.2); CARBON DIOXIDE LEVEL 28 MEQ/L (21-32); CHLORIDE LEVEL 101 MEQ/L (98-107); CREATININE FOR GFR 1.04 MG/DL (0.70-1.30); GLOMERULAR FILTRATION RATE > 60.0 (>42); GLUCOSE, FASTING 121 MG/DL (70-100); SODIUM LEVEL 138 MEQ/L (136-145)
== END ==
PROVIDERS: ATTEND Internal Medicine
DX: J44.9 Chronic obstructive pulmonary disease, unspecified (principal)

== ENCOUNTER → 2019-02-26 | Outpatient (REF) | payer MEDICARE, MEDICAID ==
[~2019-02-26] MED LIST changes: -/TAMS4CA PO; -DAILTAB49 PO; +FLOM0.4C39 PO; +HYDR-3715 PO; -METO12TA PO; -MIRA255PW PO; -NORCOTAB PO; +POLY1POW4 PO; +SERT-141 PO; -SERT50TA PO; +TH DTAB2 PO
[2019-02-26 10:54] LABS: HEMATOCRIT 37.2 % (42.0-52.0); HEMOGLOBIN 12.3 g/dl (13.5-17.5); MEAN CORPUSCULAR HEMOGLOBIN 34.4 pg (27.0-33.0); MEAN CORPUSCULAR HGB CONC 33.1 g/dl (32.0-36.5); MEAN CORPUSCULAR VOLUME 103.9 fl (80.0-96.0); PLATELET COUNT, AUTOMATED 140 10^3/uL (150-450); RED BLOOD COUNT 3.58 10^6/uL (4.30-6.10); WHITE BLOOD COUNT 10.9 10^3/uL (4.0-10.0)
[2019-02-26 11:03] LABS: BLOOD UREA NITROGEN 29 MG/DL (7-18); CALCIUM LEVEL 8.6 MG/DL (8.8-10.2); CARBON DIOXIDE LEVEL 32 MEQ/L (21-32); CHLORIDE LEVEL 104 MEQ/L (98-107); GLOMERULAR FILTRATION RATE > 60.0 (>42); GLUCOSE, FASTING 121 MG/DL (70-100); NT-PRO BNP 222 PG/ML (<450); POTASSIUM SERUM 3.8 MEQ/L (3.5-5.1); SODIUM LEVEL 143 MEQ/L (136-145)
--- NOTE | 2019-02-26 14:09 | REP ---
CHEST X-RAY: Single view. HISTORY: Cough. COMPARISON CHEST X-RAY: October 19, 2018. FINDINGS: The left hemidiaphragm is slightly elevated unchanged. The lungs are symmetrically aerated and clear. Heart is not enlarged. Pulmonary vasculature is not increased. No infiltrate is seen. IMPRESSION: No infiltrate noted. Electronically Signed by Juan Jose Waite MD 02/26/2019 03:36 P
== END ==
PROVIDERS: ATTEND Internal Medicine
DX: R05 Cough (principal); I50.9 Heart failure, unspecified

== ENCOUNTER → 2019-07-27 | Outpatient (REF) | payer MEDICARE, MEDICAID ==
[~2019-07-27] MED LIST changes: -OMEP20CA3 PO; +OMEP20CA4 PO
[2019-07-27 10:00] LABS: HEMATOCRIT 38.5 % (42.0-52.0); HEMOGLOBIN 12.4 g/dl (13.5-17.5); MEAN CORPUSCULAR HEMOGLOBIN 34.5 pg (27.0-33.0); MEAN CORPUSCULAR HGB CONC 32.2 g/dl (32.0-36.5); MEAN CORPUSCULAR VOLUME 107.2 fl (80.0-96.0); PLATELET COUNT, AUTOMATED 120 10^3/uL (150-450); RED BLOOD COUNT 3.59 10^6/uL (4.30-6.10)
[2019-07-27 10:23] LABS: BLOOD UREA NITROGEN 28 MG/DL (7-18); CALCIUM LEVEL 8.6 MG/DL (8.8-10.2); CARBON DIOXIDE LEVEL 33 MEQ/L (21-32); CHLORIDE LEVEL 100 MEQ/L (98-107); CREATININE FOR GFR 1.15 MG/DL (0.70-1.30); GLOMERULAR FILTRATION RATE > 60.0 (>42); GLUCOSE, FASTING 123 MG/DL (70-100); POTASSIUM SERUM 3.9 MEQ/L (3.5-5.1); SODIUM LEVEL 138 MEQ/L (136-145)
== END ==
PROVIDERS: ATTEND Physician Assistant
DX: J44.9 Chronic obstructive pulmonary disease, unspecified (principal)

== ENCOUNTER → 2019-08-01 | Outpatient (REF) | payer MEDICARE, MEDICAID ==
[2019-08-01 18:56] LABS: HEMATOCRIT 39.9 % (42.0-52.0); HEMOGLOBIN 12.9 g/dl (13.5-17.5); MEAN CORPUSCULAR HEMOGLOBIN 35.1 pg (27.0-33.0); MEAN CORPUSCULAR HGB CONC 32.3 g/dl (32.0-36.5); MEAN CORPUSCULAR VOLUME 108.7 fl (80.0-96.0); PLATELET COUNT, AUTOMATED 151 10^3/uL (150-450); RED BLOOD COUNT 3.67 10^6/uL (4.30-6.10); WHITE BLOOD COUNT 11.9 10^3/uL (4.0-10.0)
[2019-08-01 19:00] LABS: AMORPHOUS SEDIMENT SMALL (NEGATIVE); APPEARANCE, URINE CLOUDY (CLEAR); BACTERIA, URINE AUTO 2+ (NEGATIVE); BILIRUBIN, URINE AUTO NEGATIVE (NEGATIVE); BLOOD, URINE BLOOD 3+ (NEGATIVE); COLOR, URINE YELLOW (YELLOW); GLUCOSE, URINE (UA) AUTO NEGATIVE (NEGATIVE); KETONE, URINE AUTO NEGATIVE (NEGATIVE); LEUKOCYTE ESTERASE, URINE AUTO 2+ (NEGATIVE); NITRITE, URINE AUTO NEGATIVE (NEGATIVE); PROTEIN, URINE AUTO NEGATIVE (NEGATIVE); RBC, URINE AUTO 91 /HPF (0-3); SPECIFIC GRAVITY URINE AUTO 1.008 (1.002-1.035); SQUAMOUS EPITHELIAL CELL UR AU 0 /HPF (0-6); UROBILINOGEN, URINE AUTO 0.2 mg/dL (0.0-2.0); WBC, URINE AUTO 38 /HPF (0-3)
== END ==
PROVIDERS: ATTEND Internal Medicine
DX: R31.9 Hematuria, unspecified (principal)

== ENCOUNTER → 2019-09-15 | Outpatient (REF) | payer MEDICARE, MEDICAID ==
[~2019-09-15] MED LIST changes: +OMEP1CAP73 PO; -OMEP20CA4 PO
--- NOTE | 2019-09-15 12:04 | REPPI ---
Portable chest x-ray: Single view. History: Cough. Comparison chest x-ray: February 26, 2019. Findings: The lungs are symmetrically aerated and free of infiltrate. Pleural angles are sharp. Heart size is borderline unchanged. No bony abnormalities seen. Impression: No infiltrate seen. Electronically Signed by Juan Jose Waite MD 09/15/2019 11:56 A
[2019-09-15 12:27] LABS: HEMATOCRIT 38.4 % (42.0-52.0); HEMOGLOBIN 12.4 g/dl (13.5-17.5); MEAN CORPUSCULAR HEMOGLOBIN 35.1 pg (27.0-33.0); MEAN CORPUSCULAR HGB CONC 32.3 g/dl (32.0-36.5); MEAN CORPUSCULAR VOLUME 108.8 fl (80.0-96.0); PLATELET COUNT, AUTOMATED 167 10^3/uL (150-450); RED BLOOD COUNT 3.53 10^6/uL (4.30-6.10); WHITE BLOOD COUNT 12.7 10^3/uL (4.0-10.0)
[2019-09-15 13:02] LABS: BLOOD UREA NITROGEN 26 MG/DL (7-18); CALCIUM LEVEL 8.4 MG/DL (8.8-10.2); CARBON DIOXIDE LEVEL 31 MEQ/L (21-32); CHLORIDE LEVEL 103 MEQ/L (98-107); CPK CREATINE PHOSPHOKINASE 77 U/L (39-308); CREATININE FOR GFR 1.02 MG/DL (0.70-1.30); GLOMERULAR FILTRATION RATE > 60.0 (>42); GLUCOSE, FASTING 102 MG/DL (70-100); POTASSIUM SERUM 4.4 MEQ/L (3.5-5.1); SODIUM LEVEL 141 MEQ/L (136-145)
[2019-09-15 14:15] LABS: ALBUMIN 3.4 GM/DL (3.2-5.2); ALT/SGPT 32 U/L (12-78); BILIRUBIN,DIRECT 0.1 MG/DL (0.0-0.2); BILIRUBIN,TOTAL 0.4 MG/DL (0.2-1.0); TOTAL PROTEIN 6.4 GM/DL (6.4-8.2)
[2019-09-15 17:25] LABS: VITAMIN B12 LEVEL > 2000 PG/ML (247-911)
== END ==
PROVIDERS: ATTEND Internal Medicine
DX: D64.9 Anemia, unspecified (principal); R05 Cough

== ENCOUNTER → 2019-10-01 | Outpatient (CLI) | payer MEDICARE, MEDICAID ==
[2019-10-01 13:44] LABS: BASO # 0.1 10^3/uL (0.0-0.2); BASO % 0.7 % (0.0-1.0); EOS # 0.1 10^3/uL (0.0-0.5); HEMATOCRIT 38.5 % (42.0-52.0); HEMOGLOBIN 12.1 g/dl (13.5-17.5); LYMPH # 2.3 10^3/uL (1.5-5.0); MEAN CORPUSCULAR HEMOGLOBIN 34.3 pg (27.0-33.0); MEAN CORPUSCULAR HGB CONC 31.4 g/dl (32.0-36.5); MEAN CORPUSCULAR VOLUME 109.1 fl (80.0-96.0); MONO # 0.8 10^3/uL (0.0-0.8); MONO % 6.4 % (0.0-5.0); NEUTROPHILS # 9.4 10^3/uL (1.5-8.5); NEUTROPHILS % 73.4 % (36.0-66.0); PLATELET COUNT, AUTOMATED 147 10^3/uL (150-450); RED BLOOD COUNT 3.53 10^6/uL (4.30-6.10); WHITE BLOOD COUNT 12.8 10^3/uL (4.0-10.0)
[2019-10-01 14:18] LABS: ALBUMIN 3.4 GM/DL (3.2-5.2); ALT/SGPT 23 U/L (12-78); AMYLASE 53 U/L (25-115); BILIRUBIN,DIRECT 0.2 MG/DL (0.0-0.2); BILIRUBIN,TOTAL 0.5 MG/DL (0.2-1.0); BLOOD UREA NITROGEN 24 MG/DL (7-18); CALCIUM LEVEL 8.8 MG/DL (8.8-10.2); CARBON DIOXIDE LEVEL 33 MEQ/L (21-32); CHLORIDE LEVEL 101 MEQ/L (98-107); CREATININE FOR GFR 1.04 MG/DL (0.70-1.30); GLOMERULAR FILTRATION RATE > 60.0 (>42); GLUCOSE, FASTING 117 MG/DL (70-100); LIPASE 100 U/L (73-393); POTASSIUM SERUM 4.3 MEQ/L (3.5-5.1); SODIUM LEVEL 138 MEQ/L (136-145); TOTAL PROTEIN 6.5 GM/DL (6.4-8.2)
--- NOTE | 2019-10-01 14:24 | REP ---
CT of the abdomen pelvis without IV and oral contrast for abdominal pain: Comparison is 03/31/2070. There are coarse interstitial markings in the lower lobe of the left lung, bronchiectasis versus fibrosis versus pneumonitis, not present previously. There is a 15 mm pleural-based nodular density in the deep posterior sulcus of the right lower lobe, not present previously. This could represent a focal atelectasis versus a new lung nodule. The unenhanced hepatic parenchyma is unremarkable. There are faintly visible small calculi in the gallbladder neck. The gallbladder is otherwise unremarkable. The pancreas and spleen are normal size and unremarkable. Previously there was a 5.8 cm left renal cyst. This cyst today measures 3.5 cm. There is a 2.3 cm right renal upper pole cyst. There is a 2.4 cm right renal lower pole cyst. These are unchanged. The kidneys otherwise unremarkable. The abdominal aorta is unremarkable except for calcified atheroma. There is no bowel distension or obstruction. There is diverticulosis of the ascending colon, transverse colon, descending colon and sigmoid colon, not significantly changed. There is no CT evidence of diverticulitis. Pelvis: The appendix is unremarkable. There is no ascites or adenopathy. There is a Mcfadden catheter in the bladder. This is unchanged. There is degenerative disc disease in the lumbar spine, not significantly changed. Impression: Heavy interstitial markings in the lower lobe of the left lung as an interval change as described. New nodular density in the deep posterior sulcus of the right lower lobe. Cholelithiasis without CT evidence of acute cholecystitis or biliary duct dilatation. Bilateral renal cortical cysts as described. Diverticulosis unit dorsalis. No diverticulitis. Urinary bladder. Mcfadden catheter. No ascites, adenopathy or mass. No bowel distension or obstruction. Electronically Signed by Harman Dupree MD 10/01/2019 02:15 P
== END ==
LOC: M RAD 12:27
PROVIDERS: ATTEND Physician Assistant
DX: R91.8 Other nonspecific abnormal finding of lung field (principal); K57.30 Diverticulosis of large intestine without perforation or abscess without bleeding; K80.20 Calculus of gallbladder without cholecystitis without obstruction; N28.1 Cyst of kidney, acquired; R10.9 Unspecified abdominal pain; Z96.0 Presence of urogenital implants
CPT/HCPCS: 36415; 51703; 51798; 74176; 80053; 81002; 82150; 82248; 83690; 85025; 87088; 87186; G0463

== ENCOUNTER → 2019-10-01 | Outpatient (REF) | payer MEDICARE, MEDICAID | LOC: M SMT 17:29 | PROVIDERS: ATTEND Urology | DX: R33.9 Retention of urine, unspecified (principal) ==

== ENCOUNTER → 2019-11-10 | Outpatient (REF) | payer MEDICARE, MEDICAID ==
[2019-11-10 17:21] LABS: HEMATOCRIT 42.9 % (42.0-52.0); MEAN CORPUSCULAR HEMOGLOBIN 34.7 pg (27.0-33.0); MEAN CORPUSCULAR HGB CONC 32.6 g/dl (32.0-36.5); MEAN CORPUSCULAR VOLUME 106.2 fl (80.0-96.0); PLATELET COUNT, AUTOMATED 156 10^3/uL (150-450); RED BLOOD COUNT 4.04 10^6/uL (4.30-6.10); WHITE BLOOD COUNT 10.4 10^3/uL (4.0-10.0)
[2019-11-10 17:54] LABS: CALCIUM LEVEL 8.4 MG/DL (8.8-10.2); CREATININE FOR GFR 1.27 MG/DL (0.70-1.30); GLOMERULAR FILTRATION RATE 58.5 (>42); POTASSIUM SERUM 4.1 MEQ/L (3.5-5.1); THYROID STIMULATING HORMONE 1.09 uIU/ML (0.358-3.740)
== END ==
PROVIDERS: ATTEND Internal Medicine
DX: R53.83 Other fatigue (principal)

== ENCOUNTER → 2019-12-03 | Outpatient (REF) ==
[2019-12-03 10:05] LABS: HEMATOCRIT 34.6 % (42.0-52.0); HEMOGLOBIN 11.5 g/dl (13.5-17.5); MEAN CORPUSCULAR HGB CONC 33.2 g/dl (32.0-36.5); MEAN CORPUSCULAR VOLUME 105.2 fl (80.0-96.0); PLATELET COUNT, AUTOMATED 114 10^3/uL (150-450); RED BLOOD COUNT 3.29 10^6/uL (4.30-6.10); WHITE BLOOD COUNT 13.7 10^3/uL (4.0-10.0)
[2019-12-03 10:55] LABS: BLOOD UREA NITROGEN 27 MG/DL (7-18); CALCIUM LEVEL 8.4 MG/DL (8.8-10.2); CARBON DIOXIDE LEVEL 33 MEQ/L (21-32); CHLORIDE LEVEL 101 MEQ/L (98-107); CREATININE FOR GFR 0.78 MG/DL (0.70-1.30); GLOMERULAR FILTRATION RATE > 60.0 (>42); GLUCOSE, FASTING 110 MG/DL (70-100); POTASSIUM SERUM 3.7 MEQ/L (3.5-5.1); SODIUM LEVEL 139 MEQ/L (136-145)
== END ==
PROVIDERS: ATTEND Internal Medicine
DX: R53.83 Other fatigue (principal)

== ENCOUNTER → 2019-12-04 | Outpatient (REF) ==
[2019-12-04 13:11] LABS: HEMATOCRIT 36.4 % (42.0-52.0); HEMOGLOBIN 11.8 g/dl (13.5-17.5); MEAN CORPUSCULAR HEMOGLOBIN 34.2 pg (27.0-33.0); MEAN CORPUSCULAR HGB CONC 32.4 g/dl (32.0-36.5); MEAN CORPUSCULAR VOLUME 105.5 fl (80.0-96.0); PLATELET COUNT, AUTOMATED 121 10^3/uL (150-450); RED BLOOD COUNT 3.45 10^6/uL (4.30-6.10); WHITE BLOOD COUNT 8.2 10^3/uL (4.0-10.0)
== END ==
PROVIDERS: ATTEND Internal Medicine
DX: D72.829 Elevated white blood cell count, unspecified (principal)

== ENCOUNTER → 2019-12-29 | Outpatient (REF) | payer MEDICARE, MEDICAID ==
--- NOTE | 2019-12-29 17:08 | REPPI ---
RIGHT ELBOW, TWO VIEWS: Two views of right elbow performed. No fracture or dislocation is seen. There is mild olecranon spurring. There is mild soft tissue swelling both superior and inferior to the olecranon, which I suspect represents bursitis. Electronically Signed by Harman Brar MD 12/30/2019 12:48 P
== END ==
PROVIDERS: ATTEND Internal Medicine
DX: M79.89 Other specified soft tissue disorders (principal)

== ENCOUNTER → 2020-01-25 | Outpatient (REF) ==
[~2020-01-25] MED LIST changes: +ACET-907 PO; +ACET650S3 PR; +ANTI2CAP PO; +ASPI-161 PO; +ASPI1CHW3 PO; +ASPI81TA86 PO; +BISA10SU20 PR; +BREO1INH3 INH; +EUCECRE8 TOP; +FERR1TAB8 PO; +FLEEENE12 PR; +IPRA2IN INH; +MELA1TAB9 PO; +MILKSUS3 PO; +PANT40TA29 PO; +PRED5TA PO; +SUCR1TA PO
== END ==
PROVIDERS: ATTEND Internal Medicine
DX: Z03.818 Encounter for observation for suspected exposure to other biological agents ruled out (principal)

== ENCOUNTER → 2020-02-22 | Outpatient (REF) | payer MEDICARE, MEDICAID ==
[~2020-02-22] MED LIST changes: -ACET-907 PO; -ACET650S3 PR; -ANTI2CAP PO; -ASPI-161 PO; -ASPI1CHW3 PO; -ASPI81TA86 PO; -BISA10SU20 PR; -BREO1INH3 INH; -EUCECRE8 TOP; -FERR1TAB8 PO; -FLEEENE12 PR; -IPRA2IN INH; -MELA1TAB9 PO; -MILKSUS3 PO; -PANT40TA29 PO; -PRED5TA PO; -SUCR1TA PO
[2020-02-22 13:11] LABS: FERRITIN 24 NG/ML (26-388); IRON (FE) 294 UG/DL (65-175); TOTAL IRON BINDING CAPACITY 303 UG/DL (250-450)
[2020-02-22 13:18] LABS: FOLATE > 24.0 NG/ML (>5.4); VITAMIN B12 LEVEL 1325 PG/ML (247-911)
== END ==
PROVIDERS: ATTEND Nurse Practitioner Adult Health
DX: F10.11 Alcohol abuse, in remission (principal); D50.9 Iron deficiency anemia, unspecified; Z79.899 Other long term (current) drug therapy

== ENCOUNTER 2020-05-02 21:24 | Emergency (ER) | payer MEDICARE, MEDICAID ==
[~2020-05-02] VITALS: Ht 182.9 cm; Wt 97.2 kg
[~2020-05-02 21:24] MED LIST changes: +ASPI81TA86 PO
[2020-05-02 22:51] VITALS: BP 144/68
[2020-05-02] MEDS ORDERED: IPRA2IN INH (23:16)
[2020-05-02] MEDS ORDERED: BREO1INH3 INH (23:16)
[2020-05-02] MEDS ORDERED: MILKSUS3 PO (23:16)
[2020-05-02] MEDS ORDERED: FERR1TAB8 PO (23:16)
[2020-05-02] MEDS ORDERED: BISA10SU20 PR (23:16)
[2020-05-02] MEDS ORDERED: FLEEENE12 PR (23:16)
[2020-05-02] MEDS ORDERED: ANTI2CAP PO (23:16)
[2020-05-02] MEDS ORDERED: ACET-907 PO (23:16)
[2020-05-02] MEDS ORDERED: ASPI1CHW3 PO (23:16)
[2020-05-02] MEDS ORDERED: EUCECRE8 TOP (23:16)
[2020-05-02] MEDS ORDERED: PRED5TA PO (23:16)
[2020-05-02] MEDS ORDERED: ACET650S3 PR (23:16)
[2020-05-02] MEDS ORDERED: MELA1TAB9 PO (23:16)
[2020-05-02] MEDS ORDERED: ALBU83IN INH (23:16)
== END 2020-05-03 00:23 | disposition home or self-care (01) ==
LOC: M ED 21:24
DX: R33.9 Retention of urine, unspecified (principal); T83.098A Other mechanical complication of other urinary catheter, initial encounter; X58.XXXA Exposure to other specified factors, initial encounter; Y92.89 Other specified places as the place of occurrence of the external cause; I10 Essential (primary) hypertension; J44.9 Chronic obstructive pulmonary disease, unspecified; J45.909 Unspecified asthma, uncomplicated; N40.0 Benign prostatic hyperplasia without lower urinary tract symptoms; Z79.899 Other long term (current) drug therapy

== ENCOUNTER → 2020-07-20 | Outpatient (REF) ==
[~2020-07-20] MED LIST changes: +ACET-907 PO; +ACET650S3 PR; +ANTI2CAP PO; +ASPI1CHW3 PO; +BISA10SU20 PR; +BREO1INH3 INH; +EUCECRE8 TOP; +FERR1TAB8 PO; +FLEEENE12 PR; +IPRA2IN INH; +MELA1TAB9 PO; +MILKSUS3 PO; +PRED5TA PO
== END ==
PROVIDERS: ATTEND Internal Medicine
DX: Z20.828 Contact with and (suspected) exposure to other viral communicable diseases (principal)

== ENCOUNTER → 2020-07-25 | Outpatient (REF) | payer MEDICARE, MEDICAID ==
[2020-07-25 13:02] LABS: PERCENT SATURATION 11.1 % (19.7-50.0)
== END ==
PROVIDERS: ATTEND Nurse Practitioner Adult Health
DX: D50.9 Iron deficiency anemia, unspecified (principal)

== ENCOUNTER → 2020-07-27 | Outpatient (REF) | payer MEDICARE, MEDICAID ==
[~2020-07-27] MED LIST changes: +ASPI-161 PO; +PANT40TA29 PO; +SUCR1TA PO
== END ==
LOC: EDSTATUS 09-05 13:47
PROVIDERS: ATTEND Internal Medicine
DX: Z20.828 Contact with and (suspected) exposure to other viral communicable diseases (principal)

== ENCOUNTER → 2020-08-02 | Outpatient (REF) | payer MEDICARE, MEDICAID | PROVIDERS: ATTEND Internal Medicine | DX: Z20.828 Contact with and (suspected) exposure to other viral communicable diseases (principal) ==

== ENCOUNTER → 2020-08-20 | Outpatient (REF) | payer MEDICARE, MEDICAID ==
[~2020-08-20] MED LIST changes: -ASPI-161 PO; -PANT40TA29 PO; -SUCR1TA PO
== END ==
PROVIDERS: ATTEND Internal Medicine
DX: Z20.828 Contact with and (suspected) exposure to other viral communicable diseases (principal)

== ENCOUNTER → 2020-08-24 | Outpatient (REF) | payer MEDICAID, MEDICARE ==
[~2020-08-24] MED LIST changes: +ASPI-161 PO; +PANT40TA29 PO; +SUCR1TA PO
== END ==
PROVIDERS: ATTEND Internal Medicine
DX: Z20.828 Contact with and (suspected) exposure to other viral communicable diseases (principal)

== ENCOUNTER → 2020-08-30 | Outpatient (REF) | PROVIDERS: ATTEND Internal Medicine | DX: Z20.828 Contact with and (suspected) exposure to other viral communicable diseases (principal) ==

== ENCOUNTER → 2020-09-05 | Outpatient (REF) | PROVIDERS: ATTEND Internal Medicine | DX: Z20.828 Contact with and (suspected) exposure to other viral communicable diseases (principal) ==

== ENCOUNTER 2020-09-07 14:20 | Inpatient (IN) | payer MEDICARE, MEDICAID ==
[2020-09-07] VITALS (12 sets, daily range): BP systolic 116–144; BP diastolic 57–84
[~2020-09-07] VITALS: Ht 182.9 cm; Wt 92.6 kg
[~2020-09-07 14:20] MED LIST changes: -ASPI-161 PO; -PANT40TA29 PO; -SUCR1TA PO
[2020-09-07] MEDS ORDERED: NS 1,000 ML IV SCH (14:51)
[2020-09-07] MEDS ORDERED: PANTOPRAZOLE 40MG VIAL (C9113 PER 1) IV ONE (15:00)
[2020-09-07 15:17] LABS: BASO % 0.3 % (0.0-1.0); EOS % 0.4 % (0.0-3.0); LYMPH # 2.5 10^3/uL (1.5-5.0); LYMPH % 23.2 % (24.0-44.0); MEAN CORPUSCULAR HEMOGLOBIN 31.8 pg (27.0-33.0); MEAN CORPUSCULAR HGB CONC 28.4 g/dl (32.0-36.5); MEAN CORPUSCULAR VOLUME 112.1 fl (80.0-96.0); MONO % 9.4 % (0.0-5.0); NEUTROPHILS # 7.1 10^3/uL (1.5-8.5); NEUTROPHILS % 65.2 % (36.0-66.0); PLATELET COUNT, AUTOMATED 249 10^3/uL (150-450); RED BLOOD COUNT 1.32 10^6/uL (4.30-6.10); WHITE BLOOD COUNT 10.9 10^3/uL (4.0-10.0)
[2020-09-07 15:29] LABS: HEMOGLOBIN 4.2 g/dl (13.5-17.5)
[2020-09-07 15:30] LABS: HEMATOCRIT 14.8 % (42.0-52.0)
[2020-09-07 15:39] LABS: INR 0.96
[2020-09-07 15:46] LABS: ALBUMIN 2.8 GM/DL (3.2-5.2); BILIRUBIN,DIRECT 0.2 MG/DL (0.0-0.2); BILIRUBIN,TOTAL 0.4 MG/DL (0.2-1.0); CALCIUM LEVEL 8.2 MG/DL (8.8-10.2); CREATININE FOR GFR 1.35 MG/DL (0.70-1.30); GLOMERULAR FILTRATION RATE 54.4 (>42); MB/CK RELATIVE INDEX 2.06 (< OR =4); POTASSIUM SERUM 3.2 MEQ/L (3.5-5.1); TROPONIN I 0.03 NG/ML (< 0.10)
[2020-09-07] MEDS ORDERED: ISOVUE-370 76% 100ML VIAL As Ordered ONE (15:57)
--- NOTE | 2020-09-07 16:32 | REP ---
INDICATION: gi bleed. COMPARISON: 10/01/2019 TECHNIQUE: Axial contrast-enhanced images from the lung bases to the pubic symphysis using 100 cc Isovue 370 intravenous contrast material. Coronal and sagittal reformations obtained. This CT examination was performed using the following dose reduction techniques: Automated exposure control, adjustment of mA and/or kv according to the patient's size, and the use of iterative reconstruction technique. FINDINGS: Liver, spleen, pancreas, gallbladder, and bilateral adrenal glands are normal. Kidneys demonstrate stable hypodensities compatible with cysts. The enteric system includes paraesophageal gastric hiatal hernia. No evidence for bowel obstruction or acute inflammatory process. Colonic diverticulosis noted without acute diverticulitis. There is a left inguinal hernia which contains nonobstructed loop of sigmoid colon and mesenteric fat. Normal terminal ileum and appendix identified in the right lower quadrant. Pelvis demonstrates Mcfadden catheter in collapsed bladder and mildly prominent prostate gland with coarse calcifications. No ascites. No free air. No intraperitoneal or retroperitoneal adenopathy. Abdominal aorta and vasculature demonstrate atherosclerotic changes without aneurysm or dissection. Musculoskeletal structures are intact and without acute osseous abnormality. Lung bases demonstrate mild bibasilar atelectasis (left greater than right). IMPRESSION: 1. No obvious acute abdominopelvic pathology appreciated. 2. Colonic diverticulosis and nonobstructed left inguinal hernia containing nonobstructed sigmoid colon. 3. Moderate paraesophageal gastric hiatal hernia. 4. No free air. No free fluid. No focal inflammatory stranding. No adenopathy. 5. Chronic nonacute findings as above. 6. Mild bibasilar atelectasis. <Electronically signed by Pradeep Carrion > 09/07/20 [id number]
[2020-09-07 16:42] LABS: RSV AMPLIFICATION NEGATIVE (NEGATIVE)
[2020-09-07] MEDS ORDERED: ACETAMINOPHEN TAB 650MG DOSE (2X325MG) PO PRN (17:30)
[2020-09-07] MEDS ORDERED: ASPI-161 PO (17:40)
--- NOTE | 2020-09-07 17:41 | HPEPDOC ---
[facility] Medical History & Physical Date of Admission Sep 07, 2020 Date of Service: Sep 07, 2020 History and Physical Chief complaint: Presented to the ER after he was noted to have a low hemoglobin History of present illness: Patient is a 80-year-old male who presented to [facility] from [facility] after he was noted to have a Hg of 3.7. Patient reported that she was expressing shortness of breath on exertion and hemoglobin was checked. Upon arrival to emergency room, patient had a repeat CBC collected which revealed a hemoglobin of 4.2. Patient denies any lightheadedness or dizziness. Denies any chest pain or palpitations. Denies any cough. Patient does experience shortness of breath which is worse when he exerts himself. Patient denies any nausea, vomiting, abdominal pain, constipation or diarrhea. Reports his last bowel movement was yesterday. Patient reports that his bowel movement may have been dark. Patient denies any blood in his Chronic Mcfadden catheter. Patient reports a poor appetite. Does report some weight loss. Past Medical History: HTN COPD on O2 Depression BPH / Urinary retention (s/p Chronic Mcfadden catheter) Hx of PVC GERD Past Surgical History: Hx of Pyloric stenosis - s/p repair (Child) Allergies: See below Medications: See below Family History: - No history of malignancies Social History: - Denies the use of illicit drugs; patient reports that he quit smoking approximately 10 years ago but was a smoker of [address] 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 Review of Systems: 10 point review of systems complete, all negative otherwise stated in HPI Physical exam: - Vitals: BP [116/57], HR [67], RR [20], Sat [98%NC2L], Temp [97.4F] - General: Lying in bed, No acute distress, Speaking in full sentences, AAOx3 - HEENT: NC, AT, PERRLA - CVS: RRR, +S1S2 - Lungs: Fair air entry bilaterally, No appreciable wheezing / rales / rhonchi - Abdomen: Soft, Non-distended, Some tenderness appreciated at epigastric region - Extremities: No lower extremity edema, No calf tenderness - Neuro: No focal motor or sensory deficit - Skin: No visible rashes Labs: See below Imaging: CT abdomen / pelvis with IV contrast 09/07: 1. No obvious acute abdominopelvic pathology appreciated. 2. Colonic diverticulosis and non-obstructed left inguinal hernia containing non-obstructed sigmoid colon. 3. Moderate paraesophageal gastric hiatal hernia. 4. No free air. No free fluid. No focal inflammatory stranding. No adenopathy. 5. Chronic nonacute findings as above. 6. Mild bibasilar atelectasis. EKG: See below Assessment and Plan: Symptomatic anemia - likely 2/2 GI etiology - possibly 2/2 upper GI source - Patient presented to the ER after he was noted to have a low hemoglobin while at [facility] - Patient reports shortness of breath with exertion - Patient is currently hemodynamically stable and afebrile - Hg baseline of ~ 12; Currently 4.2 - Will transfuse a total of 4 units PRBC - Will trend H&H - Will start Protonix and Carafate - Will hold ASA - Discussed and consulted Dr. Nye; will evaluate for possible endoscopy - Will c/w clear liquid diet alone for now Lactic acidosis - possibly 2/2 volume loss - Will c/w blood product infusion Elevated Cr - likely 2/2 pre-renal etiology secondary to volume loss - Baseline creatinine approximately 0.7-1.2 - Creatinine on admission of 1.35 - Will continue with blood product infusion Leukocytosis - likely 2/2 reactive etiology - ROS negative - Hemodynamically stable / afebrile - Will hold off on antibiotics HTN - SPB of 110s - Joe hold Metoprolol and Furosemide for now Chronic COPD / Chronic hypoxic respiratory failure - No evidence of exacerbation - Will c/w inhaled therapy as ordered and chronic prednisone - c/w home Oxygen Depression - c/w Sertraline BPH / Urinary retention - s/p Chronic Mcfadden catheter - Follows with Dr. Guerra as outpatient Hx of PVC - Will hold ASA GERD - Will hold Omeprazole / Replace with Protonix - See above DVT prophylaxis - Will start TEDs/Sequentials Code status: - DNR / DNI - MOLST form on file Vital Signs Vital Signs Date Time Temp Pulse Resp B/P (MAP) Pulse Ox O2 Delivery O2 Flow Rate FiO2 09/07/20 17:31 97.1 67 21 140/62 100 Room Air 2.0 Laboratory Data Labs 24H Laboratory Tests 2 09/07/20 15:05: Immature Granulocyte % (Auto) 1.5, Neutrophils (%) (Auto) 65.2, Lymphocytes (%) (Auto) 23.2L, Monocytes (%) (Auto) 9.4H, Eosinophils (%) (Auto) 0.4, Basophils (%) (Auto) 0.3, Neutrophils # (Auto) 7.1, Lymphocytes # (Auto) 2.5, Monocytes # (Auto) 1.0H, Eosinophils # (Auto) 0.0, Basophils # (Auto) 0.0, Nucleated Red Blood Cells % (auto) 0.5H, Prothrombin Time 13.0, Prothromb Time International Ratio 0.96, Anion Gap 6L, Glomerular Filtration Rate 54.4, Lactic Acid Level 2.4*H, Calcium Level 8.2L, Total Bilirubin 0.4, Direct Bilirubin 0.2, Aspartate Amino Transf (AST/SGOT) 11, Alanine Aminotransferase (ALT/SGPT) 14, Alkaline Phosphatase 76, Total Creatine Kinase 97, Creatine Kinase MB 2.0, Creatine Kinase MB Relative Index 2.06, Troponin I 0.03, Total Protein 6.0L, Albumin 2.8L, Albumin/Globulin Ratio 0.9, Lipase 142 09/07/20 15:58: Coronavirus (COVID-19)(PCR) NEGATIVE, Influenza Type A (RT-PCR) NEGATIVE, Influenza Type B (RT-PCR) NEGATIVE, Respiratory Syncytial Virus (PCR) NEGATIVE 09/07/20 16:54: Urine Color YELLOW, Urine Appearance HAZY, Urine pH 5.0, Urine Specific [place] 1.011, Urine Protein NEGATIVE, Urine Glucose (UA) NEGATIVE, Urine Ketones NEGATIVE, Urine Blood 1+H, Urine Nitrite NEGATIVE, Urine Bilirubin NEGATIVE, Urine Urobilinogen 0.2, Urine Leukocyte Esterase 2+H, Urine WBC (Auto) 42H, Urine RBC (Auto) 4H, Urine Hyaline Casts (Auto) 8, Urine Bacteria (Auto) 3+H, Urine Squamous Epithelial Cells 0, Urine Mucus (Auto) SMALL, Urine Sperm (Auto) CBC/BMP Laboratory Tests 09/07/20 15:05 Microbiology Microbiology 09/07/20 Urine Culture, Received Pending Home Medications Scheduled Acetylcysteine (Acetylcysteine) 800 Mg/4 Ml Jennifer, 400 MG INH BID 0800, 1800 Albuterol Sulf (Albuterol Sulfate) 2.5 Mg/3 Ml Nebu, 2.5 MG INH BID 0800, 1800 Aspirin (Aspirin EC) 81 Mg Tablet.dr, 81 MG PO DAILY Ferrous Sulfate (Ferrous Sulfate) 325 Mg Tablet, 325 MG PO Q2D Fluticasone/Vilanterol (Breo Ellipta 200-25 Mcg INH) 1 Each Blst.w.dev, 1 PUFF INH DAILY Furosemide (Lasix) 40 Mg Tab, 40 MG PO DAILY Melatonin (Melatonin) 5 Mg Tablet, 5 MG PO QHS Metoprolol Tartrate (Metoprolol Tartrate) 25 Mg Tab, 12.5 MG PO BID Prednisone (Prednisone) 5 Mg Tablet, 5 MG PO DAILY Sennosides/Docusate Sodium (Senokot-S Tablet) 1 Tab Tab, 1 TAB PO BID Sertraline HCl (Sertraline HCl) 100 Mg Tab, 150 MG PO DAILY Scheduled PRN Acetaminophen (Tylenol) 325 Mg Tablet, 650 MG PO Q4H PRN for PAIN / FEVER Albuterol Sulf (Albuterol Sulfate) 2.5 Mg/3 Ml Vial.neb, 2.5 MG INH Q2H PRN for SOB/WHEEZING Bisacodyl (Bisacodyl) 10 Mg Supp.rect, 10 MG VT DAILY PRN for CONSTIPATION Magnesium Hydroxide (Milk of Magnesia) 400 Mg/5 Ml Oral.susp, 30 ML PO DAILY PRN for CONSTIPATION Sodium Phosphate,[place]-Dibasic (Fleet Enema) 133 Ml Enema, 1 LEENA VT DAILY PRN for CONSTIPATION Allergies Coded Allergies: No Known Allergies (Verified , 09/30/18) BRISEIDA ALBRECHT MD Sep 07, 2020 17:41
[2020-09-07] MEDS ORDERED: ALBUTEROL SULFATE 2.5 MG/0.5 ML INH NEB SOLN INH PRN (18:00)
[2020-09-07] MEDS: SUCRALFATE 1 GM TAB PO SCH (19:51)
[2020-09-07] MEDS: ALBUTEROL SULFATE 2.5 MG/0.5 ML INH NEB SOLN INH SCH (20:00)
[2020-09-07] MEDS: ACETYLCYSTEINE 20% 4 ML VIAL (200MG/ML) INH SCH (20:00)
[2020-09-07] MEDS: ADVAIR HFA 230/21MCG INHALER INH SCH (20:54)
[2020-09-08] VITALS (8 sets, daily range): BP systolic 109–139; BP diastolic 53–70
[2020-09-08] MEDS: SUCRALFATE 1 GM TAB PO SCH ×3 (00:33→11:16)
[2020-09-08] MEDS ORDERED: PANTOPRAZOLE 40MG VIAL (C9113 PER 1) IV SCH (03:00)
[2020-09-08 05:51] LABS: BASO # 0.1 10^3/uL (0.0-0.2); BASO % 0.4 % (0.0-1.0); EOS # 0.3 10^3/uL (0.0-0.5); EOS % 2.2 % (0.0-3.0); HEMATOCRIT 30.4 % (42.0-52.0); LYMPH # 4.2 10^3/uL (1.5-5.0); LYMPH % 36.6 % (24.0-44.0); MEAN CORPUSCULAR HEMOGLOBIN 30.4 pg (27.0-33.0); MEAN CORPUSCULAR HGB CONC 31.3 g/dl (32.0-36.5); MEAN CORPUSCULAR VOLUME 97.1 fl (80.0-96.0); MONO % 8.3 % (0.0-5.0); NEUTROPHILS % 51.3 % (36.0-66.0); PLATELET COUNT, AUTOMATED 202 10^3/uL (150-450); RED BLOOD COUNT 3.13 10^6/uL (4.30-6.10); WHITE BLOOD COUNT 11.6 10^3/uL (4.0-10.0)
[2020-09-08 05:53] LABS: HEMOGLOBIN 9.5 g/dl (13.5-17.5)
[2020-09-08 06:08] LABS: BLOOD UREA NITROGEN 28 MG/DL (7-18); CALCIUM LEVEL 7.6 MG/DL (8.8-10.2); CARBON DIOXIDE LEVEL 33 MEQ/L (21-32); CHLORIDE LEVEL 97 MEQ/L (98-107); CREATININE FOR GFR 1.01 MG/DL (0.70-1.30); GLOMERULAR FILTRATION RATE > 60.0 (>42); GLUCOSE, FASTING 106 MG/DL (70-100); MAGNESIUM LEVEL 2.3 MG/DL (1.8-2.4); POTASSIUM SERUM 2.9 MEQ/L (3.5-5.1); SODIUM LEVEL 135 MEQ/L (136-145)
[2020-09-08] MEDS ORDERED: POTASSIUM CHLORIDE 10 MEQ SR TABLET PO ONE ×2 (07:00→07:15)
[2020-09-08] MEDS: ALBUTEROL SULFATE 2.5 MG/0.5 ML INH NEB SOLN INH SCH (07:21)
[2020-09-08] MEDS: ACETYLCYSTEINE 20% 4 ML VIAL (200MG/ML) INH SCH (07:21)
[2020-09-08] MEDS: ADVAIR HFA 230/21MCG INHALER INH SCH (07:22)
--- NOTE | 2020-09-08 08:03 | ECGEPIP ---
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
[2020-09-08] MEDS ORDERED: predniSONE 5 MG TAB PO SCH (09:00)
[2020-09-08] MEDS ORDERED: SENOKOT S TAB PO SCH (09:00)
[2020-09-08] MEDS ORDERED: FUROSEMIDE 40 MG TAB PO SCH (09:00)
[2020-09-08] MEDS ORDERED: SERTRALINE HCL 50 MG TAB PO SCH (09:00)
[2020-09-08] MEDS ORDERED: METOPROLOL TART 25 MG TABLET PO SCH (09:00)
--- NOTE | 2020-09-08 10:37 | CR ---
CONSULTATION DATE: 09/08/2019 REASON FOR CONSULTATION: Anemia of undetermined etiology. HISTORY OF PRESENT ILLNESS: The patient is a 80-year-old male with severe COPD, O2 dependent COPD, a patient of long-term care who presents for shortness of breath and has had anemia of undetermined etiology. The patient was brought to the Emergency Room and I was asked to see the patient for recommendations. The patient has not had a previous colonoscopy and most importantly the patient refuses any endoscopy at this time. PAST MEDICAL HISTORY: Significant for hypertension, COPD, depression, BPH, history of peripheral vascular disease, gastroesophageal reflux disease. PHYSICAL EXAMINATION: LUNGS: Decreased breath sounds posteriorly. HEART: Regular. ABDOMEN: Tenderness throughout the abdomen although he states this is chronic abdominal tenderness that he has. On his CT scan he does have a paraesophageal hernia present. No other significant abnormality was appreciated. IMPRESSION/PLAN: Patient has anemia of undetermined etiology. He obviously could have a GI issue and the most likely etiology is an upper GI issue and with the paraesophageal hernia that may be contributing to this as well. Appropriate treatment as you are doing with the proton pumps and Carafate is recommended and given the patient refuses endoscopy, if further workup is required or desired, then proceeding with an upper GI is not unreasonable, however I would still empirically treat him with proton pump inhibitors and Carafate. If, however his hematocrit continues to decrease the primary care discuss other options with him whether he would prefer to be placed on Hospice/Palliative Care if he still does not desire colonoscopy/upper endoscopy. Otherwise, I will sign off and please contact me if you would like to discuss his issues further.
[2020-09-08] MEDS ORDERED: SUCR1TA PO (12:08)
[2020-09-08] MEDS ORDERED: PANT40TA29 PO (12:08)
--- NOTE | 2020-09-08 12:21 | DS.PDOC ---
Discharge Summary General Date of Admission Sep 07, 2020 at 17:21 Date of Discharge 09/08/2020 Discharge Summary PROCEDURES PERFORMED DURING STAY: [None]. ADMITTING DIAGNOSES / DISCHARGE DIAGNOSES: s/p Symptomatic anemia - likely 2/2 GI etiology - possibly 2/2 upper GI source s/p Lactic acidosis - possibly 2/2 volume loss s/p Elevated Cr - likely 2/2 pre-renal etiology secondary to volume loss Leukocytosis - likely 2/2 reactive etiology HTN Chronic COPD / Chronic hypoxic respiratory failure Depression BPH / Urinary retention Hx of PVC GERD DVT prophylaxis COMPLICATIONS/CHIEF COMPLAINT: Anemia HISTORY OF PRESENT ILLNESS: Patient is a 80-year-old male who presented to [facility] from [facility] after he was noted to have a Hg of 3.7. Patient reported that she was expressing shortness of breath on exertion and hemoglobin was checked. Upon arrival to emergency room, patient had a repeat CBC collected which revealed a hemoglobin of 4.2. Patient denies any lightheadedness or dizziness. Denies any chest pain or palpitations. Denies any cough. Patient does experience shortness of breath which is worse when he exerts himself. Patient denies any nausea, vomiting, abdominal pain, constipation or diarrhea. Reports his last bowel movement was yesterday. Patient reports that his bowel movement may have been dark. Patient was admitted to hospital service for further evaluation and treatment. General surgery was called on consultation for possible endoscopy. HOSPITAL COURSE: s/p Symptomatic anemia - likely 2/2 GI etiology - possibly 2/2 upper GI source - Patient presented to the ER after he was noted to have a low hemoglobin while at [facility] - Patient reports shortness of breath with exertion - Patient is currently hemodynamically stable and afebrile - Hg baseline of ~ 12; Currently 4.2; has improved after 4 unit PRBC transfusion - c/w Protonix and Carafate - Will hold ASA - Consulted Dr. Nye; patient has refused colonoscopy or EGD - he understands the risks that this poses and potential for further bleeding - has verbalized understanding; wants to focus on comfort only at this point - Diet advanced - Extensive discussion with patient about goals of care. Currently, he notes that he does not want any aggressive intervention and will continue with comfort measures alone. Patient does understand that this may ultimately lead to his ; patient has verbalized understanding - New moles for has been updated on 09/08/2020 - Patient will be returning back to [facility] care home s/p Lactic acidosis - possibly 2/2 volume loss s/p Elevated Cr - likely 2/2 pre-renal etiology secondary to volume loss Leukocytosis - likely 2/2 reactive etiology - ROS negative - Hemodynamically stable / afebrile - Will hold off on antibiotics HTN - BP within normal range - Resumed Metoprolol and Furosemide for now Chronic COPD / Chronic hypoxic respiratory failure - No evidence of exacerbation - Will c/w inhaled therapy as ordered and chronic prednisone - c/w home Oxygen Depression - c/w Sertraline BPH / Urinary retention - s/p Chronic Mcfadden catheter - Follows with Dr. Guerra as outpatient Hx of PVC - Will hold ASA GERD - s/p Omeprazole / Replaced with Protonix - See above DVT prophylaxis - c/w TEDs/Sequentials DISCHARGE MEDICATIONS: Please see below. ALLERGIES: Please see below. PHYSICAL EXAMINATION ON DISCHARGE: Vitals (See below) General: Lying in bed, appears comfortable, AAOx3 HEENT: NC, AT CVS: +S1S2 Lungs: Fair air entry b/l, no appreciable wheezing, rhonchi or rales Abdomen: Soft, ND, NT Extremities: - Edema, - Calf tenderness LABORATORY DATA: Please see below. IMAGING: CT abdomen / pelvis with IV contrast 09/07: 1. No obvious acute abdominopelvic pathology appreciated. 2. Colonic diverticulosis and non-obstructed left inguinal hernia containing non-obstructed sigmoid colon. 3. Moderate paraesophageal gastric hiatal hernia. 4. No free air. No free fluid. No focal inflammatory stranding. No adenopathy. 5. Chronic nonacute findings as above. 6. Mild bibasilar atelectasis. ACTIVITY: [As tolerated]. DISCHARGE PLAN: Follow-up with primary care provider as needed Remain compliant with treatment plan and medications; [employer] orders Return to the ER if her symptoms remain uncontrolled DISPOSITION: [facility] Comfort measures DISCHARGE CONDITION: [Stable]. TIME SPENT ON DISCHARGE: 35 minutes. Vital Signs/I&Os Vital Signs Date Time Temp Pulse Resp B/P (MAP) Pulse Ox O2 Delivery O2 Flow Rate FiO2 09/08/20 11:16 71 139/70 09/08/20 08:00 2.0 09/08/20 08:00 97.9 20 93 Nasal Cannula I&O- Last 24 Hours up to 6 AM 09/08/20 06:00 Intake Total 1873 ml Output Total 1250 ml Balance 623 ml Laboratory Data Labs 24H Laboratory Tests 2 09/07/20 15:05: Immature Granulocyte % (Auto) 1.5, Neutrophils (%) (Auto) 65.2, Lymphocytes (%) (Auto) 23.2L, Monocytes (%) (Auto) 9.4H, Eosinophils (%) (Auto) 0.4, Basophils (%) (Auto) 0.3, Neutrophils # (Auto) 7.1, Lymphocytes # (Auto) 2.5, Monocytes # (Auto) 1.0H, Eosinophils # (Auto) 0.0, Basophils # (Auto) 0.0, Nucleated Red Blood Cells % (auto) 0.5H, Prothrombin Time 13.0, Prothromb Time International Ratio 0.96, Anion Gap 6L, Glomerular Filtration Rate 54.4, Lactic Acid Level 2.4*H, Calcium Level 8.2L, Total Bilirubin 0.4, Direct Bilirubin 0.2, Aspartate Amino Transf (AST/SGOT) 11, Alanine Aminotransferase (ALT/SGPT) 14, Alkaline Phosphatase 76, Total Creatine Kinase 97, Creatine Kinase MB 2.0, Creatine Kinase MB Relative Index 2.06, Troponin I 0.03, Total Protein 6.0L, Albumin 2.8L, Albumin/Globulin Ratio 0.9, Lipase 142 09/07/20 15:58: Coronavirus (COVID-19)(PCR) NEGATIVE, Influenza Type A (RT-PCR) NEGATIVE, Influenza Type B (RT-PCR) NEGATIVE, Respiratory Syncytial Virus (PCR) NEGATIVE 09/07/20 16:54: Urine Color YELLOW, Urine Appearance HAZY, Urine pH 5.0, Urine Specific [place] 1.011, Urine Protein NEGATIVE, Urine Glucose (UA) NEGATIVE, Urine Ketones NEGATIVE, Urine Blood 1+H, Urine Nitrite NEGATIVE, Urine Bilirubin NEGATIVE, Urine Urobilinogen 0.2, Urine Leukocyte Esterase 2+H, Urine WBC (Auto) 42H, Urine RBC (Auto) 4H, Urine Hyaline Casts (Auto) 8, Urine Bacteria (Auto) 3+H, Urine Squamous Epithelial Cells 0, Urine Mucus (Auto) SMALL, Urine Sperm (Auto) 09/08/20 05:28: Immature Granulocyte % (Auto) 1.2, Neutrophils (%) (Auto) 51.3, Lymphocytes (%) (Auto) 36.6, Monocytes (%) (Auto) 8.3H, Eosinophils (%) (Auto) 2.2, Basophils (%) (Auto) 0.4, Neutrophils # (Auto) 6.0, Lymphocytes # (Auto) 4.2, Monocytes # (Auto) 1.0H, Eosinophils # (Auto) 0.3, Basophils # (Auto) 0.1, Nucleated Red Blood Cells % (auto) 0.7H, Anion Gap 5L, Glomerular Filtration Rate > 60.0, Calcium Level 7.6L, Lactic Acid Followup at 4 Hours 1.0, Magnesium Level 2.3 CBC/BMP Laboratory Tests 09/07/20 15:05 09/08/20 05:28 Microbiology Microbiology 09/07/20 Urine Culture - Final, Complete Discharge Medications Scheduled Acetylcysteine (Acetylcysteine) 800 Mg/4 Ml Jennifer, 400 MG INH BID, (Reported) 0800, 1800 Albuterol Sulf (Albuterol Sulfate) 2.5 Mg/3 Ml Nebu, 2.5 MG INH BID, (Reported) 0800, 1800 Ferrous Sulfate (Ferrous Sulfate) 325 Mg Tablet, 325 MG PO Q2D, (Reported) Fluticasone/Vilanterol (Breo Ellipta 200-25 Mcg INH) 1 Each Blst.w.dev, 1 PUFF INH DAILY, (Reported) Furosemide (Lasix) 40 Mg Tab, 40 MG PO DAILY, (Reported) Melatonin (Melatonin) 5 Mg Tablet, 5 MG PO QHS, (Reported) Metoprolol Tartrate (Metoprolol Tartrate) 25 Mg Tab, 12.5 MG PO BID, (Reported) Pantoprazole Sodium (Pantoprazole Sodium) 40 Mg Tablet.dr, 40 MG PO BID Prednisone (Prednisone) 5 Mg Tablet, 5 MG PO DAILY, (Reported) Sennosides/Docusate Sodium (Senokot-S Tablet) 1 Tab Tab, 1 TAB PO BID, (Reported) Sertraline HCl (Sertraline HCl) 100 Mg Tab, 150 MG PO DAILY, (Reported) Sucralfate (Sucralfate) 1 Gm Tablet, 1 GM PO ACHS Scheduled PRN Acetaminophen (Tylenol) 325 Mg Tablet, 650 MG PO Q4H PRN for PAIN / FEVER, (Reported) Albuterol Sulf (Albuterol Sulfate) 2.5 Mg/3 Ml Vial.neb, 2.5 MG INH Q2H PRN for SOB/WHEEZING, (Reported) Bisacodyl (Bisacodyl) 10 Mg Supp.rect, 10 MG VT DAILY PRN for CONSTIPATION, (Reported) Magnesium Hydroxide (Milk of Magnesia) 400 Mg/5 Ml Oral.susp, 30 ML PO DAILY PRN for CONSTIPATION, (Reported) Sodium Phosphate,Sawyer-Dibasic (Fleet Enema) 133 Ml Enema, 1 LEENA VT DAILY PRN for CONSTIPATION, (Reported) Allergies Coded Allergies: No Known Allergies (Verified , 09/30/18) BRISEIDA ALBRECHT MD Sep 08, 2020 12:20
[2020-09-08] MEDS ORDERED: PANTOPRAZOLE 40MG TAB (PROTONIX) PO SCH (21:00)
[2020-09-10] MEDS ORDERED: FERROUS SULFATE 325MG TAB PO SCH (09:00)
== END 2020-09-08 14:31 | DRG 812 ==
LOC: M ED 14:20 → M ED INP 17:21 → M PCU 23:39
PROVIDERS: ADMIT Internal Medicine; ATTEND Internal Medicine
PROC: 30233N1 Transfusion of Nonautologous Red Blood Cells into Peripheral Vein, Percutaneous Approach (ICD-10-PCS; principal; 2020-09-07)
DX: D64.9 Anemia, unspecified (principal); E87.2 Acidosis; J96.11 Chronic respiratory failure with hypoxia; K21.9 Gastro-esophageal reflux disease without esophagitis; I10 Essential (primary) hypertension; D72.829 Elevated white blood cell count, unspecified; J44.9 Chronic obstructive pulmonary disease, unspecified; F32.9 Major depressive disorder, single episode, unspecified; N40.0 Benign prostatic hyperplasia without lower urinary tract symptoms; Z79.899 Other long term (current) drug therapy; Z99.81 Dependence on supplemental oxygen; I73.9 Peripheral vascular disease, unspecified; K44.9 Diaphragmatic hernia without obstruction or gangrene

== ENCOUNTER → 2020-09-07 | Outpatient (REF) | payer MEDICARE, MEDICAID ==
[2020-09-07 13:24] LABS: BASO % 0.3 % (0.0-1.0); EOS # 0.1 10^3/uL (0.0-0.5); EOS % 0.7 % (0.0-3.0); LYMPH # 3.4 10^3/uL (1.5-5.0); MEAN CORPUSCULAR HEMOGLOBIN 30.8 pg (27.0-33.0); MONO # 0.9 10^3/uL (0.0-0.8); MONO % 7.7 % (0.0-5.0); NEUTROPHILS # 6.8 10^3/uL (1.5-8.5); PLATELET COUNT, AUTOMATED 228 10^3/uL (150-450); WHITE BLOOD COUNT 11.4 10^3/uL (4.0-10.0)
[2020-09-07 13:25] LABS: HEMATOCRIT 13.2 % (42.0-52.0); HEMOGLOBIN 3.7 g/dl (13.5-17.5)
[2020-09-07 13:54] LABS: ALBUMIN 2.7 GM/DL (3.2-5.2); ALT/SGPT 12 U/L (12-78); BILIRUBIN,DIRECT 0.2 MG/DL (0.0-0.2); BILIRUBIN,TOTAL 0.5 MG/DL (0.2-1.0); BLOOD UREA NITROGEN 44 MG/DL (7-18); CALCIUM LEVEL 7.9 MG/DL (8.8-10.2); CARBON DIOXIDE LEVEL 34 MEQ/L (21-32); CHLORIDE LEVEL 95 MEQ/L (98-107); CREATININE FOR GFR 1.21 MG/DL (0.70-1.30); GLOMERULAR FILTRATION RATE > 60.0 (>42); GLUCOSE, FASTING 123 MG/DL (70-100); POTASSIUM SERUM 3.2 MEQ/L (3.5-5.1); SODIUM LEVEL 135 MEQ/L (136-145); TOTAL PROTEIN 5.6 GM/DL (6.4-8.2)
== END ==
PROVIDERS: ATTEND Internal Medicine
DX: R17 Unspecified jaundice (principal)

== ENCOUNTER → 2020-09-11 | Outpatient (REF) | payer MEDICAID, MEDICARE ==
[~2020-09-11] MED LIST changes: +ASPI-161 PO; +PANT40TA29 PO; +SUCR1TA PO
== END ==
PROVIDERS: ATTEND Internal Medicine
DX: Z20.828 Contact with and (suspected) exposure to other viral communicable diseases (principal)

== ENCOUNTER → 2020-09-15 | Outpatient (REF) | payer MEDICAID, MEDICARE | PROVIDERS: ATTEND Internal Medicine | DX: Z20.828 Contact with and (suspected) exposure to other viral communicable diseases (principal) ==

== ENCOUNTER → 2020-09-20 | Outpatient (REF) | payer MEDICAID, MEDICARE | PROVIDERS: ATTEND Internal Medicine | DX: Z20.828 Contact with and (suspected) exposure to other viral communicable diseases (principal) ==

== ENCOUNTER → 2020-09-27 | Outpatient (REF) | payer MEDICAID, MEDICARE | PROVIDERS: ATTEND Internal Medicine | DX: Z11.52 Encounter for screening for COVID-19 (principal) ==

== ENCOUNTER → 2020-10-04 | Outpatient (REF) | payer MEDICARE, MEDICAID | PROVIDERS: ATTEND Internal Medicine | DX: Z20.822 Contact with and (suspected) exposure to COVID-19 (principal) ==

== ENCOUNTER → 2020-10-11 | Outpatient (REF) | payer MEDICARE, MEDICAID | PROVIDERS: ATTEND Internal Medicine | DX: Z20.822 Contact with and (suspected) exposure to COVID-19 (principal) ==

== ENCOUNTER → 2020-10-18 | Outpatient (REF) | payer MEDICARE, MEDICAID | PROVIDERS: ATTEND Internal Medicine | DX: Z20.822 Contact with and (suspected) exposure to COVID-19 (principal) ==

== ENCOUNTER → 2020-10-25 | Outpatient (REF) | payer MEDICARE, MEDICAID | PROVIDERS: ATTEND Internal Medicine | DX: Z20.822 Contact with and (suspected) exposure to COVID-19 (principal) ==

== ENCOUNTER → 2020-11-01 | Outpatient (REF) | payer MEDICARE, MEDICAID | PROVIDERS: ATTEND Internal Medicine | DX: Z20.822 Contact with and (suspected) exposure to COVID-19 (principal) ==

== ENCOUNTER → 2020-11-08 | Outpatient (REF) | payer MEDICARE, MEDICAID | PROVIDERS: ATTEND Internal Medicine | DX: Z20.822 Contact with and (suspected) exposure to COVID-19 (principal) ==

== ENCOUNTER → 2020-11-15 | Outpatient (REF) | payer MEDICARE, MEDICAID | PROVIDERS: ATTEND Internal Medicine | DX: Z11.52 Encounter for screening for COVID-19 (principal) ==

== ENCOUNTER → 2020-12-08 | Outpatient (REF) | payer MEDICARE, MEDICAID ==
[2020-12-08 20:15] LABS: INFLUENZA A AMPLIFICATION NEGATIVE (NEGATIVE); INFLUENZA B AMPLIFICATION NEGATIVE (NEGATIVE)
== END ==
PROVIDERS: ATTEND Internal Medicine
DX: Z11.59 Encounter for screening for other viral diseases (principal)

== ENCOUNTER → 2020-12-19 | Outpatient (REF) | payer MEDICARE, MEDICAID ==
[~2020-12-19] MED LIST changes: +FERR324T21 PO; -FERR325T16 PO
== END ==
PROVIDERS: ATTEND Internal Medicine
DX: Z20.822 Contact with and (suspected) exposure to COVID-19 (principal)

== ENCOUNTER → 2021-02-21 | Outpatient (REF) | payer MEDICARE, MEDICAID ==
--- NOTE | 2021-02-21 15:05 | REPPI ---
INDICATION: SOB [id number]. COMPARISON: Multiple latest 09/15/2019 TECHNIQUE: AP FINDINGS: there is no change from the prior exam. The cardiomediastinal silhouette, lung higgins, and osseous structures are stable. Chronic changes again samson proximal left humerus IMPRESSION: No evidence of acute disease or significant change compared to the prior exam. <Electronically signed by Frank Iniguez > 02/21/21 [id number]
== END ==
PROVIDERS: ATTEND Nurse Practitioner Adult Health
DX: R06.02 Shortness of breath (principal)

== ENCOUNTER → 2021-04-06 | Outpatient (REF) | payer MEDICARE, MEDICAID ==
[~2021-04-06] MED LIST changes: -DOXY100C PO; +DOXY100C3 PO
[2021-04-06 11:25] LABS: HEMATOCRIT 25.5 % (42.0-52.0); HEMOGLOBIN 7.7 g/dl (13.5-17.5); MEAN CORPUSCULAR HEMOGLOBIN 32.1 pg (27.0-33.0); MEAN CORPUSCULAR HGB CONC 30.2 g/dl (32.0-36.5); MEAN CORPUSCULAR VOLUME 106.3 fl (80.0-96.0); PLATELET COUNT, AUTOMATED 212 10^3/uL (150-450); WHITE BLOOD COUNT 8.9 10^3/uL (4.0-10.0)
[2021-04-06 11:28] LABS: ALT/SGPT 15 U/L (12-78); BILIRUBIN,TOTAL 0.3 MG/DL (0.2-1.0); BLOOD UREA NITROGEN 24 MG/DL (7-18); CALCIUM LEVEL 8.3 MG/DL (8.8-10.2); CARBON DIOXIDE LEVEL 37 MEQ/L (21-32); CHLORIDE LEVEL 101 MEQ/L (98-107); CREATININE FOR GFR 0.96 MG/DL (0.70-1.30); GLOMERULAR FILTRATION RATE > 60.0 (>42); GLUCOSE, FASTING 141 MG/DL (70-100); POTASSIUM SERUM 4.6 MEQ/L (3.5-5.1); SODIUM LEVEL 140 MEQ/L (136-145); TOTAL PROTEIN 6.1 GM/DL (6.4-8.2)
== END ==
PROVIDERS: ATTEND Internal Medicine
DX: K92.2 Gastrointestinal hemorrhage, unspecified (principal)

== ENCOUNTER → 2021-04-09 | Outpatient (REF) | payer MEDICARE, MEDICAID ==
[2021-04-09 12:28] LABS: HEMATOCRIT 25.2 % (42.0-52.0); HEMOGLOBIN 7.5 g/dl (13.5-17.5); MEAN CORPUSCULAR HEMOGLOBIN 31.6 pg (27.0-33.0); MEAN CORPUSCULAR HGB CONC 29.8 g/dl (32.0-36.5); MEAN CORPUSCULAR VOLUME 106.3 fl (80.0-96.0); PLATELET COUNT, AUTOMATED 207 10^3/uL (150-450); RED BLOOD COUNT 2.37 10^6/uL (4.30-6.10); WHITE BLOOD COUNT 7.9 10^3/uL (4.0-10.0)
[2021-04-09 12:48] LABS: ALT/SGPT 14 U/L (12-78); BILIRUBIN,TOTAL 0.3 MG/DL (0.2-1.0); BLOOD UREA NITROGEN 19 MG/DL (7-18); CALCIUM LEVEL 8.9 MG/DL (8.8-10.2); CARBON DIOXIDE LEVEL 39 MEQ/L (21-32); CHLORIDE LEVEL 100 MEQ/L (98-107); CREATININE FOR GFR 1.06 MG/DL (0.70-1.30); GLOMERULAR FILTRATION RATE > 60.0 (>42); GLUCOSE, FASTING 127 MG/DL (70-100); POTASSIUM SERUM 3.9 MEQ/L (3.5-5.1); SODIUM LEVEL 141 MEQ/L (136-145); TOTAL PROTEIN 6.3 GM/DL (6.4-8.2)
== END ==
PROVIDERS: ATTEND Internal Medicine
DX: K92.2 Gastrointestinal hemorrhage, unspecified (principal)

== ENCOUNTER → 2021-06-27 | Outpatient (REF) | payer MEDICARE, MEDICAID ==
[2021-06-27 11:22] LABS: CREATININE FOR GFR 1.62 MG/DL (0.70-1.30)
[2021-06-27 11:23] LABS: ALBUMIN 2.6 GM/DL (3.2-5.2); BILIRUBIN,TOTAL 0.3 MG/DL (0.2-1.0); CALCIUM LEVEL 8.7 MG/DL (8.8-10.2); GLOMERULAR FILTRATION RATE 44.1 (>42); PERCENT SATURATION 18.8 % (19.7-50.0); POTASSIUM SERUM 5.2 MEQ/L (3.5-5.1); TOTAL PROTEIN 7.3 GM/DL (6.4-8.2)
== END ==
PROVIDERS: ATTEND Internal Medicine
DX: D50.9 Iron deficiency anemia, unspecified (principal)

== ENCOUNTER → 2021-06-27 | Outpatient (REF) | payer MEDICARE, MEDICAID ==
[2021-06-27 10:44] LABS: HEMOGLOBIN 8.4 g/dl (13.5-17.5); MEAN CORPUSCULAR HEMOGLOBIN 30.2 pg (27.0-33.0); MEAN CORPUSCULAR VOLUME 104.3 fl (80.0-96.0); PLATELET COUNT, AUTOMATED 201 10^3/uL (150-450); RED BLOOD COUNT 2.78 10^6/uL (4.30-6.10); WHITE BLOOD COUNT 8.8 10^3/uL (4.0-10.0)
== END ==
PROVIDERS: ATTEND Internal Medicine
DX: D50.9 Iron deficiency anemia, unspecified (principal)

== ENCOUNTER → 2021-06-28 | Outpatient (REF) | payer MEDICARE, MEDICAID ==
[2021-06-28 13:53] LABS: BLOOD UREA NITROGEN 20 MG/DL (7-18); CALCIUM LEVEL 8.6 MG/DL (8.8-10.2); CARBON DIOXIDE LEVEL 37 MEQ/L (21-32); CHLORIDE LEVEL 99 MEQ/L (98-107); CREATININE FOR GFR 0.97 MG/DL (0.70-1.30); GLOMERULAR FILTRATION RATE > 60.0 (>42); GLUCOSE, FASTING 98 MG/DL (70-100); POTASSIUM SERUM 4.1 MEQ/L (3.5-5.1); SODIUM LEVEL 140 MEQ/L (136-145)
[2021-06-28 14:36] LABS: HEMOGLOBIN A1c 5.3 %
[2021-06-28 20:46] LABS: NT-PRO BNP 765 PG/ML (<450)
== END ==
PROVIDERS: ATTEND Internal Medicine
DX: D50.9 Iron deficiency anemia, unspecified (principal); Z79.899 Other long term (current) drug therapy

== ENCOUNTER → 2021-07-05 | Outpatient (REF) | payer MEDICARE, MEDICAID ==
[2021-07-05 10:24] LABS: INR 0.98; PROTHROMBIN TIME 13.4 SECONDS (12.7-14.5)
[2021-07-05 10:58] LABS: ALBUMIN 3.2 GM/DL (3.2-5.2); ALT/SGPT 17 U/L (12-78); BILIRUBIN,TOTAL 0.3 MG/DL (0.2-1.0); BLOOD UREA NITROGEN 21 MG/DL (7-18); CALCIUM LEVEL 8.7 MG/DL (8.8-10.2); CARBON DIOXIDE LEVEL 39 MEQ/L (21-32); CHLORIDE LEVEL 101 MEQ/L (98-107); CREATININE FOR GFR 1.09 MG/DL (0.70-1.30); GLOMERULAR FILTRATION RATE > 60.0 (>42); GLUCOSE, FASTING 136 MG/DL (70-100); POTASSIUM SERUM 4.4 MEQ/L (3.5-5.1); SODIUM LEVEL 139 MEQ/L (136-145)
[2021-07-05 11:22] LABS: VITAMIN B12 LEVEL 1195 PG/ML (247-911)
== END ==
PROVIDERS: ATTEND Internal Medicine
DX: I50.9 Heart failure, unspecified (principal); I11.0 Hypertensive heart disease with heart failure; K74.60 Unspecified cirrhosis of liver

== ENCOUNTER → 2021-07-12 | Outpatient (CLI) | payer MEDICARE, MEDICAID ==
--- NOTE | 2021-07-12 12:01 | REP ---
INDICATION: CIRRHOSIS. COMPARISON: None TECHNIQUE: Real-time sonographic evaluation of the right upper quadrant with Doppler FINDINGS: The technologist has indicated on the worksheet that the examination is extremely limited due to the patient's condition. Multiple ultrasonographic images of the liver show the hepatic parenchymal echo texture to appear unremarkable. There are no focal masses. There is no intrahepatic ductal dilatation. The common bile duct measures approximately 4 mm in its greatest transverse dimension. Multiple ultrasonographic images of the gallbladder show no focal or diffuse gallbladder wall thickening. There are no echogenic foci within the gallbladder lumen, which casts acoustic shadows. There is no pericholecystic edema. Images of the pancreatic region show no gross abnormality. The imaged portion of the right kidney shows 2 anechoic structures in the upper pole region each exhibiting posterior wall enhancement and increased through transmission 1 measuring 2.5 x 2.2 x 2.3 cm and the other 2.6 x 1.9 x 2 x 1 cm. IMPRESSION: There are 2 simple right renal cyst as described above. Examination is otherwise unremarkable as presented. Accredited by the [employer] in General Ultrasound. <Electronically signed by Frank Iniguez > 07/12/21 [id number]
== END ==
LOC: M RAD 08:36
PROVIDERS: ATTEND Internal Medicine
DX: K74.60 Unspecified cirrhosis of liver (principal); I50.9 Heart failure, unspecified; N28.1 Cyst of kidney, acquired

== ENCOUNTER → 2021-08-29 | Outpatient (REF) | payer MEDICARE, MEDICAID ==
[2021-08-29 11:45] LABS: HEMATOCRIT 34.4 % (42.0-52.0); HEMOGLOBIN 10.7 g/dl (13.5-17.5); MEAN CORPUSCULAR HEMOGLOBIN 33.1 pg (27.0-33.0); MEAN CORPUSCULAR HGB CONC 31.1 g/dl (32.0-36.5); MEAN CORPUSCULAR VOLUME 106.5 fl (80.0-96.0); PLATELET COUNT, AUTOMATED 175 10^3/uL (150-450); RED BLOOD COUNT 3.23 10^6/uL (4.30-6.10); WHITE BLOOD COUNT 14.7 10^3/uL (4.0-10.0)
[2021-08-29 12:11] LABS: CREATININE FOR GFR 1.63 MG/DL (0.70-1.30); GLOMERULAR FILTRATION RATE 43.7 (>42); POTASSIUM SERUM 4.1 MEQ/L (3.5-5.1)
== END ==
PROVIDERS: ATTEND Internal Medicine
DX: I50.9 Heart failure, unspecified (principal)